=== PATIENT | female | born 1995 | race Caucasian/White ===

== ENCOUNTER 2024-08-31 10:09 | Emergency (ER) | payer OTHER, SELFPAY ==
[2024-08-31 10:16] VITALS: BP 120/60; PULSE 100; TEMP 36.7; O2SAT 98; BMI 31.3
--- NOTE | 2024-08-31 10:21 | XR_ITS ---
The [address] [address] Patient Name: CARMELINA GARCIA MRN: [id number] date: 1995 Sex: F Assigned Patient Location: ER Current Patient Location: ER Accession/Order Number: [id number] Exam Date: 08/31/2024 10:42 Report Date: 08/31/2024 13:48 At the request of: LIA GALLEGOS Procedure: XR foot RT min 3V EXAM: XR foot RT min 3V HISTORY: Fall. COMPARISON: None. TECHNIQUE: 3 views. FINDINGS: There is a minimally displaced fracture from the base of the fifth metatarsal. XR/XR foot RT min 3V IMPRESSION: Minimally displaced base of fifth metatarsal fracture. Electronically authenticated by: Luis Alberto GRIGGS Date: 08/31/2024 13:48
--- NOTE | 2024-08-31 10:22 | ED_ITS ---
HPI HPI - Extremity Injury (Lower) General Chief Complaint: Extremity Injury, Lower Stated Complaint: LOWER EXTREMITY INJURY Time Seen by Provider: 08/31/24 10:15 Source: patient Mode of arrival: walk-in Limitations: no limitations History of Present Illness HPI Narrative: 28-year-old female presents to the emergency department for pain in her right foot. She fell within the last hour and hurt the lateral aspect of her foot. She did not sustain any other injury. Related Data Previous Rx's ?Medication ?Instructions ?Recorded acetaminophen 300 mg-codeine 30 mg 1 tab PO Q6H PRN pain 5 days #20 08/31/24 tablet tabs Allergies Allergy/AdvReac Type Severity Reaction Status Date / Time No Known Drug Allergies Allergy Verified 08/31/24 10:20 Opioid HPI Opioid Management Most Recent Pain and Opioid Data: No Data to Display Review of Systems ROS Narrative A ten point review of systems is negative except as noted above. PFSH PFSH Social History Little interest or pleasure in doing things: not at all Feeling down, depressed, or hopeless: not at all Exam Narrative Exam Narrative: Nurses note and vital signs reviewed and patient is not hypoxic. General: The patient is sitting in a wheelchair and is in no distress. Skin: Warm, dry, no pallor noted. There is no rash noted. Head: Normocephalic, atraumatic Eye: Normal conjunctiva, no drainage Ears, Nose, Mouth, and Throat: oral mucosa is moist. Nares patent. Cardiovascular: Regular Rate and Rhythm Respiratory: Patient is in no distress, no accessory muscle use GI: Nontender Musculoskeletal: The right ankle is not tender. The skin is intact in her right foot but there is swelling and tenderness at the base of the fifth metatarsal area. Neurological: Awake and alert Psychiatric: Cooperative Constitutional Vital Signs, click to edit/add: Last Vital Signs Temp 98.0 F 08/31/24 10:16 Pulse 100 H 08/31/24 10:16 Resp 18 08/31/24 10:16 BP 120/60 08/31/24 10:16 Pulse Ox 98 08/31/24 10:16 Course Vital Signs Vital signs: Vital Signs Temperature 98.0 F 08/31/24 10:16 Pulse Rate 100 H 08/31/24 10:16 Respiratory Rate 18 08/31/24 10:16 Blood Pressure 120/60 08/31/24 10:16 Pulse Oximetry 98 08/31/24 10:16 Temperature 98.0 F 08/31/24 10:16 Pulse Rate 100 H 08/31/24 10:16 Respiratory Rate 18 08/31/24 10:16 Blood Pressure 120/60 08/31/24 10:16 Pulse Oximetry 98 08/31/24 10:16 MDM - Extremity Injury (Lower) MDM Narrative Medical decision making narrative: Right fifth metatarsal fracture is identified with displacement. The following procedure was performed by me. Short leg splint applied, application checked by me and found to be appropriate, she is neurovascular intact. She is referred to podiatry and placed on crutches and provided pain medication. Treatment diagnosis and follow-up were discussed with the patient. Differential Diagnosis Differential diagnosis: Likely other (Foot fracture, foot sprain) Imaging Data Right foot x-ray: My impression: Fifth metatarsal fracture, mildly displaced Discharge Plan Discharge Chief Complaint: Extremity Injury, Lower Clinical Impression: Metatarsal fracture Patient Disposition: Home, Self-Care Time of Disposition Decision: 11:24 Condition: Good Mode of Transportation: Private Vehicle Prescriptions / Home Meds: New acetaminophen-codeine 300-30 mg tablet 1 tab PO Q6H PRN (Reason: pain) 5 Days Qty: 20 0RF Print Language: Greenlandic Instructions: Crutch Instructions (ED), Foot Fracture in Adults (ED) Referrals: Pavan Pickard DDS [Physician] - 1 week Sb Forman DPM [Physician] - 1 week
== END 2024-08-31 11:45 | disposition home or self-care (01) ==
PROVIDERS: Emergency Provider Emergency Medicine
DX: S92.351A Displaced fracture of fifth metatarsal bone, right foot, initial encounter for closed fracture (principal); W19.XXXA Unspecified fall, initial encounter
CPT/HCPCS: 29515; 73630; 99283

== ENCOUNTER 2024-10-09 12:30 | Outpatient (OUT) | payer OTHER, SELFPAY ==
--- NOTE | 2024-10-09 12:32 | XR_ITS ---
The [address] [address] Patient Name: CARMELINA GARCIA MRN: [id number] date: 1995 Sex: F Assigned Patient Location: [facility] Current Patient Location: Accession/Order Number: [id number] Exam Date: 10/09/2024 12:35 Report Date: 10/12/2024 07:40 At the request of: ADAIR GRANADOS Procedure: XR foot RT min 3V PROCEDURE: XR foot RT min 3V HISTORY: pain in right foot M79.671 ; follow-up fracture COMPARISON: XR foot right 08/31/2024 FINDINGS: BONES:Transverse fractures through base of 5th metatarsal with intra-articular extension. Minimal lateral displacement. Increased lucency at fracture line compatible with early osseous changes of bone healing. No callus formation. SOFT TISSUES:No visible soft tissue swelling. EFFUSION:None visible. OTHER: Negative. XR/XR foot RT min 3V IMPRESSION: 1. Stable alignment and suspected early osseous changes involving base of 5th metatarsal intra-articular fracture. Electronically authenticated by: SHEELA DIAZ Date: 10/12/2024 07:40
--- OUTSIDE RECORDS SUMMARY | 2024-10-09 12:36 | XMS_ITS | CCD ---
Author Organization [facility] Inform ion Partnership [facility] Care Team Providers Care Cleaning Staff Supervisor Name Role Phone Manolo Davis Primary Care Provider AMNA TERRELL Attending Unavailable MANOLO DAVIS Primary Care Unavailab MANOLO Pedroza Primary Care Unavailab AMNA Rao Attending Unavailable Manolo Davis Primary Care Provider Unavailable Primary Care Provider UnavailManolo Morgan Primary Care Provider Unavail able Wilfrid Pickard MD, [facility] Primary Care Provider MALLY ROLDAN Consulting Unavailable MALLY ROLDAN Attending Unavailable PETER, PAVAN Primary Care Unavailable MALLY ROLDAN Admitting Unavailable Nely Arita Consulting Unavailable Fredy Lerma Unavailable Wilfrid Pickard MD, [facility] Primary Care Provider WILFRID PICKARD, PAVAN Primary Care Unavailabl e LIZZY LUGO Referring Unavail able KHORSAND PETER, PAVAN Primary Care Unavailmalcolm e LIZZY LUGO Admitting Unavail able LIZZY LUGO Attending Unavail able KHORSAND PETER, PAVAN Primary Care Unavailabl e KHORSAND PETER, PAVAN Primary Care Unavailabl MANOLO Ferreira Attending Unavailable JUSTIN MILES Attending Unavailable KHORSAND PETER, PAVAN Primary Care Unavailabl e KHORSAND PETER, PAVAN Primary Care Unavailabl e LIZZY LUGO Referring Unavail able KHORSAND PETER, PAVAN Primary Care Unavailabl e KHORSAND PETER, PAVAN Primary Care Unavailabl e FREDY LERMA Referring Unavailable Medications Current Medications Medication Drug Class(es) Dates Sig (Normalized) Sig (Original) acetaminophen 325 mg oral tablet (8 sources) Start: 12-02-2022 take 2 tablets by mouth every six hours as needed for pain acetaminophen (TYLENOL) 325 MG tablet Take 2 tablets by mouth every 6 hours as needed for Pain or Fever 60 tablet 0 12/02/2022 Active Start: 06-13-2022 End: 06-13-2022 acetaminophen (TYLENOL) tabl et 650 mg Start: 11-30-2020 End: 11-30-2020 acetaminophen (TYLENOL) tabl et 650 mg Tylenol Active acetaminophen 325 mg / HYDROcodone bitartrate 5 mg oral tablet (3 sources) Opioid Agonist Start: 06-13-2022 End: 06-18-2022 HYDROcodone-acetaminophen (NORCO) 5-325 MG per tablet Indications: Post-op pain Take 1 tablet by mouth every 6 hours as needed for Pain for up to 5 days. Intended supply: 5 days. Take lowest dose possible to manage pain 10 tablet 0 06/13/2022 06/18/2022 Active Start: 11-30-2020 End: 12-02-2020 take 1 tablet by mouth every four hours as needed for pain, then take 1 tablet by mouth as needed for pain HYDROcodone-acetaminophen (NORCO) 5-325 MG per tablet Indications: Post-op pain Take 1 tablet by mouth every 4 hours as needed for Pain for up to 2 days. Intended supply: 3 days. Take lowest dose possible to manage pain 12 tablet 0 11/30/2020 12/02/2020 Active Start: 11-30-2020 End: 11-30-2020 take 1 tablet by mouth once as needed for pain 1 tablet, Oral, ONCE PRN, Pain Moderate (4-6), Pain Severe (7-10), Starting 11/30/20 at 0751, For 1 dose PHASE II PACU only amoxicillin 500 mg oral capsule (1 source) Penicillin-class Antibacterial Start: 01-20-2023 End: 01-30-2023 take 1 capsule by mouth twice daily amoxicillin (AMOXIL) 500 MG capsule Take 1 capsule by mouth 2 times daily for 10 days 20 capsule 0 01/20/2023 01/30/2023 Active ARIPiprazole 5 mg oral tablet (2 sources) Atypical Antipsychotic Start: 12-20-2022 take 1 tablet by mouth at bedtime ARIPiprazole (ABILIFY) 5 MG tablet take 1 tablet by mouth at bedtime 0 12/20/2022 Active calcium chloride 0.0014 meq/ml / potassium chloride 0.004 meq/ml / sodium chloride 0.103 meq/ml / sodium lactate 0.028 meq/ml injectable solution (2 sources) Start: 06-13-2022 lactated ringers infusion Start: 11-30-2020 lactated ringe rs infusion dicyclomine hydrochloride 10 mg oral capsule (5 sources) Anticholinergic Start: 03-28-2022 take 1 capsule by mouth three times daily as needed Dicyclomine HCl 10 MG 1 capsule Orally Three times a day PRN for 30 day(s) March, Active Start: 03-24-2022 take 1 tablet by jessica three times daily for pain dicyclomine (BENTYL) 20 MG tablet take 1 tablet by mouth three times a day if needed for abdominal pain 0 03/24/2022 Active diphenhydrAMINE hydrochloride 25 mg oral capsule (1 source) Histamine-1 Receptor Antagonist Start: 08-04-2021 End: 08-14-2021 take 1 capsule by mouth every four hours as needed for sleep diphenhydrAMINE (BENADRYL) 25 MG capsule Take 1 capsule by mouth every 4 hours as needed for Sleep (Take one hour before bedtime) 30 capsule 0 08/04/2021 08/14/2021 Active doxycycline hyclate 100 mg oral tablet (1 source) Tetracycline-class Drug Start: 03-19-2020 End: 03-29-2020 take 1 tablet by mouth twice daily doxycycline hyclate (VIBRA-TABS) 100 MG tablet Indications: Abdominal pain, unspecified abdominal location Take 1 tablet by mouth 2 times daily for 10 days 20 tablet 0 03/19/2020 03/29/2020 Active DULoxetine 60 mg delayed release oral capsule (10 sources) Serotonin and Norepinephrine Reuptake Inhibitor Start: 12-20-2022 take 1 capsule by mouth once daily in the morning DULoxetine (CYMBALTA) 60 MG extended release capsule take 1 capsule by mouth every morning 0 12/20/2022 Active Start: 08-10-2021 take 1 capsule by mo [facility] once daily DULoxetine (CYMBALTA) 30 MG extended release capsule Take 30 mg by mouth daily 0 08/10/2021 Suspended DULoxetine HCl A ctive Ferrous Hltgmrhhe-B-Djqqm Ac id (IRON-C PO) (8 sources) Ferrous Gluconat e-C-Folic Acid (IRON-C PO) Take by mouth 0 Suspended Ferrous Gluconat e-C-Folic Acid (IRON-C PO) Take by mouth 0 Active ferrous sulfate 325 mg oral tablet (4 sources) take 1 tablet by mouth every other day Iron 325 (65 Fe) MG 1 tablet Orally EVERY OTHER DAY Active hydrOXYzine pamoate 25 mg oral capsule (12 sources) Antihistamine Start: 11-23-2022 hydrOXYzine pamoate (VISTARIL) 25 MG capsule USE DIRECTED UP TO TWICE A DAY IF NEEDED FOR PANIC ATTACK OR INSOMNIA 0 11/23/2022 Active Start: 02-08-2022 hydrOXYzine (A TARAX) 25 MG tablet hydrOXYzine HCl Active ibuprofen 600 mg oral tablet (13 sources) Nonsteroidal Anti-inflammatory Drug Start: 01-20-2023 take 1 tablet by mouth every six hours as needed for pain ibuprofen (IBU) 600 MG tablet Take 1 tablet by mouth every 6 hours as needed for Pain 20 tablet 0 01/20/2023 Active Start: 12-02-2022 End: 01-20-2023 take 1 tablet by mouth every six hours as needed for pain ibuprofen (IBU) 600 MG tablet Take 1 tablet by mouth every 6 hours as needed for Pain 120 tablet 0 12/02/2022 01/20/2023 Discontinued (REORDER) Start: 05-03-2022 ibuprofen (ADV IL;MOTRIN) tablet 800 mg Start: 08-04-2021 take 1 tablet by jessica th every six hours as needed for pain ibuprofen (IBU) 400 MG tablet Take 1 tablet by mouth every 6 hours as needed for Pain 30 tablet 0 08/04/2021 Suspended Motrin Active ketorolac tromethamine 10 mg oral tablet (3 sources) Nonsteroidal Anti-inflammatory Drug, Cyclooxygenase Inhibitor Start: 06-13-2022 End: 06-13-2023 take 1 tablet by mouth every six hours as needed for pain ketorolac (TORADOL) 10 MG tablet Take 1 tablet by mouth every 6 hours as needed for Pain 20 tablet 0 06/13/2022 06/13/2023 Active Start: 08-04-2021 End: 08-04-2021 ketorolac (TORADOL) injectio n 30 mg Start: 11-30-2020 take 1 tablet by jessica th every six hours as needed for pain ketorolac (TORADOL) 10 MG tablet Take 1 tablet by mouth every 6 hours as needed for Pain 12 tablet 0 11/30/2020 Active lamoTRIgine 25 mg oral tablet (2 sources) Mood Stabilizer, Anti-epileptic Agent Start: 12-20-2022 take 15-30 tablets by mouth once daily in the morning lamoTRIgine (LAMICTAL) 25 MG tablet TAKE 1 TABLET BY MOUTH EVERY MORNING ON DAYS 1-14 THEN 2 TABLETS EVERY MORNING ON DAYS 15-30 0 12/20/2022 Active lidocaine 0.05 mg/mg medicated patch (6 sources) Antiarrhythmic, Amide Local Anesthetic Start: 12-12-2022 apply 1 dose transdermal route once daily lidocaine (LIDODERM) 5 % APPLY 1 PATCH TO AFFECTED AREA ONCE DAILY IF NEEDED - LEAVE ON FOR 12 HOURS AND THEN OFF 12 HOURS 0 12/12/2022 Active Lidocaine Active 2 ml metoclopramide 5 mg/ml prefilled syringe (2 sources) Dopamine-2 Receptor Antagonist Start: 06-13-2022 End: 06-13-2022 10 mg, IntraVENous, ONCE PRN, 1 dose, Starting on Mon06/13/22 at 1129, Until Mon06/13/22 at 2359, Nausea Secondary antiemetic therapy. PACU only Start: 11-30-2020 End: 11-30-2020 10 mg, Intravenous, ONCE PRN , Nausea, Starting Mon11/30/20 at 0751, For 1 dose Initial antiemetic therapy. PACU only 2 ml ondansetron 2 mg/ml injection (1 source) Serotonin-3 Receptor Antagonist Start: 06-13-2022 End: 06-13-2022 4 mg, IntraVENous, ONCE PRN, 1 dose, Starting on Mon06/13/22 at 1129, Until Mon06/13/22 at 2359, Nausea Initial antiemetic therapy. PACU only oseltamivir 75 mg oral capsule (2 sources) Neuraminidase Inhibitor take 1 capsule by mouth twice daily oseltamivir (TAMIFLU) 75 MG capsule Take 75 mg by mouth 2 times daily 0 Active PARAGARD INTRAUTERINE COPPER IUD (1 source) PARAGARD INTRAUTERINE COPPER IUD 1 each by Intrauterine route once 0 Active PARoxetine hydrochloride 20 mg oral tablet (2 sources) Serotonin Reuptake Inhibitor Start: 10-24-2022 take 1 tablet by mouth once daily in the evening PARoxetine (PAXIL) 20 MG tablet take 1 tablet by mouth every evening 0 10/24/2022 Active prazosin 1 mg oral capsule (2 sources) alpha-Adrenergic Evette Start: 12-20-2022 take 1 capsule by mouth at bedtime prazosin (MINIPRESS) 1 MG capsule take 1 capsule by mouth at bedtime 0 12/20/2022 Active 1 ml promethazine hydrochloride 25 mg/ml injection (1 source) Phenothiazine Start: 11-30-2020 End: 11-30-2020 6.25 mg, Intramuscular, ONCE PRN, Nausea, Starting Mon11/30/20 at 0751, For 1 dose Recommended route is IM. Cau tion if used IV:Check IV site for infiltrate prior to and during administration.&nb sp; Secondary antiemetic therapy. For IV administration, dilute to 10ml with normal saline. Must be administered over at least 10 minutes. PACU only 1000 ml sodium chloride 9 mg/ml injection (9 sources) Start: 06-13-2022 IntraVENous, at 5-250 mL/hr, PRN, if patient receiving piggyback infusions and maintenance fluids are not ordered OR KVO fluids to protect IV site / prevent frequent line interruptions/ long duration, Starting on Mon06/13/22 at 1129 For piggyback infusion, administer at same rate as piggyback for a total of 25 mL. Enter 25 mL into dose field and piggyback rate into rate field of order. If piggyback is infusing at a rate less than 100 mL/hr, enter 25 mL into dose field and 100 mL/hr into rate field of order. For KVO fluids, enter rate of 20 mL/hr or less into rate field of order. PACU only Start: 06-13-2022 take 1 dose intraven ously twice daily 5-40 mL, IntraVENous, EVERY 12 HOURS SCHEDULED (2 times per day), First dose on Mon06/13/22 at 1145, Until Discontinued For Line Patency: Peripheral IV = 5 mL; Midline or Central Line = 10 mL/lumen. If following IV push medication, administer flush at same rate as the IV push. Flush volume is determined by type of infusion therapy being given. For non-viscous solutions use: Peripheral IV = 5 mL Midline or Central Line = 10 mL/lumen For viscous solutions (i.e. blood components, parenteral nutrition, contrast media, or after obtaining blood sample) use: Peripheral IV = 10 mL Midline or Central Line = 20 mL/lumen PACU only Start: 06-13-2022 take 5-40 mL intrave nously once as needed 5-40 mL, IntraVENous, PRN, Starting on Mon06/13/22 at 1129, Until Discontinued, Line Care, After every IV line use For Line Patency: Peripheral IV = 5 mL; Midline or Central Line = 10 mL/lumen. If following IV push medication, administer flush at same rate as the IV push. Flush volume is determined by type of infusion therapy being given. For non-viscous solutions use: Peripheral IV = 5 mL Midline or Central Line = 10 mL/lumen For viscous solutions (i.e. blood components, parenteral nutrition, contrast media, or after obtaining blood sample) use: Peripheral IV = 10 mL Midline or Central Line = 20 mL/lumen PACU only Start: 06-13-2022 0.9 % sodium c hloride infusion Start: 06-13-2022 sodium chlorid e flush 0.9 % injection 5-40 mL Start: 08-04-2021 End: 08-04-2021 0.9 % sodium chloride bolus Start: 11-30-2020 sodium chlorid e flush 0.9 % injection 10 mL Completed/Discontinued Medications Medication Drug Class(es) Dates Sig (Normalized) Sig (Original) aspirin 81 mg chewable tablet (1 source) Platelet Aggregation Inhibitor, Nonsteroidal Anti-inflammatory Drug Start: 08-04-2021 End: 08-04-2021 aspirin chewable tablet 81 mg ceFAZolin (ANCEF) 2 g in sodium chloride 0.9 % 100 mL IVPB (1 source) Start: 11-30-2020 End: 11-30-2020 ceFAZolin (ANCEF) 2 g in sodium chloride 0.9 % 100 mL IVPB ceFAZolin (ANCEF) 2000 mg in dextrose 5 % 100 mL IVPB (1 source) Start: 06-13-2022 End: 06-13-2022 ceFAZolin (ANCEF) 2000 mg in dextrose 5 % 100 mL IVPB dimenhyDRINATE 50 mg oral tablet (2 sources) Start: 06-13-2022 End: 06-13-2022 dimenhyDRINATE (DRAMAMINE) tablet 50 mg Start: 11-30-2020 End: 11-30-2020 dimenhyDRINATE (DRAMAMINE) t ablet 50 mg 0.4 ml enoxaparin sodium 100 mg/ml prefilled syringe (1 source) Low Molecular Weight Heparin Start: 06-13-2022 End: 06-13-2022 enoxaparin (LOVENOX) injection 40 mg etodolac 500 mg oral tablet (4 sources) Nonsteroidal Anti-inflammatory Drug Start: 10-12-2021 take 1 tablet by mouth twice daily for pain etodolac (LODINE) 500 MG tablet take 1 tablet by mouth twice a day if needed for pain 0 10/12/2021 Suspended 2 ml famotidine 10 mg/ml injection (1 source) Histamine-2 Receptor Antagonist Start: 06-13-2022 End: 06-13-2022 famotidine (PEPCID) injection 20 mg 2 ml fentaNYL 0.05 mg/ml injection (2 sources) Opioid Agonist Start: 06-13-2022 50 mcg, IntraVENous, EVERY 5 MIN PRN, 2 doses, Starting on Mon06/13/22 at 1129, Until Discontinued, Pain Severe (7-10) For Phase I. If Phase II oral narcotics have been administered in the last 60 minutes, do not administer IV narcotics unless specifically approved by provider. PACU only Start: 11-30-2020 50 mcg, Intrav enous, EVERY 5 MIN PRN, Pain Moderate (4-6), Pain Severe (7-10), Starting Mon11/30/20 at 0751, For 4 doses Phase I - Initial therapy for severe pain. PACU only gabapentin 400 mg oral capsule (1 source) Anti-epileptic Agent Start: 06-13-2022 End: 06-13-2022 gabapentin (NEURONTIN) capsule 400 mg PARAGARD INTRAUTERINE COPPER IUD (6 sources) End: 11-30-2020 PARAGARD INTRAUTERINE COPPER IUD 1 each by Intrauterine route once 0 11/30/2020 Discontinued (Stop Taking at Discharge) PARAGARD INTRAUT ERINE COPPER IUD 1 each by Intrauterine route once 0 Active Problems Active Problems Problem Classification Problem Date Documented Date Episodic/Chronic Disorders of teeth and jaw (2 sources) Toothache; Translations: [Other specified disorders of teeth and supporting structures] Onset: 01-20-2023 Episodic Endometriosis (2 sources) Uterine adenomyosis; Translations: [Endometriosis of uterus] Onset: 05-24-2022 Chronic Genitourinary symptoms and ill-defined conditions (2 sources) Dysuria; Translations: [Dysuria] Onset: 12-27-2022 Episodic Immunizations and screening for infectious disease (2 sources) Patient encounter status; Translations: [Encounter for screening for infections with a predominantly sexual mode of transmission] Onset: 12-27-2022 Episodic Menstrual disorders (14 sources) Menometrorrhagia; Translations: [Excessive and frequent menstruation with irregular cycle] Onset: 06-13-2022 11-30-2020 Chronic Noninfectious gastroenteritis (1 source) Noninfective gastroenteritis and colitis, unspecified; Translations: [NONINFECTIVE GE AND COLITIS UNS] Onset: 12-08-2021 Episodic Other aftercare (1 source) Other long-term (current) drug therapy; Translations: [OTH JAIL CURRENT DRUG THERAPY] Onset: 12-08-2021 Episodic Other connective tissue disease (1 source) Muscle pain; Translations: [Myalgia, unspecified site] Episodic Other female genital disorders (5 sources) Pain in female genitalia on intercourse; Translations: [Unspecified dyspareunia] Onset: 06-13-2022 Chronic Other female genital disorders (1 source) Unspecified dyspareunia; Translations: [Unspecified dyspareunia] Onset: 05-24-2022 Chronic Other female genital disorders (2 sources) Vaginal discharge; Translations: [Other specified noninflammatory disorders of vagina] Episodic Other screening for suspected conditions (not mental disorders or infectious disease) (4 sources) Thyroid function tests abnormal; Translations: [Abnormal results of thyroid function studies] Episodic Ovarian cyst (1 source) Complex ovarian cyst; Translations: [Complex ovarian cyst] Spondylosis; intervertebral disc disorders; other back problems (3 sources) Lumbar radiculopathy; Translations: [Acute back pain with sciatica] Episodic Substance-related disorders (1 source) Nicotine dependence, cigarettes, uncomplicated; Translations: [NICOTINE DEPEND CIGARETTES UNCOMP] Onset: 12-08-2021 Chronic Thyroid disorders (4 sources) Non-toxic multinodular goiter; Translations: [Nontoxic multinodular goiter] Chronic Unclassified (1 source) Cancer cervix screening status; Translations: [Screening for cervical cancer] Unclassified (1 source) Patient encounter status; Translations: [Preoperative testing] Urinary tract infections (2 sources) Urinary tract infection, site not specified; Translations: [Tubulo-interstitial nephritis, not specified as acute or chronic] Onset: 12-02-2022 Episodic Viral infection (1 source) Acute viral disease; Translations: [Viral infection, unspecified] Episodic Past or Other Problems Problem Classification Problem Date Documented Date Episodic/Chronic Abdominal pain (10 sources) Abdominal pain; Translations: [Pain in pelvis] Onset: 12-04-2021 Resolved: 02-23-2022 Episodic Early or threatened labor (20 sources) Premature labor; Translations: [Premature uterine contraction] Onset: 12-27-2018 Resolved: 11-30-2020 12-28-2018 Episodic Nonspecific chest pain (3 sources) Chest pain; Translations: [Chest pain, unspecified] Onset: 05-03-2022 Episodic Other nervous system disorders (5 sources) Postoperative pain ; Translations: [Other acute postprocedural pain] Onset: 06-13-2022 Episodic Other nervous system disorders (1 source) Other acute postprocedural pain; Translations: [Other acute postprocedural pain] Onset: 06-13-2022 Episodic Other and delivery including normal (19 sources) Normal labor; Translations: [Encounter for full-term uncomplicated delivery] Onset: 12-27-2018 Resolved: 12-28-2018 12-28-2018 Episodic Results Test Name Value Interpretation Reference Range Facility HCG, ,Urineon 01-20 Beta HCG ( test) Ql (U) Negative Normal NEG [facility] Comment on above: Result Comment: Spec imens with hCG levels near the threshold of the test (25 mIU/mL) may give a negative or indeterminate result. In such cases, another test should be performed with a new specimen in 48-72 hours. If early is suspected clinically in this setting, correlation with quantitative serum b-hCG level is suggested. [facility] has confirmed the use of plasma for this test. This has not been cleared or approved by the U.S. Food and Drug Administration. The FDA has determined that such clearance is not necessary. Performed By: #### L IP, CDP, CP #### [facility] [address] [place] [address] Boat Person: Navjot Nelson MD , Urineon 3 Beta HCG ( test) Ql (U) Negative NEGATIVE [facility] Comment on above: Specimens with hCG l evels near the threshold of the test (25 mIU/mL) may give a negative or indeterminate result. In such cases, another test should be performed with a new specimen in 48-72 hours. If early is suspected clinically in this setting, correlation with quantitative serum b-hCG level is suggested. [facility] has confirmed the use of plasma for this test. This has not been cleared or approved by the U.S. Food and Drug Administration. The FDA has determined that such clearance is not necessary. [facility] Urinalysis w/ Microon 2022 Bacteria 2+ Abnormal NONE [facility] Comment on above: Performed By: #### L IP, CDP, CP #### [facility] [address] [place] [address] [place] [address] Boat Person: Navjot Nelson MD Bilirubin, SemiQt,Ur Negative Normal NEG [facility] Comment on above: Performed By: #### L IP, CDP, CP #### [facility] [address] [place] [address] Boat Person: Navjot Nelson MD Blood, Urine Negative Normal NEG [facility] Comment on above: Performed By: #### L IP, CDP, CP #### [facility] [address] [place] [address] Boat Person: Navjot Nelson MD Clarity (U) Clear Normal CLEAR [facility] Comment on above: Performed By: #### L IP, CDP, CP #### [facility] [address] [place] [address] [address] [place], [place] [id number] Boat Person: Navjot Nelson MD Color (U) Yellow Normal YEL [facility] Comment on above: Performed By: #### L IP, CDP, CP #### [facility] [address] [place] [address] [address] [place], [place] [id number] Boat Person: Navjot Nelson MD Epithelial cells LM Ql (Urine sed) 2 TO 5 Normal 0-25 [facility] Comment on above: Performed By: #### L IP, CDP, CP #### [address] [place] [address] Boat Person: Navjot Nelson MD Glucose Ql (U) Negative Normal NEG [facility] Comment on above: Performed By: #### L IP, CDP, CP #### [address] [place], [place] [id number] Boat Person: Navjot Nelson MD Ketones Ql (U) Negative Normal NEG [facility] Comment on above: Performed By: #### L IP, CDP, CP #### [facility] [address] [place] [address] [place] [address] Boat Person: Navjot Nelson MD Leukocyte esterase Test strip Ql (U) Negative Normal NEG [facility] Comment on above: Performed By: #### L IP, CDP, CP #### [facility] [address] [place] [address] [place] [address] Boat Person: Navjot Nelson MD Mucus Strands 4+ Abnormal NONE [facility] Comment on above: Performed By: #### L IP, CDP, CP #### [facility] [address] [place] [address] [place] [address] Boat Person: Navjot Nelson MD Nitrite,Ur Negative Normal NEG [facility] Comment on above: Performed By: #### L IP, CDP, CP #### [facility] [address] [place] [address] [address] [place], [place] [id number] Boat Person: Navjot Nelson MD PH,Ur 6.0 Normal 5.0-9.0 [facility] Comment on above: Performed By: #### L IP, CDP, CP #### [address] [place] [address] Boat Person: Navjot Nelson MD Protein Ql (U) Negative Normal NEG [facility] Comment on above: Performed By: #### L IP, CDP, CP #### [address] [place] [address] Boat Person: Navjot Nelson MD Spec. Sherman,Ur 1.020 Normal 1.010-1.020 [facility] Comment on above: Performed By: #### L IP, CDP, CP #### [address] [place] [address] Boat Person: Navjot Nelson MD Urine RBC's 0 TO 2 Normal 0-2 [facility] Comment on above: Performed By: #### L IP, CDP, CP #### [address] [place] [address] Boat Person: Navjot Nelson MD Urine WBC's 0 TO 2 Normal 0-5 [facility] Comment on above: Performed By: #### L IP, CDP, CP #### [facility] [address] [place] [address] [place] [address] Boat Person: Navjot Nelson MD Urobilinogen,Ur Normal Normal NORM [facility] Comment on above: Performed By: #### L IP, CDP, CP #### [facility] [address] [place] [address] [address] [place], [place] [phone] Boat Person: Navjot Nelson MD Urinalysis with Microscopico n 01-20-2023 Bacteria, UA 2+ Abnormal None [facility] Bilirubin Urine Negative NEGATIVE [facility] Color, UA Yellow Yellow [facility] Epithelial Cells UA 2 TO 5 [facility] Glucose Auto test strip (U) [Mass/Vol] Negative NEGATIVE [facility] Interpretation and review of laboratory results Abnormal [facility] Ketones (U) [Mass/Vol] Negative NEGATIVE [facility] Leukocyte esterase Auto test strip Ql (U) Negative NEGATIVE [facility] Mucus, UA 4+ Abnormal None [facility] Nitrite Auto test strip Ql (U) Negative NEGATIVE [facility] Protein (U) [Mass/Vol] 6.0 mg/dL 5.0 - 9.0 [facility] Protein (U) [Mass/Vol] Negative NEGATIVE [facility] RBC clumps Auto (Urine sed) [#/Area] 0 TO 2 [facility] Specific Sherman, UA 1.020 1.010 - 1.020 [facility] Turbidity UA Clear Clear [facility] Urine Hgb Negative NEGATIVE [facility] Urobilinogen, Urine Normal Normal [facility] WBC, UA 0 TO 2 [facility] Chlamydia/GC,DNA Ampon 12-28 Chlamydia Probe Negative Normal NEG [facility] Comment on above: Result Comment: CHLA MYDIA TRACHOMATIS DNA not detected by nucleic acid amplification. This test is intended for medical purposes only and is not valid for the evaluation of suspected sexual abuse or for other forensic purposes. In certain contexts, culture may be required to meet applicable laws and regulations for diagnosis of C. trachomatis and N. gonorrhoeae infections. Per 2014 CDC recommendations, this test does not include confirmation of positive results by an alternative nucleic acid target. Performed By: #### [facility] #### [address] [id number] Boat Person: Murali Candelario MD Gonorrhea Probe Negative Normal NEG [facility] Comment on above: Result Comment: NEIS SERIA GONORRHOEAE DNA not detected by nucleic acid amplification. This test is intended for medical purposes only and is not valid for the evaluation of suspected sexual abuse or for other forensic purposes. In certain contexts, culture may be required to meet applicable laws and regulations for diagnosis of C. trachomatis and N. gonorrhoeae infections. Per 2014 CDC recommendations, this test does not include confirmation of positive results by an alternative nucleic acid target. Performed By: #### S WC #### [id number] [place], [place] [id number] Boat Person: Murali Candelario MD Vaginitis DNA Probeon 2022 Ovidio Negative Normal NEG [facility] Comment on above: Result Comment: for Ovidio sp. Method of testing is a DNA probe intended for detection and identification of Ovidio species, Gardnerella vaginalis, and Trichomonas vaginalis nucleic acid in vaginal fluid specimens from patients with symptoms of vaginitis/vaginosis. Performed By: #### L IP CDP, CP #### [address] [place] [address] Boat Person: Navjot Nelson MD Gardnerella Positive Abnormal [facility] Comment on above: Result Comment: for Gardnerella vaginalis Performed By: #### L ARI CDP, CP #### [address] [place] [address] Boat Person: Navjot Nelson MD Trichomonas Negative Normal [facility] Comment on above: Result Comment: for Trichomonas Vaginalis Performed By: #### L ARI, CDP, CP #### [address] [place] [address] Boat Person: Navjot Nelson MD Microscopic Urinalysison Bacteria, UA 1+ Abnormal None [facility] Epithelial Cells UA 2 TO 5 [facility] Interpretation and review of laboratory results Abnormal [facility] Mucus, UA 1+ Abnormal None [facility] RBC, UA None [facility] WBC, UA 0 TO 2 [facility] UA w/Reflex Cultureon 2022 Bilirubin, SemiQt,Ur Negative Normal NEG [facility] Comment on above: Performed By: #### L IP, CDP, CP #### [facility] [address] [place] [address] Dr. [place], [place] [id number] Boat Person: Navjot Nelson MD Blood, Urine Negative Normal NEG [facility] Comment on above: Performed By: #### L IP, CDP, CP #### [facility] [address] [place] [address] Dr. [place], [place] [id number] Boat Person: Navjot Nelson MD Clarity (U) Clear Normal CLEAR [facility] Comment on above: Performed By: #### L IP, CDP, CP #### [address] [place], [place] 1928183 Boat Person: Navjot Nelson MD Color (U) Yellow Normal YEL [facility] Comment on above: Performed By: #### L IP, CDP, CP #### [address] [place], [place] [id number] Boat Person: Navjot Nelson MD Glucose Ql (U) Negative Normal NEG [facility] Comment on above: Performed By: #### L IP, CDP, CP #### [address] [place] [address] Boat Person: Navjot Nelson MD Ketones Ql (U) Negative Normal NEG [facility] Comment on above: Performed By: #### L IP, CDP, CP #### [address] [place], [place] [id number] Boat Person: Navjot Nelson MD Leukocyte esterase Test strip Ql (U) Negative Normal NEG [facility] Comment on above: Performed By: #### L IP, CDP, CP #### [address] [place] [address] Boat Person: Navjot Nelson MD Nitrite,Ur Negative Normal NEG [facility] Comment on above: Performed By: #### L ARI CDP, CP #### [facility] [address] [place] [address] Dr. [place], [place] [id number] Boat Person: Navjot Nelson MD PH,Ur 7.0 Normal 5.0-9.0 [facility] Comment on above: Performed By: #### L IP CDP, CP #### [facility] [address] [place] [address] [place] [address] Boat Person: Navjot Nelson MD Protein Ql (U) Negative Normal NEG [facility] Comment on above: Performed By: #### L ANNIE CHAPMAN, CP #### [address] [place], [place] [id number] Boat Person: Navjot Nelson MD Spec. Sherman,Ur 1.025 High 1.010-1.020 [facility] Comment on above: Performed By: #### L ANNIE CHAPMAN, CP #### [facility] [address] [place] [address] Dr. [place], [place] [id number] Boat Person: Navjot Nelson MD Urobilinogen,Ur Normal Normal NORM [facility] Comment on above: Performed By: #### L ANNIE CHAPMAN, CP #### [address] [place], [place] [id number] Boat Person: Navjot Nelson MD Urinalysis with Reflex to Cu ltureon 12-27-2022 Bilirubin Urine Negative NEGATIVE [facility] Color, UA Yellow Yellow [facility] Glucose, Ur Negative NEGATIVE [facility] Interpretation and review of laboratory results Abnormal [facility] Ketones Ql (U) Negative NEGATIVE [facility] Leukocyte esterase Test strip Ql (U) Negative NEGATIVE [facility] Nitrite, Urine Negative NEGATIVE [facility] pH, UA 7.0 5.0 - 9.0 [facility] Protein, UA Negative NEGATIVE [facility] Specific Sherman, UA 1.025 High 1.010 - 1.020 [facility] Turbidity UA Clear Clear [facility] Urine Hgb Negative NEGATIVE [facility] Urobilinogen, Urine Normal Normal [facility] Urinalysis,Microon 3 Bacteria 1+ Abnormal NONE [facility] Comment on above: Performed By: #### L IP, CDP, CP #### [facility] [address] [place], [place] [phone] Boat Person: Navjot Nelson MD Epithelial cells LM Ql (Urine sed) 2 TO 5 Normal 0-25 [facility] Comment on above: Performed By: #### L IP, CDP, CP #### [address] [place], [place] 8111183 Boat Person: Navjot Nelson MD Mucus Strands 1+ Abnormal NONE [facility] Comment on above: Performed By: #### L IP, CDP, CP #### [facility] [address] [place], [place] [phone] Boat Person: Navjot Nelson MD Urine RBC's None Normal 0-2 [facility] Comment on above: Performed By: #### L IP, CDP, CP #### [facility] [address] [place] [address] Dr. [place], [place] [id number] Boat Person: Navjot Nelson MD Urine WBC's 0 TO 2 Normal 0-5 [facility] Comment on above: Performed By: #### L IP, CDP, CP #### [facility] [address] [place] [address] Dr. [place], [place] [phone] Boat Person: Navjot Nelson MD Vaginitis DNA Probeon 2022 Ovidio Species, DNA Probe Negative NEGATIVE [facility] Comment on above: for Ovidio sp. Method of testing is a DNA probe intended for detection and identification of Ovidio species, Gardnerella vaginalis, and Trichomonas vaginalis nucleic acid in vaginal fluid specimens from patients with symptoms of vaginitis/vaginosis. Gardnerella Vaginalis, DNA Probe Positive Abnormal NEGATIVE [facility] Comment on above: for Gardnerella vagi nalis Interpretation and review of laboratory results Abnormal [facility] Source .VAGINAL SWAB [facility] Trichomonas Vaginalis DNA Negative NEGATIVE [facility] Comment on above: for Trichomonas Vagi nalis [facility] Source .VAGINAL SWAB Normal [facility] Comment on above: Performed By: #### L ANNIE CHAPMAN, CP #### [facility] [address] [place] [address] [place] [address] Boat Person: Navjot Nelson MD Cult,Urineon 12-04-2022 Cult,Urine Specimen Description .CLEAN CATCH URINE Culture ESCHERICHIA COLI >[id number] CFU/ML Report Status FINAL 12/03/2022 SUSCEPTIBILITY Organism ESCHERICHIA COLI Method HUI Ampicillin >=32 RESISTANT Aztreonam <=1 SUSCEPTIBLE Cefazolin <=4 SUSCEPTIBLE Cefazolin sensitivity results can be used to predict the effectiveness of oral cephalosporins (eg. Cephalexin) in uncomplicated Urinary Tract Infections due to E. coli, K. pneumoniae, and P. mirabilis Ceftriaxone <=1 SUSCEPTIBLE Ciprofloxacin <=0.25 SUSCEPTIBLE ESBL NEGATIVE Gentamicin <=1 SUSCEPTIBLE Nitrofurantoin <=16 SUSCEPTIBLE Tobramycin <=1 SUSCEPTIBLE Trimethoprim/Sulfa <=20 SUSCEPTIBLE Piperacillin/Tazobac gallegos <=4 SUSCEPTIBLE Susceptible [facility] Comment on above: Performed By: #### U RC #### [address] [id number] Boat Person: Murali Candelario MD [facility] [address] [place] [address] [place] [address] Boat Person: Navjot Nelson MD CBC with Diffon 4 Abs. Basophil 0.04 k/uL Normal 0.00-0.20 [facility] Comment on above: Performed By: #### L ANNIE CHAPMAN, CP #### [facility] [address] [place] [address] Boat Person: Navjot Nelson MD Abs.Imm.Granulocyte 0.03 k/uL Normal 0.00-0.30 [facility] Comment on above: Performed By: #### L IP, CDP, CP #### [address] [place], [facility]83 Boat Person: Navjot Nelson MD Abs.Neutrophil (Seg) 9.22 k/uL High 1.50-8.10 [facility] Comment on above: Performed By: #### L IP, CDP, CP #### [address] [place], [place] [address] Boat Person: Navjot Nelson MD Basophils/100 WBC (Bld) 0 % Normal 0-2 [facility] Comment on above: Performed By: #### L IP, CDP, CP #### [address] [place], [place] [address] Boat Person: Navjot Nelson MD Eosinophils (Bld) [#/Vol] 0.11 10*3/uL Normal 0.00-0.44 [facility] Comment on above: Performed By: #### L IP, CDP, CP #### [address] [place], [facility]83 Boat Person: Navjot Nelson MD Eosinophils/100 WBC (Bld) 1 % Normal 1-4 [facility] Comment on above: Performed By: #### L IP, CDP, CP #### [address] [place], [place] [address] Boat Person: Navjot Nelson MD Erythrocyte distribution width (RBC) [Ratio] 13.0 % Normal 11.8-14.4 [facility] Comment on above: Performed By: #### L IP, CDP, CP #### [address] [place], [facility]83 Boat Person: Navjot Nelson MD Hematocrit (Bld) [Volume fraction] 35.3 % Low 36.3-47.1 [facility] Comment on above: Performed By: #### L IP, CDP, CP #### [address] [place] [address] Boat Person: Navjot Nelson MD Hemoglobin (Bld) [Mass/Vol] 12.4 g/dL Normal 11.9-15.1 [facility] Comment on above: Performed By: #### L IP, CDP, CP #### [address] [place] [address] Boat Person: Navjot Nelson MD Immature granulocytes/100 WBC (Bld) 0 % Normal 0 [facility] Comment on above: Performed By: #### L IP, CDP, CP #### [address] [place], [facility]83 Boat Person: Navjot Nelson MD Lymphocytes (Bld) [#/Vol] 1.41 10*3/uL Normal 1.10-3.70 [facility] Comment on above: Performed By: #### L IP, CDP, CP #### [address] [place], [facility]83 Boat Person: Navjot Nelson MD Lymphocytes/100 WBC (Bld) 12 % Low 24-43 [facility] Comment on above: Performed By: #### L IP, CDP, CP #### [address] [place], [facility]83 Boat Person: Navjot Nelson MD MCH (RBC) [Entitic mass] 31.6 pg Normal 25.2-33.5 [facility] Comment on above: Performed By: #### L IP, CDP, CP #### [address] [place] [address] Boat Person: Navjot Nelson MD MCHC (RBC) [Mass/Vol] 35.1 g/dL High 28.4-34.8 [place] Comment on above: Performed By: #### L IP, CDP, CP #### [address] [place], [place] 1926883 Boat Person: Navjot Nelson MD MCV (RBC) [Entitic vol] 89.8 fL Normal 82.6-102.9 [facility] Comment on above: Performed By: #### L IP, CDP, CP #### [facility] [address] [place], [facility]83 Boat Person: Navjot Nelson MD Monocytes (Bld) [#/Vol] 1.19 10*3/uL Normal 0.10-1.20 [facility] Comment on above: Performed By: #### L IP, CDP, CP #### [address] [place], [facility]83 Boat Person: Navjot Nelson MD Monocytes/100 WBC (Bld) 10 % Normal 3-12 [facility] Comment on above: Performed By: #### L IP, CDP, CP #### [address] [place], [facility]83 Boat Person: Navjot Nelson MD Neutrophil (Seg) 77 % High 36-65 [facility] Comment on above: Performed By: #### L IP, CDP, CP #### [address] [place], [facility]83 Boat Person: Navjot Nelson MD NRBC Automated 0.0 per 100 WBC Normal 0.0 [facility] Comment on above: Performed By: #### L IP, CDP, CP #### [address] [place], [facility]83 Boat Person: Navjot Nelson MD Platelet mean volume (Bld) [Entitic vol] 10.3 fL Normal 8.1-13.5 [facility] Comment on above: Performed By: #### L IP, CDP, CP #### [facility] [address] [place], [place] [id number] Boat Person: Navjot Nelson MD Platelets (Bld) [#/Vol] 169 10*3/uL Normal 138-453 [facility] Comment on above: Performed By: #### L IP CDP, CP #### [facility] [address] [place] [address] Boat Person: Navjot Nelson MD RBC (Bld) [#/Vol] 3.93 10*6/uL Low 3.95-5.11 [facility] Comment on above: Performed By: #### L IP, CDP, CP #### [facility] [address] [place] [address] Boat Person: Navjot Nelson MD WBC (Bld) [#/Vol] 12.0 10*3/uL High 3.5-11.3 [facility] Comment on above: Performed By: #### L IP CDP, CP #### [address] [place], [place] [id number] Boat Person: Navjot Nelson MD CT ABDOMEN PELVIS WO CONTRAS Ton 12-02-2022 CT ABDOMEN PELVIS WO CONTRAST EXAMINATION: CT OF THE ABDOMEN AND PELVIS WITHOUT CONTRAST 12/02/2022 8:03 am TECHNIQUE: CT of the abdomen and pelvis was performed without the administration of intravenous contrast. Multiplanar reformatted images are provided for review. Automated exposure control, iterative reconstruction, and/or weight based adjustment of the mA/kV was utilized to reduce the radiation dose to as low as reasonably achievable. COMPARISON: None. HISTORY: ORDERING SYSTEM PROVIDED HISTORY: flank pain, hematuira, UTI TECHNOLOGIST PROVIDED HISTORY: flank pain, hematuira, UTI Decision Support Exception - unselect if not a suspected or confirmed emergency medical condition->Emergency Medical Condition (MA) Is the patient ?->No FINDINGS: Lower Chest: There are no focal infiltrates or pleural effusions Organs: There is right Jeanne nephric stranding with right urothelial thickening. There is no evidence of obstruction. The left kidney is unremarkable. The remainder of the solid organs are within normal limits for a noncontrast exam. GI/Bowel: There is no evidence of bowel wall thickening, inflammation or free fluid. There is no bowel obstruction. The appendix is unremarkable. Pelvis: There is a small amount of free fluid. The urinary bladder is unremarkable Peritoneum/Retroperi toneum: The abdominal aorta and iliac arteries are normal in caliber.There is no pathologic adenopathy. Bones/Soft Tissues: There is degenerative disc disease at L5-S1 with endplate spurring IMPRESSION: Inflammatory changes involving the right kidney consistent with UTI/pyelonephritis. No evidence of urinary tract obstruction or drainable fluid collection Interpreted by: Roger Nevarez MD Signed by: Roger Nevarez MD 12/02/22 Final result Normal [facility] Comp Metabolic Profon 2022 Albumin [Mass/Vol] 4.3 g/dL Normal 3.5-5.2 [facility] Comment on above: Performed By: #### L IP CDP, CP #### [address] [place] [address] Boat Person: Navjot Nelson MD Albumin/Glob Ratio 1.3 Normal 1.0-2.5 [facility] Comment on above: Performed By: #### L IP, CDP, CP #### [address] [place] [address] Boat Person: Navjot Nelson MD Alkaline Phos 82 U/L Normal 35-104 [facility] Comment on above: Performed By: #### L IP, CDP, CP #### [address] [place] [address] Boat Person: Navjot Nelson MD ALT [Catalytic activity/Vol] 12 U/L Normal 5-33 [facility] Comment on above: Performed By: #### L IP, CDP, CP #### [facility] [address] [place] [address] [place] [address] Boat Person: Navjot Nelson MD Anion gap [Moles/Vol] 9 mmol/L Normal 9-17 [place] Comment on above: Performed By: #### L IP, CDP, CP #### [address] [place], [place] [id number] Boat Person: Navjot Nelson MD AST [Catalytic activity/Vol] 14 U/L Normal <32 [facility] Comment on above: Performed By: #### L IP, CDP, CP #### [facility] [address] [place], [place] [id number] Boat Person: Navjot Nelson MD Bilirubin [Mass/Vol] 0.7 mg/dL Normal 0.3-1.2 [facility] Comment on above: Performed By: #### L IP, CDP, CP #### [facility] [address] [place], [place] [id number] Boat Person: Navjot Nelson MD BUN/CRE Ratio 16 Normal 9-20 [facility] Comment on above: Performed By: #### L IP, CDP, CP #### [facility] [address] [place], [place] [id number] Boat Person: Navjot Nelson MD Calcium [Mass/Vol] 9.3 mg/dL Normal 8.6-10.4 [facility] Comment on above: Performed By: #### L IP, CDP, CP #### [facility] [address] [place], [place] [id number] Boat Person: Navjot Nelson MD Chloride [Moles/Vol] 100 mmol/L Normal 98-107 [facility] Comment on above: Performed By: #### L IP, CDP, CP #### [facility] [address] [place], [place] [id number] Boat Person: Navjot Nelson MD CO2 [Moles/Vol] 24 mmol/L Normal 20-31 [facility] Comment on above: Performed By: #### L IP, CDP, CP #### [facility] [address] [place] [address] Boat Person: Navjot Nelson MD Creatinine [Mass/Vol] 0.62 mg/dL Normal 0.50-0.90 [facility] Comment on above: Performed By: #### L IP, CDP, CP #### [address] [place] [address] Boat Person: Navjot Nelson MD GFR/1.73 sq M.predicted among non-blacks MDRD (S/P/Bld) [Vol rate/Area] mL/min/{1.73_m2} Normal >60 [facility] Comment on above: Result Comment: Effective Aug 29, 2022 These results are not intended for use in patients <18 years of age. eGFR results are calculated without a race factor using the 2020 CKD-EPI equation. Careful clinical correlation is recommended, particularly when comparing to results calculated using previous equations. The CKD-EPI equation is less accurate in patients with extremes of muscle mass, extra-renal metabolism of creatine, excessive creatine ingestion, or following therapy that affects renal tubular secretion. Performed By: #### L IP CDP, CP #### [address] [place] [address] Boat Person: Navjot Nelson MD Glucose [Mass/Vol] 95 mg/dL Normal 70-99 [facility] Comment on above: Performed By: #### L ARI CDP, CP #### [address] [place] [address] Boat Person: Navjot Nelson MD Potassium [Moles/Vol] 4.0 mmol/L Normal 3.7-5.3 [facility] Comment on above: Performed By: #### L IP, CDP, CP #### [address] [place] [address] Boat Person: Navjot Nelson MD Protein [Mass/Vol] 7.5 g/dL Normal 6.4-8.3 [facility] Comment on above: Performed By: #### L IP, CDP, CP #### [address] [place] [address] Boat Person: Navjot Nelson MD Sodium [Moles/Vol] 133 mmol/L Low 135-144 [facility] Comment on above: Performed By: #### L IP, CDP, CP #### [facility] [address] [place] [address] Boat Person: Navjot Nelson MD Urea nitrogen [Mass/Vol] 10 mg/dL Normal 6-20 [facility] Comment on above: Performed By: #### L IP, CDP, CP #### [facility] [address] [place], [place] [id number] Boat Person: Navjot Nelson MD Lactic Acidon 4 Lactate [Moles/Vol] 0.9 mmol/L Normal 0.5-2.2 [facility] Comment on above: Performed By: #### L ACTIC #### [address] [place] [address] Boat Person: Navjot Nelson MD Lipaseon Lipase [Catalytic activity/Vol] 23 U/L Normal 13-60 [facility] Comment on above: Performed By: #### L IP, CDP, CP #### [address] [place] [address] Boat Person: Navjot Nelson MD Urinalysis w/ Microon 9 Bacteria 4+ Abnormal NONE [facility] Comment on above: Performed By: #### L IP, CDP, CP #### [facility] [address] [place] [address] Boat Person: Navjot Nelson MD Bilirubin, SemiQt,Ur Negative Normal NEG [facility] Comment on above: Performed By: #### L IP, CDP, CP #### [facility] [address] [place] [address] Boat Person: Navjot Nelson MD Blood, Urine 2+ Abnormal NEG [facility] Comment on above: Performed By: #### L IP, CDP, CP #### [facility] [address] [place] [address] Dr. [place], [place] [phone] Boat Person: Navjot Nelson MD Clarity (U) Cloudy Abnormal CLEAR [facility] Comment on above: Performed By: #### L IP, CDP, CP #### [facility] [address] [place] [address] Dr. [place], [place] [id number] Boat Person: Navjot Nelson MD Color (U) Yellow Normal YEL [facility] Comment on above: Performed By: #### L IP, CDP, CP #### [facility] [address] [place] [address] Dr. [place], [place] [id number] Boat Person: Navjot Nelson MD Epithelial cells LM Ql (Urine sed) 5 TO 10 Normal 0-25 [facility] Comment on above: Performed By: #### L IP, CDP, CP #### [facility] [address] [place] [address] Dr. [place], [place] [id number] Boat Person: Navjot Nelson MD Glucose Ql (U) Negative Normal NEG [facility] Comment on above: Performed By: #### L IP, CDP, CP #### [address] [place], [place] [id number] Boat Person: Navjot Nelson MD Ketones Ql (U) Negative Normal NEG [facility] Comment on above: Performed By: #### L IP, CDP, CP #### [facility] [address] [place] [address] [place] [address] Boat Person: Navjot Nelson MD Leukocyte esterase Test strip Ql (U) LARGE Abnormal NEG [facility] Comment on above: Performed By: #### L IP, CDP, CP #### [address] [place], [place] [id number] Boat Person: Navjot Nelson MD Nitrite,Ur Positive Abnormal NEG [facility] Comment on above: Performed By: #### L IP, CDP, CP #### [facility] [address] [place] [address] Dr[address] [place], [place] [phone] Boat Person: Navjot Nelson MD PH,Ur 6.0 Normal 5.0-9.0 [facility] Comment on above: Performed By: #### L IP, CDP, CP #### [facility] [address] [place] [address] [place] [address] Boat Person: Navjot Nelson MD Protein Ql (U) 2+ Abnormal NEG [facility] Comment on above: Performed By: #### L IP, CDP, CP #### [address] [place], [place] [phone] Boat Person: Navjot Nelson MD Spec. Sherman,Ur 1.025 High 1.010-1.020 [facility] Comment on above: Performed By: #### L IP, CDP, CP #### [facility] [address] [place] [address] Dr[place], [place] [phone] Boat Person: Navjot Nelson MD Urine RBC's 10 TO 20 Normal 0-2 [facility] Comment on above: Performed By: #### L IP, CDP, CP #### [address] [place] [address] Boat Person: Navjot Nelson MD Urine WBC's GREATER THAN 100 Normal 0-5 [facility] Comment on above: Performed By: #### L IP, CDP, CP #### [facility] [address] [place] [address] Dr. [place], [place] [phone] Boat Person: Navjot Nelson MD Urobilinogen,Ur Normal Normal NORM [facility] Comment on above: Performed By: #### L IP, CDP, CP #### [address] 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 - NEGATIVE FOR DYSPLASIA. - ENDOMYOMETRIUM: - ENDOMETRIAL AND SUPERFICIAL MYOMETRIAL FIBROSIS WITH DYSTROPHIC CALCIFICATION, CONSISTENT WITH PREVIOUS INTERVENTION. - ADENOMYOSIS. - NEGATIVE FOR ENDOMETRIAL HYPERPLASIA, ATYPIA OR MALIGNANCY. Ortiz Mason M.D. Electronically Signed Out 06/15/2022 Clinical Information Pre-op Diagnosis: PELVIC PAIN, ADENOMYOSIS, DYSPAREUNIA, PREVIOUS PAP SMEAR (05/24/2022, [employer] [id number]) WITH ASCUS AND POSITIVE HR HPV Operative Findings: CERVIX AND UTERUS Operation Performed: HYSTERECTOMY VAGINAL LAPAROSCOPIC ROBOTIC ASSISTED, POSS. BSO, POSS. LAPAROSCOPIC COLPOPEXY Source of Specimen A: CERVIX AND UTERUS Gross Description CARMELINA GARCIA, CERVIX AND UTERUS 74.3 gram uterus and cervix (7.7 cm cervix-fundus x 4.5 cm cornu-cornu x 3.6 cm anterior-posterior). The uterus serosa is omalley-pink and smooth with a focal area of disruption at the fundus (anterior = blue and posterior = black). There is a 3.7 x 3.2 cm omalley-pink, smooth ectocervix which surrounds a 1.4 cm slit-like os. The specimen is bivalved to reveal a 3.0 x 0.7 cm scarred-appearing endometrial cavity. The aforementioned fundic defect is contiguous with the endometrial cavity. The cavity is lined by omalley-pink, scarred-appearing mucosa and averages < 0.1 cm in thickness. The myometrium is omalley-pink, rubbery, scarred-appearing with a few cysts identified. The cysts range from 0.2 cm to 0.4 cm. The presumed posterior lower uterine segment is markedly fibrotic. The cervix is lined by a omalley-pink, finely corrugated mucosa. Sectioning of the cervix reveals omalley, rubbery cut surfaces with multiple nabothian cysts. These cysts measure up to 0.7 cm and contain cloudy mucoid material. No well-defined masses or lesions are identified. Cassette summary: 1 anterior endomyometrium, 2 anterior cervix, 3 anterior endomyometrium with cysts, 4 posterior endomyometrium, 5 fibrotic posterior lower uterine segment, 6 posterior cervix, 7-22 remainder of cervix. tm Microscopic Description Microscopic examination performed. SURGICAL PATHOLOGY CONSULTATION Patient Name: [facility] [id number] Path Number: [id number] [facility] ANATOMIC PATHOLOGY [address] [place] [id number] [facility] Comment on above: Performed By: #### L IP, ANNIE, GIOVANNA #### [facility] [address] [place] [address] Boat Person: Navjot Nelson MD HPV DNA High Riskon 05-26-20 22 HPV Interp [facility] Comment on above: Result Comment: This test amplifies and detects DNA of 14 high-risk HPV types associated with cervical cancer and its precursor lesions (HPV types 16,18, 31, 33, 35, 39, 45, 51, 52, 56, 58, 59, 66, and 68). Sensitivity may be affected by specimen collection methods, stage of infection, and the presence of interfering substances. Results should be interpreted in conjunction with other available laboratory and clinical data. A negative high-risk HPV result does not exclude the possibility of future cytologic HSIL or underlying CIN2-3 or cancer. This test is intended for medical purposes only and is not valid for the evaluation of suspected sexual abuse or for other forensic purposes. Performed By: #### H PVH #### [address] [id number] Boat Person: Murali Candelario MD HPV Type 16 Detected Abnormal [facility] Comment on above: Performed By: #### H PVH #### [address] [id number] Boat Person: Murali Candelario MD HPV Type 18 Not detected Normal [facility] Comment on above: Performed By: #### H PVH #### [address] [id number] Boat Person: Murali Candelario MD Other High Risk HPV Detected Abnormal [facility] Comment on above: Performed By: #### H PVH #### [address] [address] Boat Person: Murali Candelario MD HPV DNA High Riskon 05-25-20 Source .GENITAL - NOT SPECIFIED Normal [facility] Comment on above: Performed By: #### H PVH #### [facility] [address] [place], [place] [phone] Boat Person: Murali Candelario MD HPV Sample .THIN PREP Normal [facility] Comment on above: Performed By: #### H PVH #### [facility] [address] [place] [address] Boat Person: Murali Candelario MD Cytologyon 05-24-2022 Cytology (NOTE) INTERPRETATION Cervical material, (ThinPrep vial, Imaging-assisted review): Specimen Adequacy: Satisfactory for evaluation. - Endocervical/transfo rmation zone component present. Descriptive Diagnosis: Atypical squamous cells of undetermined significance (ASC-US). Covering And Lining Supervisor: AMY Magana M.D. Electronically Signed Out rdd/06/03/2022 Procedure/Addendum HPV Procedure Report Date Ordered: 05/25/2022 Status: Signed Out Date Complete: 05/26/2022 By: System Interface Date Reported: 05/26/2022 Sample: HPV Type 16 Result: DETECTED Ref Range: (Not Detected) Sample: HPV Type 18 Result: Not Detected Ref Range: (Not Detected) Sample: Other High Risk HPV Result: DETECTED Ref Range: (Not Detected) Sample: HPV Interp Result: Ref Range: (Not Detected) This test amplifies and detects DNA of 14 high-risk HPV types associated with cervical cancer and its precursor lesions (HPV types 16,18, 31, 33, 35, 39, 45, 51, 52, 56, 58, 59, 66, and 68). Sensitivity may be affected by specimen collection methods, stage of infection, and the presence of interfering substances. Results should be interpreted in conjunction with other available laboratory and clinical data. A negative high-risk HPV result does not exclude the possibility of future cytologic HSIL or underlying CIN2-3 or cancer. This test is intended for medical purposes only and is not valid for the evaluation of suspected sexual abuse or for other forensic purposes. 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 [place], [place] [phone] Normal [facility] Comment on above: Performed By: #### L IP, CDP, CP #### [facility] [address] [place] [address] Boat Person: Navjot Nelson MD Microscopic Urinalysison - [facility] Bacteria, UA 1+ Abnormal None [facility] Epithelial Cells UA 2 TO 5 [facility] Interpretation and review of laboratory results Abnormal [facility] RBC, UA 0 TO 2 [facility] WBC, UA 0 TO 2 [facility] UA w/Reflex Cultureon 2021 Bilirubin, SemiQt,Ur Negative Normal NEG [facility] Comment on above: Performed By: #### U MICAO, UAX #### [facility] [address] [place] [address] Boat Person: Navjot Nelson MD Blood, Urine Negative Normal NEG [facility] Comment on above: Performed By: #### U MICAO, UAX #### [facility] [address] [place] [address] Boat Person: Navjot Nelson MD Clarity (U) Clear Normal CLEAR [facility] Comment on above: Performed By: #### U MICAO, UAX #### [facility] [address] [place] [address] Boat Person: Navjot Nelson MD Color (U) Yellow Normal YEL [facility] Comment on above: Performed By: #### U MICAO, UAX #### [facility] [address] [place], [place] [phone] Boat Person: Navjot Nelson MD Glucose Ql (U) Negative Normal NEG [facility] Comment on above: Performed By: #### U MICAO, UAX #### [facility] [address] [place] [address] Dr. [place], [place] [phone] Boat Person: Navjot Nelson MD Ketones Ql (U) Negative Normal NEG [facility] Comment on above: Performed By: #### U MICAO, UAX #### [facility] [address] [place] [address] Dr. [place], [place] [phone] Boat Person: Navjot Nelson MD Leukocyte esterase Test strip Ql (U) Negative Normal NEG [facility] Comment on above: Performed By: #### U MICAO, UAX #### [address] [place], [place] [phone] Boat Person: Navjot Nelson MD Nitrite,Ur Negative Normal [facility] Comment on above: Performed By: #### U MICAO, UAX #### [address] [place], [place] [phone] Boat Person: Navjot Nelson MD PH,Ur 7.0 Normal 5.0-9.0 [facility] Comment on above: Performed By: #### U MICAO, UAX #### [facility] [address] [place] [address] Dr. [place], [place] [phone] Boat Person: Navjot Nelson MD Protein Ql (U) Negative Normal NEG [facility] Comment on above: Performed By: #### U MICAO, UAX #### [facility] [address] [place] [address] Dr. [place], [place] [phone] Boat Person: Navjot Nelson MD Spec. Sherman,Ur <1.005 Low 1.010-1.020 [facility] Comment on above: Performed By: #### U MICAO, UAX #### [facility] [address] [place] [address] Boat Person: Navjot Nelson MD Urobilinogen,Ur Normal Normal NORM [facility] Comment on above: Performed By: #### U MICAO, UAX #### [facility] [address] [place] [address] Boat Person: Navjot Nelson MD Urinalysis with Reflex to Cu ltureon 05-24-2022 Bilirubin Urine Negative NEGATIVE [facility] Color, UA Yellow Yellow [facility] Glucose, Ur Negative NEGATIVE [facility] Interpretation and review of laboratory results Abnormal [facility] Ketones Ql (U) Negative NEGATIVE [facility] Leukocyte esterase Test strip Ql (U) Negative NEGATIVE [facility] Nitrite, Urine Negative NEGATIVE [facility] pH, UA 7.0 [facility] Protein, UA Negative NEGATIVE [facility] Specific Sherman, UA <1.005 Low [facility] Turbidity UA Clear Clear [facility] Urine Hgb Negative NEGATIVE [facility] Urobilinogen, Urine Normal Normal [facility] Urinalysis,Microon 2 ----- Normal [facility] Comment on above: Performed By: #### U MICAO, UAX #### [facility] [address] [place] [address] Boat Person: Navjot Nelson MD Bacteria 1+ Abnormal NONE [facility] Comment on above: Performed By: #### U MICAO, UAX #### [facility] [address] [place] [address] [place] [address] Boat Person: Navjot Nelson MD Epithelial cells LM Ql (Urine sed) 2 TO 5 Normal 0-25 [facility] Comment on above: Performed By: #### U MICAO, UAX #### [facility] [address] [place], [place] [phone] Boat Person: Navjot Nelson MD Urine RBC's 0 TO 2 Normal 0-2 [facility] Comment on above: Performed By: #### U MICAO, UAX #### [facility] [address] [place], [place] [phone] Boat Person: Navjot Nelson MD Urine WBC's 0 TO 2 Normal 0-5 [facility] Comment on above: Performed By: #### U MICAO, UAX #### [facility] [address] [place], [place] [phone] Boat Person: Navjot Nelson MD Basic Metabolic Panelon Anion gap [Moles/Vol] 13 mmol/L 9 - 17 mmol/L [facility] Calcium [Mass/Vol] 9.4 mg/dL 8.6 - 10. 4 mg/dL [facility] Chloride [Moles/Vol] 100 mmol/L 98 - 10 7 mmol/L [facility] CO2 [Moles/Vol] 24 mmol/L 20 - 31 mmol/L [facility] Creatinine [Mass/Vol] 0.84 mg/dL 0.50 - 0.90 mg/dL [facility] GFR >60 >60 mL/min [facility] GFR Non- >60 >60 mL/min [facility] Glucose [Mass/Vol] 97 mg/dL 70 - 99 mg/dL [facility] Potassium [Moles/Vol] 4.0 mmol/L 3.7 - 5.3 mmol/L [facility] Sodium [Moles/Vol] 137 mmol/L 135 - 144 mmol/L [facility] Urea nitrogen (BldV) [Mass/Vol] 8 mg/dL 6 - 20 mg/dL [facility] Urea nitrogen/Creatinine (Bld) [Mass ratio] 10 [facility] Basic Metabolic Profon 05-03 (cont.) Normal [facility] Comment on above: Result Comment: Aver age GFR for 20-29 years old: 116 mL/min/1.73sq m Chronic Kidney Disease: <60 mL/min/1.73sq m Kidney failure: <15 mL/min/1.73sq m eGFR calculated using average adult body mass. Additional eGFR calculator available at: http://www.[employer]/multiple_crcl_2012.htm Performed By: #### L IP, CDP, CP #### [facility] [address] [place] [address] Dr[address] [place], [place] [phone] Boat Person: Navjot Nelson MD Anion gap [Moles/Vol] 13 mmol/L Normal 9-17 [place] Comment on above: Performed By: #### L IP, CDP, CP #### [address] [place], [place] [phone] Boat Person: Navjot Nelson MD BUN/CRE Ratio 10 Normal 9-20 [facility] Comment on above: Performed By: #### L IP, CDP, CP #### [address] [place], [place] [phone] Boat Person: Navjot Nelson MD Calcium [Mass/Vol] 9.4 mg/dL Normal 8.6-10.4 [facility] Comment on above: Performed By: #### L IP, CDP, CP #### [address] [place], [place] [phone] Boat Person: Navjot Nelson MD Chloride [Moles/Vol] 100 mmol/L Normal 98-107 [facility] Comment on above: Performed By: #### L IP, CDP, CP #### [address] [place], [place] [phone] Boat Person: Navjot Nelson MD CO2 [Moles/Vol] 24 mmol/L Normal 20-31 [facility] Comment on above: Performed By: #### L IP, CDP, CP #### [address] [place] [address] Boat Person: Navjot Nelson MD Creatinine [Mass/Vol] 0.84 mg/dL Normal 0.50-0.90 [place] Comment on above: Performed By: #### L IP, CDP, CP #### [facility] [address] [place], [place] [phone] Boat Person: Navjot Nelson MD GFR, Amer >60 Normal >60 [facility] Comment on above: Performed By: #### L IP, CDP, CP #### [facility] [address] [place], [place] [phone] Boat Person: Navjot Nelson MD GFR,non Amer >60 Normal >60 [facility] Comment on above: Performed By: #### L IP, CDP, CP #### [facility] [address] [place], [place] [phone] Boat Person: Navjot Nelson MD Glucose [Mass/Vol] 97 mg/dL Normal 70-99 [facility] Comment on above: Performed By: #### L IP, CDP, CP #### [facility] [address] [place], [place] [phone] Boat Person: Navjot Nelson MD Potassium [Moles/Vol] 4.0 mmol/L Normal 3.7-5.3 [place] Comment on above: Performed By: #### L IP, CDP, CP #### [facility] [address] [place], [place] [phone] Boat Person: Navjot Nelson MD Sodium [Moles/Vol] 137 mmol/L Normal 135-144 [facility] Comment on above: Performed By: #### L IP, CDP, CP #### [facility] [address] [place], [place] [phone] Boat Person: Navjot Nelson MD Staging: Normal [facility] Comment on above: Result Comment: Stag e 1: Some kidney damage normal GFR Stage 2: Mild kidney damage GFR 60-89 Stage 3: Moderate kidney damage GFR 30-59 Stage 4: Severe kidney damage GFR 15-29 Stage 5: Severe kidney damage GFR <15 ESRD - chronic treatment by dialysis or transplant Performed By: #### L ANNIE CHAPMAN, CP #### [facility] [address] [place] [address] Boat Person: Navjot Nelson MD Urea nitrogen [Mass/Vol] 8 mg/dL Normal 6-20 [facility] Comment on above: Performed By: #### L ANNIE CHAPMAN, CP #### [facility] [address] [place] [address] Boat Person: Navjot Nelson MD CBC with Auto Differentialon 05-03-2022 Absolute Eos # 0.05 [facility] Absolute Immature Granulocyte <0.03 [facility] Absolute Lymph # 1.67 [facility] Absolute Potter # 0.79 [facility] Basophils (Bld) [#/Vol] 0.06 10*3/uL [facility] Basophils/100 WBC (Bld) 1 % 0 - 2 % [facility] Eosinophils/100 WBC (Bld) 1 % 1 - 4 % [facility] Hematocrit (Bld) [Volume fraction] 43.7 % 36.3 - 47.1 % [facility] Hemoglobin (Bld) [Mass/Vol] 14.8 g/dL 11.9 - 15.1 g/dL [facility] Immature granulocytes/100 WBC (Bld) 0 % 0 [facility] Interpretation and review of laboratory results Abnormal [facility] Lymphocytes/100 WBC (Bld) 23 % Low 24 - 43 % [facility] MCH (RBC) [Entitic mass] 30.4 pg 25.2 - 33.5 pg [facility] MCHC (RBC) [Mass/Vol] 33.9 g/dL 28.4 - 34.8 g/dL [facility] MCV (RBC) [Entitic vol] 89.7 fL 82.6 - 102.9 fL [facility] Monocytes/100 WBC (Bld) 11 % 3 - 12 % [facility] NRBC Automated 0.0 0.0 per 100 WBC [facility] Platelet distribution width (Bld) [Ratio] 12.1 % 11.8 - 14.4 % [facility] Platelet mean volume (Bld) [Entitic vol] 10.7 fL 8.1 - 13.5 fL [facility] Platelets (Bld) [#/Vol] 191 10*3/uL [facility] RBC (Bld) [#/Vol] 4.87 10*6/uL 3.95 - 5.1 1 m/uL [facility] Segmented neutrophils/100 WBC (Bld) 64 % 36 - 65 % [facility] Segs Absolute 4.67 [facility] WBC (Bld) [#/Vol] 7.3 10*3/uL [facility] CBC with Diffon 05-03-2022 Abs. Basophil 0.06 k/uL Normal 0.00-0.20 [facility] Comment on above: Performed By: #### L ANNIE CHAPMAN, CP #### [facility] [address] [place] [address] [place] [phone] Boat Person: Navjot Nelson MD Abs.Imm.Granulocyte <0.03 Normal 0.00-0.30 [facility] Comment on above: Performed By: #### L ANNIE CHAPMAN, CP #### [facility] [address] [place] [address] Dr[place] [phone] Boat Person: Navjot Nelson MD Abs.Neutrophil (Seg) 4.67 k/uL Normal 1.50-8.10 [facility] Comment on above: Performed By: #### L ANNIE CHAPMAN, CP #### [address] [place] [address] Boat Person: Navjot Nelson MD Basophils/100 WBC (Bld) 1 % Normal 0-2 [facility] Comment on above: Performed By: #### L ANNIE CHAPMAN, CP #### [facility] [address] [place], [place] [phone] Boat Person: Navjot Nelson MD Eosinophils (Bld) [#/Vol] 0.05 10*3/uL Normal 0.00-0.44 [facility] Comment on above: Performed By: #### L IP, CDP, CP #### [address] [place], [facility] Boat Person: Navjot Nelson MD Eosinophils/100 WBC (Bld) 1 % Normal 1-4 [facility] Comment on above: Performed By: #### L IP, CDP, CP #### [address] [place], [facility] Boat Person: Navjot Nelson MD Erythrocyte distribution width (RBC) [Ratio] 12.1 % Normal 11.8-14.4 [facility] Comment on above: Performed By: #### L IP, CDP, CP #### [address] [place], [facility] Boat Person: Navjot Nelson MD Hematocrit (Bld) [Volume fraction] 43.7 % Normal 36.3-47.1 [facility] Comment on above: Performed By: #### L IP, CDP, CP #### [address] [place], [facility] Boat Person: Navjot Nelson MD Hemoglobin (Bld) [Mass/Vol] 14.8 g/dL Normal 11.9-15.1 [facility] Comment on above: Performed By: #### L IP, CDP, CP #### [address] [place] [phone] Boat Person: Navjot Nelson MD Immature granulocytes/100 WBC (Bld) 0 % Normal 0 [facility] Comment on above: Performed By: #### L IP, CDP, CP #### [address] [place] [address] Boat Person: Navjot Nelson MD Lymphocytes (Bld) [#/Vol] 1.67 10*3/uL Normal 1.10-3.70 [facility] Comment on above: Performed By: #### L IP, CDP, CP #### [address] [place] [address] Boat Person: Navjot Nelson MD Lymphocytes/100 WBC (Bld) 23 % Low 24-43 [facility] Comment on above: Performed By: #### L IP, CDP, CP #### [address] [place] [address] Boat Person: Navjot Nelson MD MCH (RBC) [Entitic mass] 30.4 pg Normal 25.2-33.5 [facility] Comment on above: Performed By: #### L IP, CDP, CP #### [address] [place] [address] Boat Person: Navjot Nelson MD MCHC (RBC) [Mass/Vol] 33.9 g/dL Normal 28.4-34.8 [place] Comment on above: Performed By: #### L IP, CDP, CP #### [address] [place] [phone] Boat Person: Navjot Nelson MD MCV (RBC) [Entitic vol] 89.7 fL Normal 82.6-102.9 [facility] Comment on above: Performed By: #### L IP, CDP, CP #### [address] [place], [facility]83 Boat Person: Navjot Nelson MD Monocytes (Bld) [#/Vol] 0.79 10*3/uL Normal 0.10-1.20 [facility] Comment on above: Performed By: #### L IP, CDP, CP #### [address] [place], [facility]83 Boat Person: Navjot Nelson MD Monocytes/100 WBC (Bld) 11 % Normal 3-12 [facility] Comment on above: Performed By: #### L IP, CDP, CP #### [facility] [address] [place], [place] [phone] Boat Person: Navjot Nelson MD Neutrophil (Seg) 64 % Normal 36-65 [facility] Comment on above: Performed By: #### L IP, CDP, CP #### [facility] [address] [place], [place] [phone] Boat Person: Navjot Nelson MD NRBC Automated 0.0 per 100 WBC Normal 0.0 [facility] Comment on above: Performed By: #### L IP, CDP, CP #### [address] [place], [facility]83 Boat Person: Navjot Nelson MD Platelet mean volume (Bld) [Entitic vol] 10.7 fL Normal 8.1-13.5 [facility] Comment on above: Performed By: #### L IP, CDP, CP #### [address] [place], [place] [phone] Boat Person: Navjot Nelson MD Platelets (Bld) [#/Vol] 191 10*3/uL Normal 138-453 [facility] Comment on above: Performed By: #### L IP, CDP, CP #### [address] [place], [place] [phone] Boat Person: Navjot Nelson MD RBC (Bld) [#/Vol] 4.87 10*6/uL Normal 3.95-5.11 [facility] Comment on above: Performed By: #### L IP, CDP, CP #### [address] [place], [place] [phone] Boat Person: Navjot Nelson MD WBC (Bld) [#/Vol] 7.3 10*3/uL Normal 3.5-11.3 [facility] Comment on above: Performed By: #### L ANNIE CHAPMAN, CP #### [facility] [address] [place] [address] Boat Person: Navjot Nelson MD Flu A/B Ag Detectionon 05-03 Flu A Ag Detection Negative Normal NEG [facility] Comment on above: Result Comment: for Influenza A Antigen Performed By: #### L ARI, ANNIE, CP #### [facility] [address] [place], [place] [id number] Boat Person: Navjot Nelson MD Flu B Ag Detection Negative Normal NEG [facility] Comment on above: Result Comment: for Influenza B Antigen. Performed By: #### L ANNIE CHAPMAN, CP #### [facility] [address] [place] [address] Boat Person: Navjot Nelson MD Laboratory - Chemistry and C hemistry - challengeon 05-03-2022 GFR/1.73 sq M.predicted MDRD (S/P/Bld) [Vol rate/Area] [facility] Comment on above: Average GFR for 20-2 9 years old: 116 mL/min/1.73sq m Chronic Kidney Disease: <60 mL/min/1.73sq m Kidney failure: <15 mL/min/1.73sq m eGFR calculated using average adult body mass. Additional eGFR calculator available at: http://www.[employer].PowerVision/multiple_crcl_2012.htm Stage 1: Some kidney damage normal GFR Stage 2: Mild kidney damage GFR 60-89 Stage 3: Moderate kidney damage GFR 30-59 Stage 4: Severe kidney damage GFR 15-29 Stage 5: Severe kidney damage GFR <15 ESRD - chronic treatment by dialysis or transplant Microscopic [facility] - [facility] Bacteria, UA TRACE Abnormal None [facility] Epithelial Cells UA 0 TO 2 [facility] goTenna Interpretation and review of laboratory results Abnormal [facility] RBC, UA 0 TO 2 [facility] WBC, UA 0 TO 2 [facility] Rapid influenza A/B antigens on 05-03-2022 Flu A Antigen Negative NEGATIVE [facility] Comment on above: for Influenza A Anti gen Flu B Antigen Negative NEGATIVE [facility] Comment on above: for Influenza B Anti gen. [facility] [id number] 05-03-2022 SARS-CoV-2 (COVID-19) RNA THALIA+probe Ql (Unsp spec) Not detected Normal [facility] Comment on above: Result Comment: Rapid NAAT: The specimen is NEGATIVE for SARS-CoV-2, the novel coronavirus associated with COVID-19. The ID NOW COVID-19 assay is designed to detect the virus that causes COVID-19 in patients with signs and symptoms of infection who are suspected of COVID-19. An individual without symptoms of COVID-19 and who is not shedding SARS-CoV-2 virus would expect to have a negative (not detected) result in this assay. Negative results should be treated as presumptive and, if inconsistent with clinical signs and symptoms or necessary for patient management, should be tested with an alternative molecular assay. Negative results do not preclude SARS-CoV-2 infection and should not be used as the sole basis for patient management decisions. Fact sheet for Healthcare Providers: https://www.fda.gov/media/326557/download Fact sheet for Patients: https://www.fda.gov/media/660683/download Methodology: Isothermal Nucleic Acid Amplification Performed By: #### L ARI, ANNIE, CP #### [address] [place] [address] Boat Person: Navjot Nelson MD SARS-CoV-2 NAAT (Rapid)on SARS-CoV-2 (COVID-19) RNA THALIA+probe Ql (Unsp spec) Not detected Not Detected [facility] Comment on above: Rapid NAAT: The specimen is NEGATIVE for SARS-CoV-2, the novel coronavirus associated with COVID-19. The ID NOW COVID-19 assay is designed to detect the virus that causes COVID-19 in patients with signs and symptoms of infection who are suspected of COVID-19. An individual without symptoms of COVID-19 and who is not shedding SARS-CoV-2 virus would expect to have a negative (not detected) result in this assay. Negative results should be treated as presumptive and, if inconsistent with clinical signs and symptoms or necessary for patient management, should be tested with an alternative molecular assay. Negative results do not preclude SARS-CoV-2 infection and should not be used as the sole basis for patient management decisions. Fact sheet for Healthcare Providers: https://www.fda.gov/media/977337/download Fact sheet for Patients: https://www.fda.gov/media/834099/download Methodology: Isothermal Nucleic Acid Amplification Specimen Description .NASOPHARYNGEAL SWAB [facility] Troponinon 05-03-2022 Troponin, High Sens <6 Normal 0-14 [facility] Comment on above: Result Comment: High Sensitivity Troponin values cannot be compared with other Troponin methodologies. Patients with high levels of Biotin oral intake (i.e >5mg/day) may have falsely decreased Troponin levels. Samples collected within 8 hours of biotin intake may require additional information for diagnosis. Performed By: #### L ANNIE CHAPMAN, CP #### [facility] [address] [place] [address] Boat Person: Navjot Nelson MD Troponin, High Sensitivity <6 0 - 14 ng/L [facility] Comment on above: High Sensitivity Troponin values cannot be compared with other Troponin methodologies. Patients with high levels of Biotin oral intake (i.e >5mg/day) may have falsely decreased Troponin levels. Samples collected within 8 hours of biotin intake may require additional information for diagnosis. [facility] UA w/Reflex Cultureon 2021 Bilirubin, SemiQt,Ur Negative Normal NEG [facility] Comment on above: Performed By: #### L ANNIE CHAPMAN, CP #### [facility] [address] [place] [address] Boat Person: Navjot Nelson MD Blood, Urine Negative Normal NEG [facility] Comment on above: Performed By: #### L ANNIE CHAPMAN, CP #### [facility] [address] [place], [place] [id number] Boat Person: Navjot Nelson MD Clarity (U) Clear Normal CLEAR [facility] Comment on above: Performed By: #### L IP, CDP, CP #### [address] [place], [place] [id number] Boat Person: Navjot Nelson MD Color (U) Yellow Normal YEL [facility] Comment on above: Performed By: #### L IP, CDP, CP #### [facility] [address] [place] [address] Dr. [place], [place] [id number] Boat Person: Navjot Nelson MD Glucose Ql (U) Negative Normal NEG [facility] Comment on above: Performed By: #### L IP, CDP, CP #### [address] [place], [place] [id number] Boat Person: Navjot Nelson MD Ketones Ql (U) Negative Normal NEG [facility] Comment on above: Performed By: #### L IP, CDP, CP #### [address] [place], [place] [phone] Boat Person: Navjot Nelson MD Leukocyte esterase Test strip Ql (U) Negative Normal NEG [facility] Comment on above: Performed By: #### L IP, CDP, CP #### [address] [place], [place] [id number] Boat Person: Navjot Nelson MD Nitrite,Ur Negative Normal NEG [facility] Comment on above: Performed By: #### L IP, CDP, CP #### [address] [place], [place] [id number] Boat Person: Navjot Nelson MD PH,Ur 7.0 Normal 5.0-9.0 [facility] Comment on above: Performed By: #### L IP, CDP, CP #### [address] [place] [phone] Boat Person: Navjot Nelson MD Protein Ql (U) Negative Normal NEG [facility] Comment on above: Performed By: #### L IP, CDP, CP #### [facility] [address] [place], [place] [id number] Boat Person: Navjot Nelson MD Spec. Sherman,Ur <1.005 Low 1.010-1.020 [facility] Comment on above: Performed By: #### L IP, CDP, CP #### [facility] [address] [place], [place] [phone] Boat Person: Navjot Nelson MD Urobilinogen,Ur Normal Normal NORM [facility] Comment on above: Performed By: #### L IP, CDP, CP #### [facility] [address] [place], [place] [phone] Boat Person: Navjot Nelson MD Urinalysis with Reflex to Cu ltureon 05-03-2022 Bilirubin Urine Negative NEGATIVE [facility] Color, UA Yellow Yellow [facility] Glucose, Ur Negative NEGATIVE [facility] Interpretation and review of laboratory results Abnormal [facility] Ketones Ql (U) Negative NEGATIVE [facility] Leukocyte esterase Test strip Ql (U) Negative NEGATIVE [facility] Nitrite, Urine Negative NEGATIVE [facility] pH, UA 7.0 [facility] Protein, UA Negative NEGATIVE [facility] Specific Sherman, UA <1.005 Low [facility] Turbidity UA Clear Clear [facility] Urine Hgb Negative NEGATIVE [facility] Urobilinogen, Urine Normal Normal [facility] Urinalysis,Microon 2 ----- Normal [facility] Comment on above: Performed By: #### L IP, CDP, CP #### [facility] [address] [place], [place] [phone] Boat Person: Navjot Nelson MD Bacteria TRACE Abnormal NONE [facility] Comment on above: Performed By: #### L IP, CDP, CP #### [facility] [address] [place] [address] Boat Person: Navjot Nelson MD Epithelial cells LM Ql (Urine sed) 0 TO 2 Normal 0-25 [facility] Comment on above: Performed By: #### L IP, CDP, CP #### [facility] [address] [place], [place] [phone] Boat Person: Navjot Nelson MD Urine RBC's 0 TO 2 Normal 0-2 [facility] Comment on above: Performed By: #### L IP CDP, CP #### [facility] [address] [place], [place] [phone] Boat Person: Navjot Nelson MD Urine WBC's 0 TO 2 Normal 0-5 [facility] Comment on above: Performed By: #### L IP, CDP, CP #### [facility] [address] [place] [address] Boat Person: Navjot Nelson MD XR CHEST PORTABLEon 05-03-20 XR CHEST PORTABLE EXAMINATION: ONE XRAY VIEW OF THE CHEST 05/03/2022 11:50 am COMPARISON: 08/04/2021 HISTORY: ORDERING SYSTEM PROVIDED HISTORY: cp TECHNOLOGIST PROVIDED HISTORY: cp FINDINGS: The cardiomediastinal silhouette is normal. No focal consolidation. The pulmonary vascularity is normal. There is no pleural effusion or pneumothorax. Osseous structures grossly intact. IMPRESSION: No acute process. Interpreted by: Presley Kirk MD Signed by: Presley Kirk MD 05/03/22 Final result Normal [facility] No acute process. [facility] RIS CONSOLIDATED EXAMINATION: ONE XRAY VIEW OF THE CHEST 05/03/2022 11:50 am COMPARISON: 08/04/2021 HISTORY: ORDERING SYSTEM PROVIDED HISTORY: cp TECHNOLOGIST PROVIDED HISTORY: cp FINDINGS: The cardiomediastinal silhouette is normal. No focal consolidation. The pulmonary vascularity is normal. There is no pleural effusion or pneumothorax. Osseous structures grossly intact. [facility] RIS CONSOLIDATED Presley Kirk MD - 05/03/2022 EXAMINATION: ONE XRAY VIEW OF THE CHEST 05/03/2022 11:50 am COMPARISON: 08/04/2021 HISTORY: ORDERING SYSTEM PROVIDED HISTORY: cp TECHNOLOGIST PROVIDED HISTORY: cp FINDINGS: The cardiomediastinal silhouette is normal. No focal consolidation. The pulmonary vascularity is normal. There is no pleural effusion or pneumothorax. Osseous structures grossly intact. IMPRESSION: No acute process. [facility] Smart Voicemail Phone: Radiology Study observation (narrative) SocialEars Phone: XR CHEST PORTABLEOrdered By: Presley Kirk on 05-03-2022 [facility] Smart Voicemail Phone: HCG,Qualitative Serumon 02-26 HCG,Qualitative Serum Negative Normal [facility] Comment on above: Result Comment: PERF ORMED BY: [place] [address] PATHOLOGIST PRINCIPAL CYBER ENGINEER ARSENIO OLEARY M.D. Performed By: #### H CGQUAL #### [address] [id number] 03-23-2022 SARS-CoV-2 (COVID-19) RNA THALIA+probe Ql (Unsp spec) Normal [facility] Comment on above: Performed By: #### C OVID #### [facility] Huan Xiong [address] [place] [id number] Boat Person: Murali Candelario MD [facility] [address] [place] [address] [address] [place] [id number] Boat Person: Navjot Nelson MD SARS-CoV-2 (COVID-19) RNA THALIA+probe Ql (Unsp spec) Not detected Normal [facility] Comment on above: Result Comment: The specimen is NEGATIVE for SARS-CoV-2, the novel coronavirus associated with COVID-19. A negative result does not rule out COVID-19. Trevon SARS-CoV-2 for use on the Trevon [employer] is a real-time RT-PCR test intended for the qualitative detection of nucleic acids from SARS-CoV-2 in clinician-collected nasal, nasopharyngeal, and oropharyngeal swab specimens from individuals who meet COVID-19 clinical and/or epidemiological criteria. Trevon SARS-CoV-2 is for use only under Emergency Use Authorization (EUA) in laboratories certified under Clinical Laboratory Improvement Amendments of 1988 (CLIA), 42 U.S.C. ?263a, that meet requirements to perform high or moderate complexity tests. An individual without symptoms of COVID-19 and who is not shedding SARS-CoV-2 virus would expect to have a negative (not detected) result in this assay. Fact sheet for Healthcare Providers: https://www.fda.gov/media/680194/download Fact sheet for Patients: https://www.fda.gov/media/684292/download METHODOLOGY: RT-PCR Performed By: #### C OVID #### [address] [id number] Boat Person: Murali Candelario MD [address] [place] [address] Boat Person: Navjot Nelson MD [id number] 03-22-2022 SARS-CoV-2 (COVID-19) RNA THALIA+probe Ql (Unsp spec) .NASOPHARYNGEAL SWAB Normal [facility] Comment on above: Performed By: #### C OVID #### [address] [id number] Boat Person: Murali Candelario MD [address] [place] [address] Boat Person: Navjot Nelson MD [id number] 03-09-2022 SARS-CoV-2 (COVID-19) RNA THALIA+probe Ql (Unsp spec) Normal [facility] Comment on above: Performed By: #### L IP, CDP, CP #### [address] [place] [address] Boat Person: Navjot Nelson MD SARS-CoV-2 (COVID-19) RNA THALIA+probe Ql (Unsp spec) Not detected Normal [facility] Comment on above: Result Comment: The specimen is NEGATIVE for SARS-CoV-2, the novel coronavirus associated with COVID-19. A negative result does not rule out COVID-19. Trevon SARS-CoV-2 for use on the [employer] is a real-time RT-PCR test intended for the qualitative detection of nucleic acids from SARS-CoV-2 in clinician-collected nasal, nasopharyngeal, and oropharyngeal swab specimens from individuals who meet COVID-19 clinical and/or epidemiological criteria. Trevon SARS-CoV-2 is for use only under Emergency Use Authorization (EUA) in laboratories certified under Clinical Laboratory Improvement Amendments of 1988 (CLIA), 42 U.S.C. ?263a, that meet requirements to perform high or moderate complexity tests. An individual without symptoms of COVID-19 and who is not shedding SARS-CoV-2 virus would expect to have a negative (not detected) result in this assay. Fact sheet for Healthcare Providers: https://www.fda.gov/media/749936/download Fact sheet for Patients: https://www.fda.gov/media/270198/download METHODOLOGY: RT-PCR Performed By: #### L ANNIE CHAPMAN, CP #### [address] [place] [address] Boat Person: Navjot Nelson MD [id number] 03-08-2022 SARS-CoV-2 (COVID-19) RNA THALIA+probe Ql (Unsp spec) .NASOPHARYNGEAL SWAB Normal [facility] Comment on above: Performed By: #### L ANNIE CHAPMAN, CP #### [facility] [address] [place] [address] Boat Person: Navjot Nelson MD CT ABD/PELV W CONon 12-05-19 CT ABD/PELV W CON EXAMINATION: CT ABD/PELV W CON HISTORY: DIARRHEA, UNSPECIFIED bilateral abdominal pain, nausea. COMPARISON: CT abdomen and pelvis 05/14/2014 TECHNIQUE: Multiple axial views CT abdomen and pelvis after administration of 100 mL Omnipaque 300 IV contrast. Coronal and sagittal reformats. Dose reduction techniques were achieved by using automated exposure control and/or adjustment of mA and/or kV according to patient size and/or use of iterative reconstruction technique. FINDINGS: Visualized lung bases and cardiac apex unremarkable. Pectus excavatum with contouring of the right ventricular wall anteriorly, partially seen. 6 mm hypodense focus right hepatic lobe probably cyst or hemangioma. Gallbladder, spleen, pancreas, adrenal glands, kidneys, urinary bladder, uterus are unremarkable. Mild fluid within the endometrial canal and pelvic free fluid. 25 mm right ovarian complicated cystic structure could reflect luteal or hemorrhagic cyst. Diffuse cecal wall enhancement and slight thickening with mild surrounding fluid reflect underlying inflammation or infection. Focal left transverse colonic wall thickening could reflect additional wall inflammation. Moderate amount stool throughout the large bowel to rectum. 6.5 mm borderline prominent appendix with surrounding trace fluid/inflammatory stranding and mucosal wall thickening from the base to the tip could reflect appendiceal inflammation. No evidence for small bowel obstruction or free air. No acute bony abnormality. IMPRESSION: Diffuse cecal wall enhancement and slight thickening with mild surrounding fluid reflect underlying inflammation or infection. Focal left transverse colonic wall thickening could reflect additional wall inflammation. Moderate amount stool throughout the large bowel to rectum. 6.5 mm borderline prominent appendix with surrounding trace fluid/inflammatory stranding and mucosal wall thickening from the base to the tip could reflect appendiceal inflammation. No perforation or abscess. Correlate clinically for focal right lower quadrant abdominal pain. 25 mm right ovarian complicated cystic structure could reflect luteal or hemorrhagic cyst. If there is pelvic etiology of pain, pelvic sonogram can further evaluate. Electronically authenticated by: NELY ARITA Date: 2021-12-04 22:06 Normal [facility] AMYLASEon 12-04-2021 Amylase [Catalytic activity/Vol] 50 U/L Normal 31-110 [facility] Comment on above: Performed By: #### C MP, ROBIN, LIPA #### [facility] [address] [address] [address] Balta Parson CBC AUTO DIFFon 12-04-2021 BASO # 0.1 103/ul Normal 0.0-0.1 [facility] Comment on above: Performed By: #### C BC #### [facility] [address] [place] [address] Dr. Balta Parson Basophils/100 WBC (Bld) 0.8 % Normal 0.2-2.0 [facility] Comment on above: Performed By: #### C BC #### [facility] [address] [place] [address] Dr. Balta Parson EO # 0.4 103/ul Normal 0.0-0.7 [facility] Comment on above: Performed By: #### C BC #### [facility] [address] [place] [address] Dr. Balta Parson Eosinophils/100 WBC (Bld) 3.2 % Normal 0.9-7.0 [facility] Comment on above: Performed By: #### C BC #### [facility] [address] [place] [address] Dr. Balta Parson Erythrocyte distribution width (RBC) [Ratio] 12.8 % Normal 11.0-15.0 [facility] Comment on above: Performed By: #### C BC #### [facility] [address] [place] [address] Dr. Balta Parson Hematocrit (Bld) [Volume fraction] 42.0 % Normal 36.0-48.0 [facility] Comment on above: Performed By: #### C BC #### [facility] [address] [place] [address] Dr. Balta Parson Hemoglobin (Bld) [Mass/Vol] 13.9 g/dL Normal 12.0-16.0 [facility] Comment on above: Performed By: #### C BC #### [facility] [address] [place] [address] Dr. Balta Parson IG # 0.05 10e3/ul Critically high 0.00-0.03 [facility] Comment on above: Performed By: #### C BC #### [facility] [address] [place] [address] Dr. Balta Parson IG % 0.4 % Normal 0.0-0.5 [facility] Comment on above: Performed By: #### C BC #### [facility] [address] [address] [address] Balta Parson LYMPH # 3.9 103/ul Critically high 1.2-3.8 [facility] Comment on above: Performed By: #### C BC #### [facility] [address] [address] [address] Balta Parson Lymphocytes/100 WBC (Bld) 30.4 % Normal 20.5-60.0 [facility] Comment on above: Performed By: #### C BC #### [facility] [address] [place] [address] Dr. Balta Parson MANUAL DIFF REQ NO Normal [facility] Comment on above: Performed By: #### C BC #### [facility] [address] [place] [address] Dr. Balta Parson MCH (RBC) [Entitic mass] 30.5 pg Normal 26.7-34.0 [facility] Comment on above: Performed By: #### C BC #### [facility] [address] [place] [address] Dr. Balta Parson MCHC (RBC) [Mass/Vol] 33.1 g/dL Normal 29.9-35.2 [facility] Comment on above: Performed By: #### C BC #### [facility] [address] [place] [address] Dr. Balta Parosn MCV (RBC) [Entitic vol] 92.3 fL Normal 81.0-99.0 [facility] Comment on above: Performed By: #### C BC #### [facility] [address] [place] [address] Dr. Balta Parson MONO # 0.8 103/ul Normal 0.3-0.8 [facility] Comment on above: Performed By: #### C BC #### [facility] [address] [place] [address] Dr. Balta Parson Monocytes/100 WBC (Bld) 6.6 % Normal 1.7-12.0 [facility] Comment on above: Performed By: #### C BC #### [facility] [address] [place] [address] Dr. Balta Parson NEUT # 7.5 103/ul Critically high 1.4-6.5 [facility] Comment on above: Performed By: #### C BC #### [facility] [address] [place] [address] Dr. Balta Parson Neutrophils/100 WBC (Bld) 58.6 % Normal 43.0-75.0 [facility] Comment on above: Performed By: #### C BC #### [facility] [address] [place] [address] Dr. Balta Parson Platelet mean volume (Bld) [Entitic vol] 10.5 fL Normal 9.5-13.5 [facility] Comment on above: Performed By: #### C BC #### [facility] [address] [place] [address] Dr. Balta Parson PLT 230 103/ul Normal 150-450 [facility] Comment on above: Performed By: #### C BC #### [facility] [address] [place] [address] Dr. Balta Parson RBC 4.55 106/ul Normal 4.20-5.40 [facility] Comment on above: Performed By: #### C BC #### [facility] [address] [place] [address] Dr. Balta Parson WBC 12.8 103/ul Critically high 4.0-11.0 [facility] Comment on above: Performed By: #### C BC #### [facility] [address] [place] [address] Dr. Balta Parson ER URINE PROFILEon 2 Bilirubin Ql (U) Negative Normal NEGATIVE [facility] Comment on above: Performed By: #### E RUR #### [facility] [address] [place] [address] Dr. Balta Parson Clarity (U) CLEAR Normal CLEAR [facility] Comment on above: Performed By: #### E RUR #### [facility] [address] [place] [address] Dr. Balta Parson Color (U) LT. YELLOW Normal YELLOW [facility] Comment on above: Performed By: #### E RUR #### [facility] [address] [address] [address] Balta FLOYD A micrscopic examination will be performed if indicated. Normal [facility] Comment on above: Performed By: #### E RUR #### [facility] [address] [place] [id number] Dr. Balta Parson Glucose Ql (U) Negative Normal NEGATIVE [facility] Comment on above: Performed By: #### E RUR #### [facility] [address] [place] [address] Dr. Balta Parson Hemoglobin Ql (U) Negative Normal NEGATIVE [facility] Comment on above: Performed By: #### E RUR #### [facility] [address] [place] [address] Dr. Balta Parson Ketones Ql (U) Negative Normal NEGATIVE [facility] Comment on above: Performed By: #### E RUR #### [facility] [address] [place] [address] Dr. Balta Parson LEUKOCYTES Negative Normal NEGATIVE [facility] Comment on above: Performed By: #### E RUR #### [facility] [address] [place] [address] Dr. Balta Parson Nitrite Ql (U) Negative Normal NEGATIVE [facility] Comment on above: Performed By: #### E RUR #### [facility] [address] [place] [address] Dr. Balta Parson pH (U) 7.0 [pH] Normal 5-9 [facility] Comment on above: Performed By: #### E RUR #### [facility] [address] [place] [address] Dr. Balta Parson SPEC GRAVITY 1.010 Normal 1.005-<=1.02 5 [facility] Comment on above: Performed By: #### E RUR #### [facility] [address] [place] [address] Dr. Balta Parson UA PROTEIN Negative Normal NEGATIVE/ TRACE [facility] Comment on above: Performed By: #### E RUR #### [facility] [address] [place] [address] Dr. Balta Parson UR MICRO IND NOT INDICATED Normal [facility] Comment on above: Performed By: #### E RUR #### [facility] [address] [place] [address] Dr. Balta Parson Urobilinogen Qn (U) 0.2 {Indira'U}/dL Normal 0.2 - 1. 0 [facility] Comment on above: Performed By: #### E RUR #### [facility] [address] [place] [address] Dr. Balta Parson LIPASEon 12-04-2021 Lipase [Catalytic activity/Vol] 124.0 U/L Normal 23.0-300.0 [facility] Comment on above: Performed By: #### C MP ROBIN, LIPA #### [facility] [address] [place] [address] Dr. Balta Parson PREG HCG QUALon 12-04-2021 , QUAL Negative Normal NEGATIVE [facility] Comment on above: Performed By: #### P REG #### [facility] [address] [place] [address] Dr. Balta Parson PROF 14(COMP METB)on 022 Albumin [Mass/Vol] 3.9 g/dL Normal 3.5-5.0 [facility] Comment on above: Performed By: #### C MP ROBIN, LIPA #### [facility] [address] [place] [address] Dr. Balta Parson Albumin/Globulin [Mass ratio] 1.0 {ratio} Normal [facility] Comment on above: Performed By: #### C MP, ROBIN, LIPA #### [facility] [address] [place] [address] Dr. Balta Parson ALP [Catalytic activity/Vol] 90 U/L Normal 38-126 [facility] Comment on above: Performed By: #### C MP, ROBIN, LIPA #### [facility] [address] [place] [address] Dr. Balta Parson ALT [Catalytic activity/Vol] 25 U/L Normal 9-52 [facility] Comment on above: Performed By: #### C ROBIN ALFORD LIPA #### [facility] [address] [place] [address] Dr. Balta Parson Anion gap [Moles/Vol] 10.7 mmol/L Normal Th e [facility] Comment on above: Performed By: #### C ROBIN ALFORD LIPA #### [facility] [address] [place] [address] Dr. Balta Parson AST [Catalytic activity/Vol] 12 U/L Critically low 14-36 [facility] Comment on above: Performed By: #### C ROBIN ALFORD LIPA #### [facility] [address] [place] [address] Dr. Balta Parson Bilirubin [Mass/Vol] 0.3 mg/dL Normal 0.2-1.3 [facility] Comment on above: Performed By: #### C ROBIN ALFORD LIPA #### [facility] [address] [place] [address] Dr. Balta Parson Calcium [Mass/Vol] 8.9 mg/dL Normal 8.4-10.2 [facility] Comment on above: Performed By: #### C ROBIN ALFORD LIPA #### [facility] [address] [place] [address] Dr. Balta Parson Chloride [Moles/Vol] 102 mmol/L Normal 98-107 [facility] Comment on above: Performed By: #### C ROBIN ALFORD LIPA #### [facility] [address] [place] [address] Dr. Balta Parson CO2 [Moles/Vol] 28.4 mmol/L Normal 22.0-30.0 [facility] Comment on above: Performed By: #### C ROBIN ALFORD LIPA #### [facility] [address] [place] [address] Dr. Balta Parson Creatinine [Mass/Vol] 0.77 mg/dL Normal 0.52-1.04 [facility] Comment on above: Performed By: #### C MP, ROBIN, LIPA #### [facility] [address] [address] [address] Balta Parson EGFR-AF CZECH >60 Normal >=60 [facility] Comment on above: Performed By: #### C ROBIN ALFORD, LIPA #### [facility] [address] [address] [address] Balta Parson EGFR-NON AF CZECH >60 Normal >=60 [facility] Comment on above: Performed By: #### C ROBIN ALFORD, LIPA #### [facility] [address] [address] [address] Balta Parson Globulin (S) [Mass/Vol] 3.8 g/dL Normal [facility] Comment on above: Performed By: #### C ROBIN ALFORD, LIPA #### [facility] [address] [address] [address] Balta Parson Glucose [Mass/Vol] 93 mg/dL Normal 74-[address] [facility] Comment on above: Performed By: #### C ROBIN ALFORD, LIPA #### [facility] [address] [address] [address] Balta Parson Potassium [Moles/Vol] 4.1 mmol/L Normal 3.4-5.0 [facility] Comment on above: Performed By: #### C ROBIN ALFORD, LIPA #### [facility] [address] [address] [address] Balta Parson Protein [Mass/Vol] 7.7 g/dL Normal 6.1-8.[address] [facility] Comment on above: Performed By: #### C ROBIN ALFORD, LIPA #### [facility] [address] [address] [address] Balta Parson Sodium [Moles/Vol] 137 mmol/L Normal 137-[address] [facility] Comment on above: Performed By: #### C ROBIN ALFORD, LIPA #### [facility] [address] [address] [address] Balta Parson Urea nitrogen [Mass/Vol] 14.0 mg/dL Normal 7.0-17.0 [facility] Comment on above: Performed By: #### C ROBIN ALFORD LIPA #### [facility] [address] [place], [place] [address] Dr. Balta Parson Urea nitrogen/Creatinine [Mass ratio] 18.2 mg/mg Normal [facility] Comment on above: Performed By: #### C ROBIN ALFORD LIPA #### [facility] [id number] Balta Parson Basic Metabolic PanelOrdered By: Naresh Anaya on 08-04-2021 Anion gap [Moles/Vol] 10 mmol/L 9 - 17 mmol/L [employer] Phone: Calcium [Mass/Vol] 9.0 mg/dL 8.6 - 10. 4 mg/dL [employer] Phone: Chloride [Moles/Vol] 106 mmol/L 98 - 10 7 mmol/L [employer] Phone: CO2 [Moles/Vol] 23 mmol/L 20 - 31 mmol/L [employer] Phone: Creatinine [Mass/Vol] 0.67 mg/dL 0.50 - 0.90 mg/dL [employer] Phone: GFR >60 >60 mL/min [employer] Phone: GFR Non- >60 >60 mL/min [employer] Phone: Glucose [Mass/Vol] 76 mg/dL 70 - 99 mg/dL [employer] Phone: Potassium [Moles/Vol] 3.8 mmol/L 3.7 - 5.3 mmol/L [employer] Phone: Sodium [Moles/Vol] 139 mmol/L 135 - 144 mmol/L [employer] Phone: Urea nitrogen (BldV) [Mass/Vol] 10 mg/dL 6 - 20 mg/dL [employer] Phone: Urea nitrogen/Creatinine (Bld) [Mass ratio] 15 [employer] Work Phone: [employer] Work Phone: CBC Auto DifferentialOrdered By: Naresh Anaya on 08-04-2021 [employer]os # 0.16 [employer] [facility] Work Phone: Absolute Immature Granulocyte <0.03 [employer] Work Phone: Absolute Lymph # 2.57 [employer] [facility] Work Phone: Absolute Potter # 0.63 [employer] [facility] Work Phone: Basophils (Bld) [#/Vol] 0.05 10*3/uL [employer] Work Phone: Basophils/100 WBC (Bld) 1 % 0 - 2 % [employer] Phone: Differential Type NOT REPORTED [employer] Phone: Eosinophils/100 WBC (Bld) 2 % 1 - 4 % [employer] Phone: Hematocrit (Bld) [Volume fraction] 42.4 % 36.3 - 47.1 % [employer] Phone: Hemoglobin.gastrointes tinal spec 1 Ql (Stl) 14.2 g/dL 11.9 - 15.1 g/dL [employer] Phone: Immature granulocytes/100 WBC (Bld) 0 % 0 [employer] Phone: Lymphocytes/100 WBC (Bld) 37 % 24 - 43 % [employer] Phone: MCH (RBC) [Entitic mass] 30.3 pg 25.2 - 33.5 pg [employer] Phone: MCHC (RBC) [Mass/Vol] 33.5 g/dL 28.4 - 34.8 g/dL [employer] Phone: MCV (RBC) [Entitic vol] 90.6 fL 82.6 - 102.9 fL [employer] Work Phone: Monocytes/100 WBC (Bld) 9 % 3 - 12 % [employer] Phone: NRBC Automated 0.0 0.0 per 100 WBC [employer] Phone: Platelet distribution width (Bld) [Ratio] 12.0 % 11.8 - 14.4 % [employer] Phone: Platelet Estimate NOT REPORTED [employer] Phone: Platelet mean volume (Bld) [Entitic vol] 10.6 fL 8.1 - 13.5 fL [employer] Phone: Platelets (Bld) [#/Vol] 195 10*3/uL [employer] Phone: RBC (Bld) [#/Vol] 4.68 10*6/uL 3.95 - 5.1 1 m/uL [employer] Work Phone: RBC (Bld) [#/Vol] NOT REPORTED [employer] Phone: Segmented neutrophils/100 WBC (Bld) 51 % 36 - 65 % [employer] Phone: Segs Absolute 3.51 [employer] Work Phone: WBC (Bld) [#/Vol] 6.9 10*3/uL [employer] Work Phone: WBC (Bld) [#/Vol] NOT REPORTED [employer] Phone: [employer] Phone: D-Dimer, QuantitativeOrdered By: Naresh Anaya on 08-04-2021 D-Dimer, Quant 0.27 [employer] Work Phone: Comment on above: When combined with a low clinical probability, a D dimer value of <0.50 mg/L FEU is considered negative for DVT and PE (negative predictive value of 98%, sensitivity of 97%). If this test is not being used to help rule out DVT and PE, then the following reference range should be utilized: 0.00 - 0.59 mg/L FEU. The D-Dimer assay is intended for use as an aid in the diagnosis of venous thromboembolism (DVT and PE) and the results should be interpreted in conjunction with the patient's medical history, clinical presentation, and other findings. Elevated levels of D-dimer activity can be seen in any state of coagulation activation and is not recommended in patients with therapeutic dose anticoagulant therapy for >24 hours, fibrinolytic therapy within the previous 7 days, trauma or surgery within the previous 4 weeks, disseminated malignancies, aortic aneurysm, sepsis, severe infections, pneumonia, severe skin infections, liver cirrhosis, advanced age, coronary disease, diabetes, and . A very low percentage of patients with DVT may yield D-dimer results below the cutoff of 0.5 mg/L FEU. This is known to be more prevalent in patients with distal DVT. [employer] Phone: HCG Qualitative, SerumOrdere d By: Jose Antonio Quijano on 08-04-2021 hCG Qual Negative NEGATIVE [employer] Phone: Comment on above: Specimens with hCG l evels near the threshold of the test (25 mIU/mL) may give a negative or indeterminate result. In such cases, another test should be performed with a new specimen in 48-72 hours. If early is suspected clinically in this setting, correlation with quantitative serum b-hCG level is suggested. [employer] has confirmed the use of plasma for this test. This has not been cleared or approved by the U.S. Food and Drug Administration. The FDA has determined that such clearance is not necessary. [employer] Phone: Hepatic Function PanelOrdere d By: Jose Antonio Quijano on 08-04-2021 Albumin [Mass/Vol] 4.3 g/dL 3.5 - 5.2 g/dL [employer] Phone: Albumin/Globulin [Mass ratio] 1.4 {ratio} [employer] Phone: ALP (Bld) [Catalytic activity/Vol] 89 U/L 35 - 104 U/L [employer] Phone: ALT [Catalytic activity/Vol] 13 U/L 5 - 33 U/L [employer] Phone: AST [Catalytic activity/Vol] 15 U/L <32 [employer] Phone: Bilirubin [Mass/Vol] 0.41 mg/dL 0.3 - 1 .2 mg/dL [employer] Phone: Bilirubin, Indirect CANNOT BE CALCULATED 0.00 - 1.00 mg/dL [employer] Phone: Bilirubin.indirect [Mass/Vol] mg/dL <0.31 mg/dL [employer] Phone: Free PSA/Total PSA [Mass fraction] 7.4 g/dL 6.4 - 8.3 g/dL [employer] Phone: Globulin NOT REPORTED 1.5 - 3.8 g/dL [employer] Phone: Laboratory - Chemistry and C hemistry - challengeOrdered By: Naresh Anaya on 08-04-2021 GFR/1.73 sq M.predicted MDRD (S/P/Bld) [Vol rate/Area] [employer] Phone: Comment on above: Average GFR for 20-2 9 years old: 116 mL/min/1.73sq m Chronic Kidney Disease: <60 mL/min/1.73sq m Kidney failure: <15 mL/min/1.73sq m eGFR calculated using average adult body mass. Additional eGFR calculator available at: http://www.[employer].PowerVision/multiple_crcl_2012.htm Stage 1: Some kidney damage normal GFR Stage 2: Mild kidney damage GFR 60-89 Stage 3: Moderate kidney damage GFR 30-59 Stage 4: Severe kidney damage GFR 15-29 Stage 5: Severe kidney damage GFR <15 ESRD - chronic treatment by dialysis or transplant LipaseOrdered By: Marv on 08-04-2021 Lipase [Catalytic activity/Vol] 43 U/L 13 - 60 U/L [employer] Phone: No Panel InformationOrdered By: Jose Antonioava Quijano on 08-04-2021 [employer] Phone: SPECIMEN REJECTIONOrdered By : Jose Antonio Cooliss on 08-04-2021 - NOT REPORTED [employer] Phone: Ordered Test DIME [employer] Phone: Reason for Rejection Unable to perform testing: Specimen quantity not sufficient. [employer] Phone: Specimen source Nom (Unsp spec) .BLOOD [employer] Phone: [employer] Phone: TSH with ReflexOrdered By: Leslie delcid Samm on 08-04-2021 Interpretation and review of laboratory results Abnormal [employer] Phone: TSH Qn 0.09 m[IU]/L Low [employer] Phone: [employer] Phone: TroponinOrdered By: Naresh Clements ches on 08-04-2021 Troponin Interp NOT REPORTED [employer] Work Phone: Troponin T NOT REPORTED <0.03 ng/mL [employer] Work Phone: Troponin, High Sensitivity <6 0 - 14 ng/L [employer] Phone: Comment on above: High Sensitivity Troponin values cannot be compared with other Troponin methodologies. Patients with high levels of Biotin oral intake (i.e >5mg/day) may have falsely decreased Troponin levels. Samples collected within 8 hours of biotin intake may require additional information for diagnosis. [employer] Phone: XR CHEST PORTABLEOrdered By: Naresh Anaya on 08-04-2021 No acute process. [employer] Work Phone: EXAMINATION: ONE XRAY VIEW OF THE CHEST 08/04/2021 11:44 am COMPARISON: January 04, 2016 HISTORY: ORDERING SYSTEM PROVIDED HISTORY: CP TECHNOLOGIST PROVIDED HISTORY: CP FINDINGS: The lungs are without acute focal process. There is no effusion or pneumothorax. The cardiomediastinal silhouette is without acute process. The osseous structures are without acute process. [employer] Phone: Yuan, [facility] Incoming Radiant Results From [employer] - 08/04/2021 11:56 AM EDT EXAMINATION: ONE XRAY VIEW OF THE CHEST 08/04/2021 11:44 am COMPARISON: January 04, 2016 HISTORY: ORDERING SYSTEM PROVIDED HISTORY: CP TECHNOLOGIST PROVIDED HISTORY: CP FINDINGS: The lungs are without acute focal process. There is no effusion or pneumothorax. The cardiomediastinal silhouette is without acute process. The osseous structures are without acute process. IMPRESSION: No acute process. [employer] Phone: [employer] Phone: XR LUMBAR SPINE (2-3 VIEWS)O rdered By: Jose Antonio Quijano on 08-04-2021 Unremarkable examination of the lumbar spine. [employer] Phone: EXAMINATION: THREE XRAY VIEWS OF THE LUMBAR SPINE 08/04/2021 9:23 am COMPARISON: None. HISTORY: ORDERING SYSTEM PROVIDED HISTORY: low back pain TECHNOLOGIST PROVIDED HISTORY: low back pain FINDINGS: Lumbar vertebral bodies are normal in height and alignment. No evidence of fracture. Visualized sacrum is unremarkable. No significant degenerative changes. [employer] Phone: Yuan, [facility] Incoming Radiant Results From [employer] - 08/04/2021 12:32 PM EDT EXAMINATION: THREE XRAY VIEWS OF THE LUMBAR SPINE 08/04/2021 9:23 am COMPARISON: None. HISTORY: ORDERING SYSTEM PROVIDED HISTORY: low back pain TECHNOLOGIST PROVIDED HISTORY: low back pain FINDINGS: Lumbar vertebral bodies are normal in height and alignment. No evidence of fracture. Visualized sacrum is unremarkable. No significant degenerative changes. IMPRESSION: Unremarkable examination of the lumbar spine. [employer] Phone: [employer] Phone: XR SPINE CERVICAL 2 VIEWSon 02-18-2021 XR SPINE CERVICAL 2 VIEWS EXAM: XR SPINE CERVICAL 2 VIEWS HISTORY: Lumbar radiculopathy. COMPARISON: CT soft tissue neck from 01/14/2014. TECHNIQUE: 3 views performed. FINDINGS: The bone mineralization is normal. There is no acute fracture or subluxation. The vertebral body and disc heights are maintained. Prevertebral soft tissues are unremarkable. Open-mouth view shows the visualized portion of C1 and C2 to be grossly intact. There is no destructive osseous lesion. IMPRESSION: No acute osseous abnormality. Normal [facility] IMPRESSION: No acute osseous abnormality. [facility] EXAM: XR SPINE CERVICAL 2 VIEWS HISTORY: Lumbar radiculopathy. COMPARISON: CT soft tissue neck from 01/14/2014. TECHNIQUE: 3 views performed. FINDINGS: The bone mineralization is normal. There is no acute fracture or subluxation. The vertebral body and disc heights are maintained. Prevertebral soft tissues are unremarkable. Open-mouth view shows the visualized portion of C1 and C2 to be grossly intact. There is no destructive osseous lesion. [facility] User, Interfaces - 02/18/2021 3:27 PM EDT EXAM: XR SPINE CERVICAL 2 VIEWS HISTORY: Lumbar radiculopathy. COMPARISON: CT soft tissue neck from 01/14/2014. TECHNIQUE: 3 views performed. FINDINGS: The bone mineralization is normal. There is no acute fracture or subluxation. The vertebral body and disc heights are maintained. Prevertebral soft tissues are unremarkable. Open-mouth view shows the visualized portion of C1 and C2 to be grossly intact. There is no destructive osseous lesion. IMPRESSION IMPRESSION: No acute osseous abnormality. [facility] XR SPINE LUMBOSACRAL 5 VIEWS on 02-18-2021 XR SPINE LUMBOSACRAL 5 VIEWS EXAM: XR SPINE LUMBOSACRAL 5 VIEWS HISTORY: Lumbar radiculopathy COMPARISON: CT of the abdomen and pelvis from 05/14/2014. TECHNIQUE: Four views submitted. FINDINGS: Bone mineralization is normal. There are 5 nonrib-bearing lumbar vertebral bodies. There is no acute fracture or subluxation. There is mild disc space narrowing at L5-S1. Vertebral body heights are maintained. There is no destructive osseous lesion. Oblique views demonstrate the facet joints to be grossly intact. Paravertebral soft tissues are unremarkable. IMPRESSION: No acute osseous abnormality Mild disc space narrowing at L5-S1. Normal [facility] IMPRESSION: No acute osseous abnormality Mild disc space narrowing at L5-S1. [facility] EXAM: XR SPINE LUMBOSACRAL 5 VIEWS HISTORY: Lumbar radiculopathy COMPARISON: CT of the abdomen and pelvis from 05/14/2014. TECHNIQUE: Four views submitted. FINDINGS: Bone mineralization is normal. There are 5 nonrib-bearing lumbar vertebral bodies. There is no acute fracture or subluxation. There is mild disc space narrowing at L5-S1. Vertebral body heights are maintained. There is no destructive osseous lesion. Oblique views demonstrate the facet joints to be grossly intact. Paravertebral soft tissues are unremarkable. [facility] User, Interfaces - 02/18/2021 3:27 PM EDT EXAM: XR SPINE LUMBOSACRAL 5 VIEWS HISTORY: Lumbar radiculopathy COMPARISON: CT of the abdomen and pelvis from 05/14/2014. TECHNIQUE: Four views submitted. FINDINGS: Bone mineralization is normal. There are 5 nonrib-bearing lumbar vertebral bodies. There is no acute fracture or subluxation. There is mild disc space narrowing at L5-S1. Vertebral body heights are maintained. There is no destructive osseous lesion. Oblique views demonstrate the facet joints to be grossly intact. Paravertebral soft tissues are unremarkable. IMPRESSION IMPRESSION: No acute osseous abnormality Mild disc space narrowing at L5-S1. [facility] , Urineon 1 Beta HCG ( test) Ql (U) Negative NEGATIVE [place], [place] Comment on above: Specimens with hCG l evels near the threshold of the test (25 mIU/mL) may give a negative or indeterminate result. In such cases, another test should be performed with a new specimen in 48-72 hours. If early is suspected clinically in this setting, correlation with quantitative serum b-hCG level is suggested. [employer] has confirmed the use of plasma for this test. This has not been cleared or approved by the U.S. Food and Drug Administration. The FDA has determined that such clearance is not necessary. COVID-19on 11-24-2020 SARS-CoV-2 [place], [place] SARS-CoV-2 Not Detected Not Detected [place], [place] Comment on above: The specimen is NEGATIVE for SARS-CoV-2, the novel coronavirus associated with COVID-19. A negative result does not rule out COVID-19. [employer]von SARS-CoV-2 for use on the [employer] 6800/8800 Systems is a real-time RT-PCR test intended for the qualitative detection of nucleic acids from SARS-CoV-2 in clinician-collected nasal, nasopharyngeal, and oropharyngeal swab specimens from individuals who meet COVID-19 clinical and/or epidemiological criteria. [employer] SARS-CoV-2 is for use only under Emergency Use Authorization (EUA) in laboratories certified under Clinical Laboratory Improvement Amendments of 1988 (CLIA), 42 U.S.C. 263a, that meet requirements to perform high or moderate complexity tests. An individual without symptoms of COVID-19 and who is not shedding SARS-CoV-2 virus would expect to have a negative (not detected) result in this assay. Fact sheet for Healthcare Providers: https://www.fda.gov/media/529358/download Fact sheet for Patients: https://www.fda.gov/media/563768/download METHODOLOGY: RT-PCR SARS-CoV-2, [place], [place] Source .NASOPHARYNGEAL SWAB [place], [place] US NON OB TRANSVAGINALon Negative pelvic ultrasound. [place], [place] EXAMINATION: PELVIC ULTRASOUND 09/01/2020 TECHNIQUE: Transvaginal pelvic ultrasound was performed. No color Doppler evaluation was performed. COMPARISON: None HISTORY: ORDERING SYSTEM PROVIDED HISTORY: Pelvic pain FINDINGS: Measurements: Uterus: 7.7 x 5.5 x 4.2 cm Endometrial stripe: 3 mm Right Ovary: 5.9 x 2.1 x 2.1 cm Left Ovary: 4.1 x 3.0 x 2.0 cm Ultrasound Findings: Uterus: Uterus is retroverted demonstrates normal myometrial echotexture. Endometrial stripe: Endometrial stripe is normal thickness. IUD is in place. Right Ovary: Right ovary is within normal limits. Left Ovary: Left ovary is within normal limits. Free Fluid: Small amount of free fluid cul-de-sac likely physiologic in nature. [place], [place] Yuan, Mh[employer] Incoming Radiant Results From [employer] - 09/01/2020 1:11 PM EDT EXAMINATION: PELVIC ULTRASOUND 09/01/2020 TECHNIQUE: Transvaginal pelvic ultrasound was performed. No color Doppler evaluation was performed. COMPARISON: None HISTORY: ORDERING SYSTEM PROVIDED HISTORY: Pelvic pain FINDINGS: Measurements: Uterus: 7.7 x 5.5 x 4.2 cm Endometrial stripe: 3 mm Right Ovary: 5.9 x 2.1 x 2.1 cm Left Ovary: 4.1 x 3.0 x 2.0 cm Ultrasound Findings: Uterus: Uterus is retroverted demonstrates normal myometrial echotexture. Endometrial stripe: Endometrial stripe is normal thickness. IUD is in place. Right Ovary: Right ovary is within normal limits. Left Ovary: Left ovary is within normal limits. Free Fluid: Small amount of free fluid cul-de-sac likely physiologic in nature. IMPRESSION: Negative pelvic ultrasound. [place], [place] 125on 04-09-2020 [place] 125 17 U/mL <38 [place] CEAon 04-09-2020 CEA 1.0 ng/mL <3.9 [place] Comment on above: The Sonia ECLIA as say is used. Results obtained with different assay methods cannot be used interchangeably. Otheron 03-19-2020 Direct Exam Negative [place] VAGINITIS DNA PROBEon 2019 Direct Exam Positive Abnormal [place] Direct Exam Method of testing is a DNA probe intended for detection and identification of Ovidio species, Gardnerella vaginalis, and Trichomonas vaginalis nucleic acid in vaginal fluid specimens from patients with symptoms of vaginitis/vaginosis. [place] Interpretation and review of laboratory results Abnormal [place] Special Requests NOT REPORTED [place] Specimen Description .VAGINA [place] Vital Signs Date Time Vital Sign Value Performing Clinician Facility 01-20-2023 12:30-0500 Respiratory rate 16 /min Manolo Alexander MD Work Phone: [employer] [facility] 01-20-2023 12:30-0500 SaO2% (BldA) [Mass fraction] 99 % Manolo Alexander MD Work Phone: [employer] [facility] 01-20-2023 12:23-0500 Body temperature 98.6 [degF] Manolo Alexander MD Work Phone: [employer] 01-20-2023 12:23-0500 Diastolic blood pressure 72 mm[Hg] Manolo Alexander MD Work Phone: [facility] [employer] 01-20-2023 12:23-0500 Heart rate 121 /min Manolo Alexander MD Work Phone: [facility] [employer] 01-20-2023 12:23-0500 Systolic blood pressure 122 mm[Hg] Manolo Alexander MD Work Phone: [facility] [employer] 06-13-2022 11:45-0400 Diastolic blood pressure 78 mm[Hg] Lizzy Lunag DO Work Phone: [employer] 06-13-2022 11:45-0400 Heart rate 64 /min Lizzycarly Lunag DO Work Phone: [facility] [employer] 06-13-2022 11:45-0400 Respiratory rate 16 /min Lizzycarly Lunag DO Work Phone: [employer] 06-13-2022 11:45-0400 SaO2% (BldA) [Mass fraction] 97 % Lizzy Lunag DO Work Phone: [employer] 06-13-2022 11:45-0400 Systolic blood pressure 120 mm[Hg] Lizzy Lunag DO Work Phone: [facility] [employer] 06-13-2022 10:16-0400 Body temperature 97.3 [degF] Lizzycarly Lunag DO Work Phone: [employer] 06-13-2022 06:37-0400 Body height 175.3 cm Lizzycarly Lunag DO Work Phone: [facility] [employer] 06-13-2022 06:37-0400 Body mass index (BMI) [Ratio] 22.8 kg/m2 Lizzycarly Lunag DO Work Phone: [employer] 06-13-2022 06:37-0400 Body weight 70.03 kg Lizzy Oakley DO Work Phone: [facility] [employer] 05-03-2022 14:19-0400 SaO2% (BldA) [Mass fraction] 97 % Pavan Pickard MD Work Phone: [facility] [employer] 05-03-2022 12:30-0400 Diastolic blood pressure 76 mm[Hg] Pavan Pickard MD Work Phone: [facility] [employer] 05-03-2022 12:30-0400 Heart rate 96 /min Pavan Pickard MD Work Phone: [facility] [employer] 05-03-2022 12:30-0400 Respiratory rate 18 /min Pavan Pickard MD Work Phone: [facility] [employer] 05-03-2022 12:30-0400 Systolic blood pressure 127 mm[Hg] Pavan Pickard MD Work Phone: [facility] [employer] 05-03-2022 11:35-0400 Body mass index (BMI) [Ratio] 22.15 kg/m2 Pavna Pickard MD Work Phone: [facility] [employer] 05-03-2022 11:35-0400 Body temperature 100.51 [degF] Pavan Pickard MD Work Phone: [facility] [employer] 05-03-2022 11:35-0400 Body weight 68.04 kg Pavan Pickard MD Work Phone: [facility] [employer] 02-23-2022 15:30-0400 Body height 172.72 cm Fredy Lerma Other [employer] Other 02-23-2022 15:30-0400 Body mass index (BMI) [Ratio] 23.11 kg/m2 Fredy Lerma Other [employer] Other 02-23-2022 15:30-0400 Body weight 68.95 kg Fredy Lerma Other [employer] Other 08-04-2021 11:15-0400 Body temperature 97.59 [degF] Naresh Anaya MD Work Phone: [employer] Work Phone: 08-04-2021 11:15-0400 Diastolic blood pressure 88 mm[Hg] Naresh Anaya MD Work Phone: [employer] Work Phone: 08-04-2021 11:15-0400 Heart rate 94 /min Naresh Anaya MD Work Phone: [employer] Work Phone: 08-04-2021 11:15-0400 Respiratory rate 16 /min Naresh Anaya MD Work Phone: [employer] Work Phone: 08-04-2021 11:15-0400 SaO2% (BldA) [Mass fraction] 98 % Naresh Anaya MD Work Phone: [employer] Work Phone: 08-04-2021 11:15-0400 Systolic blood pressure 128 mm[Hg] Naresh Anaya MD Work Phone: [employer] Work Phone: 11-30-2020 12:10-0500 BP Diastolic 67 mm[Hg] Lizzy [facility] [place] 11-30-2020 12:10-0500 BP Systolic 128 mm[Hg] [facility] [place] 11-30-2020 12:10-0500 Pulse (Heart Rate) 68 /min [facility] [place] 11-30-2020 12:10-0500 Pulse Oximetry 98 % [facility] [place] 11-30-2020 12:10-0500 Respiratory Rate 16 /min [facility] [place] 11-30-2020 11:45-0500 Body Temperature 98.49 [degF] [facility] [place] 11-30-2020 07:02-0500 BMI (Body Mass Index) 21.99 kg/m2 [facility] [place] 11-30-2020 07:02-0500 Body weight 65.59 kg Lizzy Flynn [facility], [place] 11-30-2020 07:02-0500 Height 172.7 cm [place]zy [place] Encounters Encounter Date Encounter Type Care Provider Facility Start: 01-20-2023 End: 01-20-2023 [facility]: 01-20-2023 End: 01-20-2023 Emergency department patient visit Manolo Alexander MD Work Phone: [facility] Comment on above: Pain, dental (Primar y Dx) Start: 12-27-2022 End: 12-28-2022 [facility] Start: 12-27-2022 End: 12-27-2022 Subsequent hospital visit by physician Pavan Pickard MD Work Phone: [facility] Comment on above: Screen for STD (sexu ally transmitted disease); Dysuria Start: 12-02-2022 End: 12-02-2022 Emergency department patient visit JUSTIN Wilbert CalderaGINGER [facility] Start: 06-13-2022 End: 06-13-2022 [facility] Start: 06-13-2022 End: 06-13-2022 Subsequent hospital visit by physician Lizzy Hernán Lunag Work Phone: [facility] Comment on above: Post-op pain (Primar y Dx) Start: 05-24-2022 End: 05-25-2022 ambulatory LIZZY OAKLEY [facility] Start: 05-24-2022 Encounter for gynecological examination (general) (routine) without abnormal findings [facility] Start: 05-24-2022 End: 05-24-2022 Patient encounter procedure Pavan Pickard MD Work Phone: [facility] Start: 05-24-2022 End: 05-24-2022 Subsequent hospital visit by physician Pavan Pickard MD Work Phone: [facility] Comment on above: Women's annual routi ne gynecological examination; Pelvic pain in female; Dyspareunia, female; Adenomyosis Start: 05-04-2022 End: 05-04-2022 ambulatory Fredy Lerma Other [employer] Other Start: 05-04-2022 Telephone encounter Fredy Pantoja [facility] Start: 05-03-2022 Emergency department patient visit [facility] Start: 05-03-2022 End: 05-03-2022 Emergency department patient visit Pavancharla Pickard MD Work Phone: [facility] Comment on above: Chest pain, unspecif ied type (Primary Dx); Acute viral syndrome Start: 03-28-2022 End: 03-28-2022 ambulatory Fredy Lerma Other [employer] Other Start: 03-28-2022 Telephone encounter Fredy Pantoja [facility] Start: 03-22-2022 End: 03-23-[address] [facility] Start: 03-22-2022 End: 03-22-2022 Subsequent hospital visit by physician Khurram Covid Screening Schedule [facility] Covid Screening Comment on above: Arrived Start: 03-09-2022 End: 03-09-2022 ambulatory Fredy Lerma Other [employer] Other Start: 03-09-2022 Telephone encounter Fredy Lerma [facility] Start: 03-08-2022 End: 03-09-2022 ambulatory PAVAN PICKARD [facility] Start: 02-23-2022 End: 02-23-2022 ambulatory Fredy Lerma Other [employer] Other Start: 02-23-2022 [facility] visit new patient Fredy Lerma [facility] Start: 12-04-2021 End: 12-05-2021 ambulatory MALLY YULI Facility: Start: 08-04-2021 End: 08-04-2021 Emergency department patient visit Naresh Anaya MD Work Phone: [facility] Comment on above: Myalgia (Primary Dx) ; Acute bilateral low back pain with sciatica, sciatica laterality unspecified Start: 05-19-2021 End: 05-19-2021 Subsequent hospital visit by physician Pavan Pickard MD Work Phone: [facility] Comment on above: Vaginal discharge Start: 02-18-2021 End: 02-18-2021 Subsequent hospital visit by physician Navjot Swanson Work Phone: [facility] Comment on above: Arrived Start: 12-19-2020 Patient encounter procedure MANOLO DAVIS [facility] Start: 11-30-2020 End: 11-30-2020 Subsequent hospital visit by physician Lizzy Oakley Work Phone: [facility] Comment on above: Post-op pain (Primar y Dx) Start: 11-23-2020 End: 11-27-2020 Subsequent hospital visit by physician Mariah Covid19 Pat Screening Schedule [facility] PRE ADMIT Comment on above: Preoperative testing Start: 09-02-2020 Patient encounter procedure AMNA TERRELL [facility] Start: 09-01-2020 End: 09-03-2020 Subsequent hospital visit by physician Mariah Ultrasound Room 2 At [facility] Ul[facility]ound Comment on above: Pelvic pain Start: 04-09-2020 End: 04-09-2020 Subsequent hospital visit by physician Manolo Davis [facility] Comment on above: Screening for cervic al cancer Start: 04-09-2020 End: 04-09-2020 Subsequent hospital visit by physician Manolo [facility] Comment on above: Complex ovarian cyst Start: 03-19-2020 End: 03-19-2020 Subsequent hospital visit by physician Manolo [facility] Comment on above: Abdominal pain, unsp ecified abdominal location Start: 07-30-2019 End: 07-30-2019 Subsequent hospital visit by physician Manolo [facility] Comment on above: Vaginal discharge; Abdominal pain, unspecified abdominal location Procedures Date Procedure Procedure Detail Performing Clinician Start: 01-20-2023 Urine test visual color cmprsn meths Manolo Alexander MD Work Phone: Start: 01-20-2023 Urnls dip stick/tabl et reagent auto microscopy Manolo Alexander MD Work Phone: Start: 12-27-2022 Urnls dip stick/tabl et rgnt auto w/o microscopy Lizzy Lunag DO Work Phone: Start: 12-27-2022 End: 12-27-2022 Iadna ovidio species direct probe tq Lizzy Jim Rina Oakley DO Work Phone: Start: 05-24-2022 Urinalysis microscopic only Lizzy Lunag DO Work Phone: Start: 05-24-2022 Urnls dip stick/tabl et rgnt auto w/o microscopy Lizzy Chewtrong DO Work Phone: Start: 05-24-2022 Microscopic observat ion [Identifier] in Cervix by Cyto stain Lizzy Lunag DO Work Phone: Start: 05-03-2022 COVID-19, RAPID Aries scanlon PA-C Work Phone: Start: 05-03-2022 Iaadiadoo influenza Magaly ADKINSC Work Phone: Start: 05-03-2022 Urnls dip stick/tabl et rgnt auto w/o microscopy Aries Reis PA-C Work Phone: Start: 05-03-2022 Basic metabolic pane l calcium total Judy J Gabriel DO Work Phone: Start: 05-03-2022 Radiologic exam ches t single view Judy J Gabriel DO Work Phone: Start: 05-03-2022 Ecg routine ecg w/le ast 12 lds w/i&r Judy J Gabriel DO Work Phone: Start: 08-04-2021 Fibrin dgradj produc ts d-dimer quantitative Naresh Anaya MD Work Phone: Start: 08-04-2021 Ecg routine ecg w/le ast 12 lds w/i&r Naresh Anaya MD Work Phone: Start: 08-04-2021 End: 08-04-2021 Basic metabolic panel calcium total Nareshjethro Anaya MD Work Phone: Start: 08-04-2021 Hepatic function panel Jose Antonio Bejarano [employer] PA-C Work Phone: Start: 08-04-2021 SPECIMEN REJECTION Wiliam Bejarano Samm PA-C Work Phone: Start: 08-04-2021 Radex spine lumbosac ral 2/3 views Jose Antonio Bejarano Samm PA-C Work Phone: Start: 08-04-2021 Radiologic exam ches t single view Naresh Anaya MD Work Phone: Start: 02-18-2021 Radiography of cervical spine Navjot Swanson Work Phone: Start: 02-18-2021 Diagnostic radiograp hy of lumbar spine Navjot Swanson Work Phone: Start: 11-30-2020 Urine test visual color cmprsn meths Lizzy F Rina Oakley Work Phone: Start: 11-23-2020 COVID-19 Stepan Ayanu regleslye Work Phone: Start: 09-01-2020 Us transvaginal Mariela Mercado Work Phone: Start: 04-09-2020 Carcinoembryonic antigen cea Mariela Mercado Work Phone: Start: 04-09-2020 Immunoassay tumor an tigen quantitative ca 125 Mariela Mercado Work Phone: Start: 04-09-2020 Microscopic observat ion [Identifier] in Cervix by Cyto stain Narehs Anaya MD Work Phone: Start: 03-19-2020 Iadna ovidio specie s direct probe tq Mariela Mercado Work Phone: Plan of Treatment Date Care Activity Detail Author Start: 05-24-2025 Screening for malign ant neoplasm of cervix Pap smear [facility] Start: 06-22-2023 Depression Screen Depression Screen [facility] Start: 04-09-2023 Screening for malign ant neoplasm of cervix [facility] Start: 08-16-2022 Depression Screen Depression Screen [facility] Start: 07-28-2022 Influenza vaccination [facility] Start: 07-26-2022 End: 07-26-2022 Patient encounter procedure 07/26/2022 Office Visit Obstetrics and Gynecology Lizzy Lugo DO [address] [place] [address] [facility] Start: 06-27-2022 Influenza vaccination Flu vaccine (# 1) [facility] Start: 06-22-2022 End: 06-22-2022 Patient encounter procedure 06/22/2022 Office Visit Obstetrics and Gynecology Nancy Nobles PA-C [address] [place] [address] [facility] Start: 06-13-2022 End: 06-13-2022 Admission to same day surgery center 06/13/2022 Surgery IP Unit Lizzy Lugo DO [address] [place], [place] [id number] HYSTERECTOMY VAGINAL LAPAROSCOPIC ROBOTIC ASSISTED- POSS BSO,POSS [facility] Comment on above: HYSTERECTOMY VAGINAL LAPAROSCOPIC ROBOTIC ASSISTED- POSS BSO,POSS LAPAROSCOPIC COLPOPEXY Start: 06-13-2022 End: 06-13-2022 Laps total hysterect 250 gm/< w/rmvl tube/ovary [facility] Start: 06-13-2022 Subsequent hospital visit by physician 06/13/2022 Hospital Encounter IP Unit Lizzy Lugo, DO [address] [place] [address] [facility] Start: 05-25-2022 End: 05-25-2022 Patient encounter procedure 05/25/2022 Office Visit Obstetrics and Gynecology Mariela Mercado, MANAGER ETHICS - CNM [address] [place] [address] [phone] [facility] Start: 05-24-2022 End: 05-24-2022 Patient encounter procedure 05/24/2022 Office Visit Obstetrics and Gynecology Lizzy Lugo, DO [address] [place] [address] [facility] Start: 08-16-2021 End: 08-16-2021 Patient encounter procedure 08/16/2021 Office Visit Obstetrics and Gynecology Lizzy Lugo DO [address] [place] [address] [facility] Start: 07-28-2021 Influenza vaccination [facility] Work Phone: Start: 12-15-2020 End: 12-15-2020 Office Visit 12/15/2020 Office Visit Obstetrics and Gynecology Lizzy Lugo DO [address] [place] [address] [facility] Start: 11-30-2020 End: 11-30-2020 Hospital Encounter [facility] Comment on above: LAPAROSCOPY EXPLORAT ORY, DIAGNOSTIC, LYSIS OF ADHESIONS, ENDOMETRIOSIS Start: 09-22-2020 End: 09-22-2020 Office Visit 09/22/2020 Office Visit Obstetrics and Gynecology Lizzy Lugo DO [address] [place] [address] [facility] Start: 07-30-2020 Pneumococcal 0-64 ye ars Vaccine (1 of 1 - PPSV23) Pneumococcal 0-64 years Vaccine (1 of 1 - PPSV23) [place] Comment on above: Postponed from 11/15 (Insurance / Financial) Start: 07-28-2020 Influenza vaccination [place] Start: 07-22-2020 End: 07-22-2020 Office Visit 07/22/2020 Office Visit Obstetrics and Gynecology Mariela Mercado, KOFI - JULES [address] [place] [address] [address] [facility] Start: 05-13-2020 HPV vaccine (1 - 2-d ose series) HPV vaccine (1 - 2-dose series) [place] Comment on above: Postponed from 11/15 (Not Indicated) Start: 04-09-2020 DTaP/Tdap/Td vaccine (1 - Tdap) DTaP/Tdap/Td vaccine (1 - Tdap) [place] Comment on above: Postponed from 11/15 (Not Indicated) Start: 04-09-2020 Varicella vaccine (1 of 2 - 2-dose childhood series) Varicella vaccine (1 of 2 - 2-dose childhood series) [place] Comment on above: Postponed from 11/15 (Not Indicated) Start: 04-02-2020 End: 04-02-2020 Ancillary Procedure [facility] Start: 01-28-2020 Influenza vaccination Flu vaccine (# 1) [place] Comment on above: Postponed from 07/28 (Unavailable) Start: 09-23-2019 HPV vaccine (1 - Fem ilana 3-dose series) HPV vaccine (1 - Female 3-dose series) [place] Comment on above: Postponed from 11/15 (Not Indicated) Start: 09-10-2019 Chlamydia screen Chlamydia screen [place] Start: 08-20-2019 DTaP/Tdap/Td vaccine (1 - Tdap) DTaP/Tdap/Td vaccine (1 - Tdap) [place] Comment on above: Postponed from 11/15 (Not Indicated) Start: 08-20-2019 Varicella Vaccine (1 of 2 - 13+ 2-dose series) Varicella Vaccine (1 of 2 - 13+ 2-dose series) [place] Comment on above: Postponed from 11/15 (Not Indicated) Start: 2015 Cervical cancer screen Cervical canc er screen [place] Start: 2015 Screening for malign ant neoplasm of cervix [place] Start: 2013 DTaP/Tdap/Td vaccine (1 - Tdap) DTaP/Tdap/Td vaccine (1 - Tdap) [place] Start: 2013 Third diphtheria, tetanus and acellular pertussis (DTaP) vaccination TDAP (ADULT) [facility] Start: 09-10-2013 Varicella vaccine (2 of 2 - 13+ 2-dose series) Varicella vaccine (2 of 2 - 13+ 2-dose series) [facility] Start: 2012 Tetanus vaccination TETANUS [facility] Start: 2010 Screening for Chlamy shine trachomatis CHLAMYDIA SCREEN [facility] Start: 2007 HIV screening HIV SCREENING DISCUSSION [facility] Start: 2006 COVID-19 Vaccine (1) COVID-19 Vaccin e (1) [facility] Work Phone: Start: 2005 DTaP/Tdap/Td vaccine (6 - Tdap) DTaP/Tdap/Td vaccine (6 - Tdap) [facility] Start: 2005 HPV vaccine (1 - 2-d ose series) HPV vaccine (1 - 2-dose series) [place] Start: 2005 Vaccination for danni n papillomavirus HPV VACCINE ADOL (1 - 2-dose series) [facility] Start: 2000 Pneumococcal 0-64 ye ars Vaccine (1 - PCV) Pneumococcal 0-64 years Vaccine (1 - PCV) [facility] Start: 2000 Pneumococcal 0-64 ye ars Vaccine (1 of 1 - PPSV23) Pneumococcal 0-64 years Vaccine (1 of 1 - PPSV23) [place] Start: 2000 Pneumococcal 0-64 ye ars Vaccine (1 of 2 - PPSV23) Pneumococcal 0-64 years Vaccine (1 of 2 - PPSV23) [facility] Work Phone: Start: 1999 COVID-19 Vaccine (1) COVID-19 Vaccin e (1) [facility] Start: 1995 Varicella vaccine (1 of 2 - 2-dose childhood series) Varicella vaccine (1 of 2 - 2-dose childhood series) [place] Start: 05-16-1995 COVID-19 Vaccine (#1) COVID-19 Vacci ne (#1) [facility] Start: 1994 GONORRHEA SCREEN GONORRHEA SCREEN [facility] Start: 1994 Hepatitis C antibody , confirmatory test HEPATITIS C VIRUS SCREENING [facility] End: 07-30-2019 C.trachomatis N.gonorrhoeae DNA C.trachomatis N.gonorrhoeae DNA Microbiology Routine Abdominal pain, unspecified abdominal location 1 Occurrences starting 07/30/2019 until 07/30/2019 [place] Comment on above: 1 Occurrences starti ng 07/30/2019 until 07/30/2019 C.trachomatis N.gonorrhoeae DNA [place] End: 03-19-2020 C.trachomatis N.gonorrhoeae DNA C.trachomatis N.gonorrhoeae DNA Microbiology Routine Abdominal pain, unspecified abdominal location 1 Occurrences starting 03/19/2020 until 03/19/2020 [place] Comment on above: 1 Occurrences starti ng 03/19/2020 until 03/19/2020 End: 05-19-2021 C.trachomatis N.gonorrhoeae DNA C.trachomatis N.gonorrhoeae DNA Microbiology Routine Vaginal discharge 1 Occurrences starting 05/19/2021 until 05/19/2021 [employer] Phone: Comment on above: 1 Occurrences starti ng 05/19/2021 until 05/19/2021 End: 12-27-2022 Chlamydia Trachomatis & Neisseria gonorrhoeae (GC) by amplified detection [employer] Phone: Comment on above: 1 Occurrences starti ng 12/27/2022 until 12/27/2022 End: 03-22-2022 COVID-19 [employer] Phone: Comment on above: Once for 1 Occurrenc es starting 03/22/2022 until 03/22/2022 End: 08-04-2021 COVID-19, Rapid COVID-19, Rapid Microbiology Routine One Time for 1 Occurrences starting 08/04/2021 until 08/04/2021 [employer] Phone: Comment on above: One Time for 1 Occur rences starting 08/04/2021 until 08/04/2021 End: 07-30-2019 Culture, Genital Culture, Genital Microbiology Routine Vaginal discharge 1 Occurrences starting 07/30/2019 until 07/30/2019 [facility] [place] Comment on above: 1 Occurrences starti ng 07/30/2019 until 07/30/2019 Culture, Genital [facility], [place] End: 05-19-2021 Culture, Genital Culture, Genital Microbiology Routine Vaginal discharge 1 Occurrences starting 05/19/2021 until 05/19/2021 [employer] Phone: Comment on above: 1 Occurrences starti ng 05/19/2021 until 05/19/2021 End: 04-09-2020 Cytopathology procedure, preparation of smear, genital source [facility] Routine Screening for cervical cancer 1 Occurrences starting 04/09/2020 until 04/09/2020 [employer], [place] Comment on above: 1 Occurrences starti ng 04/09/2020 until 04/09/2020 End: 05-24-2022 Cytopathology procedure, preparation of smear, genital source [facility] Routine Women's annual routine gynecological examination 1 Occurrences starting 05/24/2022 until 05/24/2022 [employer] Phone: Comment on above: 1 Occurrences starti ng 05/24/2022 until 05/24/2022 EKG 12 Lead EKG 12 Lead ECG STAT 08/04/2021 12:43 PM EDT [employer] Phone: End: 05-03-2022 EKG 12 Lead [employer] Phone: Comment on above: One Time for 1 Occur rences starting 05/03/2022 until 05/03/2022 End: 06-13-2022 INITIATE PACU OXYGEN THERAPY PROTOCOL Initiate PACU Oxygen Therapy Protocol Respiratory Care Routine Continuous until discontinued starting 06/13/2022 [employer] Comment on above: Continuous until dis continued starting 06/13/2022 Oxygen therapy [Mini mum Data Set] Initiate Oxygen Therapy Protocol Respiratory Care Routine Daily until discontinued starting 11/30/2020 [employer], [place] Comment on above: Daily until disconti nued starting 11/30/2020 Oxygen therapy [Mini mum Data Set] Initiate Oxygen Therapy Protocol Respiratory Care Routine As Needed until discontinued starting 06/13/2022 [employer] Phone: Comment on above: As Needed until disc ontinued starting 06/13/2022 Phase I & II - meter ed glucose Phase I & II - metered glucose Point of Care Testing Routine As Needed until discontinued starting 11/30/2020 [employer], [place] Comment on above: As Needed until disc ontinued starting 11/30/2020 Surgical Pathology Surgical Path ology Lab Routine Release Upon Ordering for 1 Occurrences starting 11/30/2020 [employer] Comment on above: Release Upon Orderin g for 1 Occurrences starting 11/30/2020 Surgical Pathology Surgical Path ology Lab Routine Release Upon Ordering for 1 Occurrences starting 06/13/2022 [employer] Phone: Comment on above: Release Upon Orderin g for 1 Occurrences starting 06/13/2022 End: 08-04-2021 Thyroxine (T4) free [Mass/volume] in Serum or Plasma T4, Free Lab Routine Once for 1 Occurrences starting 08/04/2021 until 08/04/2021 [employer] Phone: Comment on above: Once for 1 Occurrenc es starting 08/04/2021 until 08/04/2021 Thyroxine (T4) free [Mass/volume] in Serum or Plasma T4, Free Lab Routine 08/04/2021 12:30 PM EDT [employer] Phone: End: 08-04-2021 Urinalysis Reflex to Culture Urinalysis Reflex to Culture Lab STAT One Time for 1 Occurrences starting 08/04/2021 until 08/04/2021 [employer] Phone: Comment on above: One Time for 1 Occur rences starting 08/04/2021 until 08/04/2021 Payers Date Payer Category Payer Unknown [facility] [id number] 2021-Present [id number] 2014 Unknown [facility] xxxxxxxxxxxx 2014-Present [phone] [address] [place] [address] xxxxxxxxxxxx [id number] 2014 Unknown [id number] 1994 Unknown [id number] 1994 Unknown [id number] 1994 Unknown [id number] 1994 Unknown [id number] 1994 Unknown [id number] 1994 Unknown [id number] 1994 Unknown [id number] 1994 Unknown [id number] [id number] 1994 Unknown [id number] 1994 Unknown [id number] 1994 Unknown [id number] 1959 Unknown [id number] Social History Date Type Detail Facility Start: 07-30-2019 End: 06-13-2022 Tobacco smoking status NHIS Current every day smoker [place], [place] History of tobacco use Cigarette Smoker [place], [place] Start: 07-30-2019 End: 12-27-2022 Cigarettes smoked current (pack per day) - Reported [place] Start: 07-30-2019 Alcohol intake No [place], [place] Start: 1995 Sex Assigned At Not on file [place] Start: 04-09-2020 End: 12-27-2022 Alcohol intake Current drinker of alcohol (finding) [place], [place] Start: 03-19-2020 Alcohol Comment social [place] Exposure to SARS-CoV -2 (event) Unable to assess [place] Start: 06-23-2020 End: 06-13-2022 Tobacco use and exposure Never used [place], [place] Start: 04-23-2022 End: 01-20-2023 Exposure to SARS-CoV-2 (event) Not sure [place], [place] Start: 1995 Sex Assigned At Female [facility] Notes 02-23-2022 to 06-13-2022 Cookie Ni RN - 06/13/2022 12:07 PM Kirstin Juarez RN - 06/03/2022 2:34 PM EDTDischarge InstructionsInstructionsAttachments Note Date & Type Note Facility 06-13-2022 History of Presen t illness Narrative Pt verbalized readiness to go home. Discharge instructions given to pt and spouse. Verbalized understanding and all questions answered at this time. Discharge Criteria Inpatients must meet Criteria 1 through 7. All other patients are either YES or N/A. If a NO is chosen then Anesthesia or Surgeon must be notified. 1. Minimum 30 minutes after last dose of sedative medication, minimum 120 minutes after last dose of reversal agent. Yes 2. Systolic BP stable within 20 mmHg for 30 minutes & systolic BP between 90 & 180 or within 10 mmHg of baseline. Yes 3. Pulse between 60 and 100 or within 10 bpm of baseline. Yes 4. Spontaneous respiratory rate >/= 10 per minute. Yes 5. SaO2 >/= 95 or >/= baseline. Yes 6. Able to cough and swallow or return to baseline function. Yes 7. Alert and oriented or return to baseline mental status. Yes 8. Demonstrates controlled, coordinated movements, ambulates with steady gait, or return to baseline activity function. Yes 9. Minimal or no pain or nausea, or at a level tolerable and acceptable to patient. Yes 10. Takes and retains oral fluids as allowed. Yes 11. Procedural / perioperative site stable. Minimal or no bleeding. Yes 12. If GI endoscopy procedure, minimal or no abdominal distention or passing flatus. N/A 13. Written discharge instructions and emergency telephone number provided. Yes 14. Accompanied by a responsible adult. Yes Patient instructed per phone interview on the pre-operative, intra-operative, and post-operative process, as well as NPO status. Pre-operative instruction sheet reviewed with the patient as well as G skin prep instructions. Verbalizes understanding. documented in this encounter [facility] Work Phone: 06-13-2022 Hospital Discharg e instructions Cookie Ni RN - 06/13/2022 7:45 AM EDT SAME DAY SURGERY DISCHARGE INSTRUCTIONS 1. Do not drive or operate hazardous machinery for 24 hours. 2. Do not make important personal or business decisions for 24 hours. 3. Do not drink alcoholic beverages for 24 hours. 4. Do not smoke tobacco products for 24 hours. 5. Eat light foods (Jell-O, soups, etc....) and drink plenty of fluids (water, Sprite, etc...) up to 8 glasses per day, as you can tolerate. 6. If your bandages become soaked with bright red blood, place another dressing pad over your bandages. (DO NOT remove original bandage.) Call your surgeon for further instructions. A small amount of bright red blood is to be expected. 7. You may remove your dressing the morning following surgery; leave the steri-strips in place, they will fall off on their own. If they have not fallen off in 7-10 days, please remove them. 8. If no drainage from incisions you may shower. 9. Limit your activities for 24 hours. Do not engage in heavy work until your surgeon gives you permission. DO NOT lift anything heavier than 10 pounds. You may go up & down stairs and do any activity that can be done comfortably. 10. Report the following signs or any questions regarding your physical condition to your surgeon immediately: Excessive swelling of, or around the wound area. Redness or pus-like drainage Temperature of 100 degrees (F) or above. Excessive pain. If unable to urinate 4 hours after surgery. If bleeding at surgery site continues after 5-10 minutes of pressure. 11. Pain Control: Take pain meds as prescribed. You may use over the counter meds like Acetaminophen or Ibuprofen if not part of the meds already prescribed. While on narcotic pain meds DO NOT drive, operate machinery or make business decisions. 12. Try to avoid constipation (no bowel movement) by using over the counter Colace once or twice daily and increasing your fluid intake. Please call if no bowel movement after increasing fluid intake, use of Milk of Magnesia, Pericolace (laxative) or Dulcolax suppositories. 13. No sexual activity, tampons, douches, sitting in hot tubs/saunas or swimming in pools/ponds for 6 weeks or until cleared by your surgeon. 14. Call your surgeon for any questions regarding your surgery. 15. Call for an appointment to see JORGE Amin in [address] Tian -- [place] office [phone] [place] office [phone] documented in this encounter [employer] Phone: 05-03-2022 Hospital Discharg Aries Gonzáles PA-C - 05/03/2022 Follow-up with primary care doctor 2 days for reevaluation. Continue to drink plenty of fluids as tolerated, Tylenol or Motrin as directed for discomfort and fever. Promptly return to emergency department for new, changing, worsening of symptoms or other concerns. The following attachments cannot be sent through Care Everywhere.Viral Infections (Swedish)Chest Pain: Musculoskeletal (Swedish)Fever (Swedish)documented in this encounter [employer] Phone: 02-23-2022 Evaluation note Encounter Date Diagnosis Assessment Notes Jan, Abdominal pain (ICD-10 - R10.9) PATIENT STATES THAT WITH BOWELS IT DOES GET BETTER IT IS NOT CONSISTENT. PROCEED WITH COLONOSCOPY. [employer] Other Evaluation note* Diagnosis Vaginal discharge Leukorrhea, not specified as infective documented in this encounter [employer] Phone: [email or web address] note* Diagnosis Myalgia- Primary Mylagia and myositis, unspecified Acute bilateral low back pain with sciatica, sciatica laterality unspecified documented in this encounter [employer] Phone: evaluation note* Diagnosis Chest pain, unspecified type- Primary Acute viral syndrome documented in this encounter [employer] Phone: evaluation note* Diagnosis Women's annual routine gynecological examination Pelvic pain in female Unspecified symptom associated with female genital organs Dyspareunia, female Dyspareunia Adenomyosis Endometriosis of uterus documented in this encounter [employer] Phone: evaluation noteNo InformationNoNew [facility] [employer] Other Evaluation note* Diagnosis Post-op pain- Primary Other acute postoperative pain Dysmenorrhea Dyspareunia in female documented in this encounter [employer] Phone: evaletanuo note* Diagnosis Screen for STD (sexually transmitted disease) Screening examination for venereal disease Dysuria documented in this encounter [employer] Phone: evalhbqdab note* Diagnosis Pain, dental- Primary Unspecified disorder of the teeth and supporting structures documented in this encounter [employer] Phone: History general Narrative - Reported* Type Description Date Surgical History cervical biopsy Surgical History ABLATATION Hospitalization History child [facility] [employer] Other Hospital Discharge instructions* Attachments The following attachments cannot be sent through Care Everywhere. * Back Pain (Swedish) * Back: Stretches: Exercises (Swedish) [facility]: Hospital Discharge instructions* Attachments The following attachments cannot be sent through Care Everywhere. * Tooth and Gum Pain (Swedish) [facility] [employer] Phone: reason for visit Narrative* Auth/Cert Specialty Diagnoses / Procedures Referred By Mic vazquez Referred To Contact Diagnoses Pelvic pain Adenomyosis Dyspareunia in female PELVIC PAIN, ADENOMYOSIS, DYSPAREUNIA Procedures TX LAPAROSCOPY W TOT HYSTERECTUTERUS <=250 GRAM W TUBE/OVARY HYSTERECTOMY VAGINAL LAPAROSCOPIC ROBOTIC ASSISTED- POSS BSO,POSS LAPAROSCOPIC COLPOPEXY Lizzy Lugo, DO [address] [place] [address] [address] [address] [place] [address] Referral ID Status Reason Start Date Expiration Date Visits Re quested Visits Authorized [id number] 1 1 LARRY ELLIS [employer] Phone: Assessments Diagnosis Vaginal discharge Leukorrhea, not specified as infective Abdominal pain, unspecified abdominal location Diagnosis Screening for cervical cancer Screening for malignant neoplasm of the cervix Diagnosis Complex ovarian cyst Other and unspecified ovarian cyst Diagnosis Pelvic pain Diagnosis Post-op pain- Primary Other acute postoperative pain Menorrhagia with irregular cycle Excessive or frequent menstruation Diagnosis Abdominal pain, unspecified abdominal location Diagnosis Lumbar radiculopathy Thoracic or lumbosacral neuritis or radiculitis, unspecified Diagnosis Preoperative testing Preoperative examination, unspecified Advance Directives No Advanced Directives Records FoundDocuments on File Type Date Recorded 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 Advance Directives and Living Will Power of Chemical Engraver Latest Code Status on File Code Status Date Activated Date Inactivated Comments Full Code 12/28/2018 1:05 AM 12/28/2018 12:13 PM Full Code 12/27/2018 10:20 PM 12/28/2018 12:37 AM Full Code 12/27/2018 9:58 PM 12/27/2018 10:20 PM Full Code 11/01/2016 7:25 AM 11/03/2016 12:47 PM Full Code 11/01/2016 6:26 AM 11/01/2016 7:25 AM Documents on File Type Date Recorded 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 ACP-Advance Directive ACP-Power of Chemical Engraver Latest Code Status on File Code Status Date Activated Date Inactivated Comments Full Code 12/28/2018 1:05 AM 12/28/2018 12:13 PM Full Code 12/27/2018 10:20 PM 12/28/2018 12:37 AM Full Code 12/27/2018 9:58 PM 12/27/2018 10:20 PM Full Code 11/01/2016 7:25 AM 11/03/2016 12:47 PM Full Code 11/01/2016 6:26 AM 11/01/2016 7:25 AM Latest Code Status on File Code Status Date Activated Date Inactivated Comments Full Code 11/30/2020 7:35 AM Full Code 12/28/2018 1:05 AM 12/28/2018 12:13 PM Documents on File Type Date Recorded 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 ACP-Advance Directive ACP-Power of Chemical Engraver Latest Code Status on File Code Status Date Activated Date Inactivated Comments Full Code 11/30/2020 7:35 AM 11/30/2020 2:23 PM Full Code 12/28/2018 1:05 AM 12/28/2018 12:13 PM Latest Code Status on File Code Status Date Activated Date Inactivated Comments Full Code 06/13/2022 6:24 AM Full Code 11/30/2020 7:35 AM 11/30/2020 2:23 PM Latest Code Status on File Code Status Date Activated Date Inactivated Comments Full Code 06/13/2022 6:24 AM 06/13/2022 2:29 PM Full Code 11/30/2020 7:35 AM 11/30/2020 2:23 PM Reason for Referral Status Reason Specialty Diagnoses / Procedures Referred By Contact Referred To Contact Pending Review Radiology Diagnoses Pelvic pain Procedures US Non OB Transvaginal Mariela Mercado, MANAGER ETHICS - CNM [address] [facility] [address] [place] [address] [facility] Ultrasound [address] [place] [address] Discharge Instructions * Instructions* Radha Sherwood RN - 11/30/2020 SAME DAY SURGERY DISCHARGE INSTRUCTIONS 1. Do not drive or operate hazardous machinery for 24 hours. 2. Do not make important personal or business decisions for 24 hours. 3. Do not drink alcoholic beverages for 24 hours. 4. Do not smoke tobacco products for 24 hours. 5. Eat light foods (Jell-O, soups, etc....) and drink plenty of fluids (water, Sprite, etc...) up to 8 glasses per day, as you can tolerate. 6. If your bandages become soaked with bright red blood, place another dressing pad over your bandages. (DO NOT remove original bandage.) Call your surgeon for further instructions. A small amount ofbright red blood is to be expected. 7. You may remove your dressing the morning following surgery; leave the steri- strips in place, they will fall off on their own. 8. If no drainage from incisions you may shower. 9. Limit your activities for 24 hours. Do not engage in heavy work until your surgeon gives you permission. DO NOT lift anything heavier than 10 pounds. You may go up & down stairs and do any activity that can be done comfortably. 10. Report the following signs or any questions regarding your physical condition to your surgeon immediately: Excessive swelling of, or around the wound area. Redness or pus-like drainage Temperature of 100 degrees (F) or above. Excessive pain. If unable to urinate 4 hours after surgery. If bleeding at surgery site continues after 5-10 minutes of pressure. 11. Pain Control: Take pain meds as prescribed. You may use over the counter meds like Acetaminophen or Ibuprofen if not part of the meds already prescribed. While on narcotic pain meds DO NOT drive, operate machinery or make business decisions. 12. Try to avoid constipation (no bowel movement) by using over the counter Colace once or twice daily and increasing your fluid intake. Please call if no bowel movement after increasing fluid intake, use of Milk of Magnesia, Pericolace (laxative) or Dulcolax suppositories. 13. No sexual activity, tampons, douches, sitting in hot tubs/saunas or swimming in pools/ponds for6 weeks or until cleared by your surgeon. 14. Call your surgeon for any questions regarding your surgery. 15. Call for an appointment to see your surgeon in [address] Tian -- [place] office [phone] [place] office [phone] documented in this encounter History of Present Illness * Radha Sherwood RN - 11/30/2020 12:15 PM EST Discharge instructions given to patient and patients . Both verbalize understanding and denies any questions at this time. Discharge Criteria Inpatients must meet Criteria 1 through 7. All other patients are either YES or N/A. If a NO is chosen then Anesthesia or Surgeon must be notified. 1. Minimum 30 minutes after last dose of sedative medication, minimum 120 minutes after last dose of reversal agent. Yes 2. Systolic BP stable within 20 mmHg for 30 minutes & systolic BP between 90 & 180 or within 10 mmHg of baseline. Yes 3. Pulse between 60 and 100 or within 10 bpm of baseline. Yes 4. Spontaneous respiratory rate >/= 10 per minute. Yes 5. SaO2 >/= 95 or >/= baseline. Yes 6. Able to cough and swallow or return to baseline function. Yes 7. Alert and oriented or return to baseline mental status. Yes 8. Demonstrates controlled, coordinated movements, ambulates with steady gait, or return to baseline activity function. Yes 9. Minimal or no pain or nausea, or at a level tolerable and acceptable to patient. Yes 10. Takes and retains oral fluids as allowed. Yes 11. Procedural / perioperative site stable. Minimal or no bleeding. Yes 12. If GI endoscopy procedure, minimal or no abdominal distention or passing flatus. N/A 13. Written discharge instructions and emergency telephone number provided. Yes 14. Accompanied by a responsible adult. Yes * Radha Sherwood RN - 11/30/2020 11:45 AM EST Pt steady upon ambulation to restroom and back to chair * Radha Sherwood RN - 11/30/2020 10:30 AM EST [place] warmer applied at this time. * Beth Guardado RN - 11/16/2020 3:59 PM EST Patient instructed on the pre-operative, intra-operative, and post-operative process. Patient instructed on NPO status. Medication instructions and Pre operative instruction sheet reviewed over the phone. documented in this encounter Summary Purpose Family History No Family History Records FoundNo Family History Records FoundNo Family History Records FoundNo Family History Records FoundNo Family History Records Found Additional Source Comments Reason for Visit (unrecogniz ed section and content) Status Reason Specialty Diagnoses / Procedures Referred By Contact Referred To Contact Pending Review Radiology Diagnoses Pelvic pain Procedures US Non OB Transvaginal Mariela Mercado, MANAGER ETHICS - CNM [address] [place] [address] [facility] Ultrasound [address] [place] [address] Status Reason Specialty Diagnoses / Procedures Referre d By Contact Referred To Contact Diagnoses Pelvic pain Menorrhagia Dysmenorrhea PELVIC PAIN, MENORRHAGIA, DYSMENORRHEA Procedures TX LAP,FULGURATE/EXCISE LESIONS TX LAP,RMV ADNEXAL STRUCTURE TX HYSTEROSCOPY,W/ENDO BX LAPAROSCOPY EXPLORATORY, DIAGNOSTIC, LYSIS OF ADHESIONS, ENDOMETRIOSIS SALPINGECTOMY LAPAROSCOPIC DILATATION AND CURETTAGE HYSTEROSCOPY CAUTERY ABLATION, Lizzy Sanchez DO [address] [place] [address] [facility] Reason Comments Chest Pain ongoing for 2-3 week s and I'm tired of it states her PCP wont see her until she is seen at the ER Back Pain ongoing for 2-3 week s Reason Comments Chest Pain pt c/o mid anterior chest pain , onset Monday Reason Comments Dental Pain Illness Left lower teeth; fo r about one week; also complains of ear, nose, throat pain; also states she has abdominal tenderness and states it feels the same as a prior kidney infection Ordered Prescriptions (unrec ognized section and content) Prescription Sig Dispensed Refills Start Date End Da te HYDROcodone-acetaminophe n (NORCO) 5-325 MG per tabletIndications:Post-o p pain Take 1 tablet by mouth every 4 hours as needed for Pain for up to 2 days. Intended supply: 3 days. Take lowest dose possible to manage pain 12 tablet 0 11/30/2020 12/02/2020 ketorolac (TORADOL) 10 MG tablet Take 1 tablet by mouth every 6 hours as needed for Pain 12 tablet 0 11/30/2020 Prescription Sig Dispensed Refills Start Date End Da te ibuprofen (IBU) 400 MG tablet Take 1 tablet by mouth every 6 hours as needed for Pain 30 tablet 0 08/04/2021 diphenhydrAMINE (BENADRYL) 25 MG capsule Take 1 capsule by mouth every 4 hours as needed for Sleep (Take one hour before bedtime) 30 capsule 0 08/04/2021 08/14/2021 Prescription Sig Dispensed Refills Start Date End Da te HYDROcodone-acetaminophe n (NORCO) 5-325 MG per tabletIndications:Post-o p pain Take 1 tablet by mouth every 6 hours as needed for Pain for up to 5 days. Intended supply: 5 days. Take lowest dose possible to manage pain 10 tablet 0 06/13/2022 06/18/2022 ketorolac (TORADOL) 10 MG tablet Take 1 tablet by mouth every 6 hours as needed for Pain 20 tablet 0 06/13/2022 06/13/2023 Prescription Sig Dispensed Refills Start Date End Da amoxicillin (AMOXIL) 500 MG capsule Take 1 capsule by mouth 2 times daily for 10 days 20 capsule 0 01/20/2023 01/30/2023 ibuprofen (IBU) 600 MG tablet Take 1 tablet by mouth every 6 hours as needed for Pain 20 tablet 0 01/20/2023 INFORMATION SOURCE (unrecogn ized section and content) DATE CREATED AUTHOR 12/20/2020 [facility] DATE CREATED AUTHOR AUTHOR'S ORGANIZ ATION 02/19/2021 [facility] DATE CREATED AUTHOR AUTHOR'S ORGANIZ ATION 12/08/2021 [facility] DATE CREATED AUTHOR AUTHOR'S ORGANIZ ATION 04/02/2022 [facility] DATE CREATED AUTHOR AUTHOR'S ORGANIZ ATION 01/21/2023 [facility] Scheduled Active and Recently Administ ered Medications (unrecognized section and content) Medication Order 08/02/2021 08/03/2021 08/04/2021 0.9 % sodium chloride bolus (COMPLETED) 1,000 mL, IntraVENous, at 1,000 mL/hr, Administer over 1 Hours, ONCE, On Mon08/04/21 at 1215, For 1 dose 1309 (New Bag - Prov ider: Brissa Small RN)1532 (Stopped - Provider: Brissa Small RN) aspirin chewable tablet 81 mg (COMPLETED) 81 mg, Oral, ONCE, On Mon08/04/21 at 1230, For 1 dose 1310 (Given - Provid er: Brissa Small RN) ketorolac (TORADOL) injection 30 mg (COMPLETED) 30 mg, IntraVENous, ONCE, On Mon08/04/21 at 1430, For 1 dose, Do not administer for more than 5 days. 1445 (Given - Provid er: Christel Moreno RN) Scheduled Medication Order 05/01/2022 05/02/2022 05/03/2022 ibuprofen (ADVIL;MOTRIN) tablet 800 mg (COMPLETED) 800 mg, Oral, ONCE, 1 dose, On Mon05/03/22 at 1245, Do not crush or chew. 1253 (Given - Provid er: Perfecto Altman RN) Scheduled Medication Order 06/11/2022 06/12/2022 06/13/2022 acetaminophen (TYLENOL) tablet 650 mg (COMPLETED) 650 mg, Oral, ONCE, 1 dose, On Mon06/13/22 at 0645, Maximum dose of acetaminophen is 4000 mg from all sources in 24 hours., Pre-op (day of surgery) 0651 (Given - Provid er: Gertrudis Gillis RN) ceFAZolin (ANCEF) 2000 mg in dextrose 5 % 100 mL IVPB (COMPLETED) 2,000 mg, IntraVENous, MANAGER CARDIOLOGY TO O.R., 1 dose, On Mon06/13/22 at 0645, Antimicrobial Indications: Surgical Prophylaxis, Administer within 1 hour prior to incision., Pre-op (day of surgery) 0839 (New Bag - Prov ider: Cookie Mercado RN)0909 (Due: Stopped - Provider: Cookie Mercado RN) dimenhyDRINATE (DRAMAMINE) tablet 50 mg (COMPLETED) 50 mg, Oral, ONCE, 1 dose, On Mon06/13/22 at 0645, Pre-op (day of surgery) 0651 (Given - Provid er: Gertrudis Gillis RN) enoxaparin (LOVENOX) injection 40 mg (COMPLETED) 40 mg, SubCUTAneous, 30 MIN PRE-OP, 1 dose, Starting on Mon06/13/22 at 0623, Until Discontinued, Indication of Use: Prophylaxis-DVT/PE, Pre-op (day of surgery) 0753 (Given - Provid er: Gertrudis Gillis RN) famotidine (PEPCID) injection 20 mg (COMPLETED) 20 mg, IntraVENous, ONCE, 1 dose, On Mon06/13/22 at 0645, Administer over 2 minutes., Pre-op (day of surgery) 0658 (Given - Provid er: Gertrudis Gillis RN) gabapentin (NEURONTIN) capsule 400 mg (COMPLETED) 400 mg, Oral, ONCE, 1 dose, On Mon06/13/22 at 0645, Pre-op (day of surgery) 0651 (Given - Provid er: Gertrudis Gillis RN) sodium chloride flush 0.9 % injection 5-40 mL 5-40 mL, IntraVENous, EVERY 12 HOURS SCHEDULED (2 times per day), First dose on Mon06/13/22 at 0900, Until Discontinued, For Line Patency: Peripheral IV = 5 mL; Midline or Central Line = 10 mL/lumen. If following IV push medication, administer flush at same rate as the IV push. Flush volume is determined by type of infusion therapy being given. For non-viscous solutions use: Peripheral IV = 5 mL Midline or Central Line = 10 mL/lumen For viscous solutions (i.e. blood components, parenteral nutrition, contrast media, or after obtaining blood sample) use: Peripheral IV = 10 mL Midline or Central Line = 20 mL/lumen 0900 (Due)2100 (Due) sodium chloride flush 0.9 % injection 5-40 mL 5-40 mL, IntraVENous, EVERY 12 HOURS SCHEDULED (2 times per day), First dose on Mon06/13/22 at 1145, Until Discontinued, For Line Patency: Peripheral IV = 5 mL; Midline or Central Line = 10 mL/lumen. If following IV push medication, administer flush at same rate as the IV push. Flush volume is determined by type of infusion therapy being given. For non-viscous solutions use: Peripheral IV = 5 mL Midline or Central Line = 10 mL/lumen For viscous solutions (i.e. blood components, parenteral nutrition, contrast media, or after obtaining blood sample) use: Peripheral IV = 10 mL Midline or Central Line = 20 mL/lumen, PACU only 1145 (Due)2100 (Due) Continuous Medication Order 06/11/2022 06/12/2022 06/13/2022 lactated ringers infusion IntraVENous, at 100 mL/hr, CONTINUOUS, Starting on Mon06/13/22 at 0645, Pre-op (day of surgery) 0657 (New Bag - Prov ider: Gertrudis Gillis RN)0841 (NoRateChange - Provider: KOFI Abebe CRNA)1012 (Paused - Provider: KOFI Burgess CRNA - Comment: Switch to gravity)1013 (Restarted - Provider: KOFI Burgess CRNA)1014 (Stopped - Provider: KOFI Burgess CRNA) PRN Medication Order 06/11/2022 06/12/2022 06/13/2022 0.9 % sodium chloride infusion IntraVENous, at 5-250 mL/hr, PRN, if patient receiving piggyback infusions and maintenance fluids are not ordered OR KVO fluids to protect IV site / prevent frequent line interruptions/ long duration, Starting on Mon06/13/22 at 0624, For piggyback infusion, administer at same rate as piggyback for a total of 25 mL. Enter 25 mL into dose field and piggyback rate into rate field of order. If piggyback is infusing at a rate less than 100 mL/hr, enter 25 mL into dose field and 100 mL/hr into rate field of order. For KVO fluids, enter rate of 20 mL/hr or less into rate field of order. 0.9 % sodium chloride infusion IntraVENous, at 5-250 mL/hr, PRN, if patient receiving piggyback infusions and maintenance fluids are not ordered OR KVO fluids to protect IV site / prevent frequent line interruptions/ long duration, Starting on Mon06/13/22 at 1129, For piggyback infusion, administer at same rate as piggyback for a total of 25 mL. Enter 25 mL into dose field and piggyback rate into rate field of order. If piggyback is infusing at a rate less than 100 mL/hr, enter 25 mL into dose field and 100 mL/hr into rate field of order. For KVO fluids, enter rate of 20 mL/hr or less into rate field of order., PACU only fentaNYL (SUBLIMAZE) injection 50 mcg 50 mcg, IntraVENous, EVERY 5 MIN PRN, 2 doses, Starting on Mon06/13/22 at 1129, Until Discontinued, Pain Severe (7-10), For Phase I. If Phase II oral narcotics have been administered in the last 60 minutes, do not administer IV narcotics unless specifically approved by provider., PACU only metoclopramide (REGLAN) injection 10 mg 10 mg, IntraVENous, ONCE PRN, 1 dose, Starting on Mon06/13/22 at 1129, Until Mon06/13/22 at 2359, Nausea, Secondary antiemetic therapy., PACU only ondansetron (ZOFRAN) injection 4 mg 4 mg, IntraVENous, ONCE PRN, 1 dose, Starting on Mon06/13/22 at 1129, Until Mon06/13/22 at 2359, Nausea, Initial antiemetic therapy., PACU only oxyCODONE (ROXICODONE) immediate release tablet 10 mg (COMPLETED) 10 mg, Oral, PRN, 1 dose, Starting on Mon06/13/22 at 1129, Until Mon06/13/22 at 1135, Pain Severe (7-10), PHASE II, PACU only 1135 (Given - Provid er: Cookie Ni RN) sodium chloride flush 0.9 % injection 5-40 mL 5-40 mL, IntraVENous, PRN, Starting on Mon06/13/22 at 0624, Until Discontinued, Line Care, After every IV line use, For Line Patency: Peripheral IV = 5 mL; Midline or Central Line = 10 mL/lumen. If following IV push medication, administer flush at same rate as the IV push. Flush volume is determined by type of infusion therapy being given. For non-viscous solutions use: Peripheral IV = 5 mL Midline or Central Line = 10 mL/lumen For viscous solutions (i.e. blood components, parenteral nutrition, contrast media, or after obtaining blood sample) use: Peripheral IV = 10 mL Midline or Central Line = 20 mL/lumen sodium chloride flush 0.9 % injection 5-40 mL 5-40 mL, IntraVENous, PRN, Starting on Mon06/13/22 at 1129, Until Discontinued, Line Care, After every IV line use, For Line Patency: Peripheral IV = 5 mL; Midline or Central Line = 10 mL/lumen. If following IV push medication, administer flush at same rate as the IV push. Flush volume is determined by type of infusion therapy being given. For non-viscous solutions use: Peripheral IV = 5 mL Midline or Central Line = 10 mL/lumen For viscous solutions (i.e. blood components, parenteral nutrition, contrast media, or after obtaining blood sample) use: Peripheral IV = 10 mL Midline or Central Line = 20 mL/lumen, PACU only Care Teams (unrecognized sec tion and content) Cleaning Staff Supervisor Relationship Specialty Start Date End Date Pavan De La Torre MD [address] [place] [address] PCP - General 05/19/21 Cleaning Staff Supervisor Relationship Specialty Start Date End Date Pavan De La Torre MD [address] [place], [place] [id number] PCP - General 05/19/21 Cleaning Staff Supervisor Relationship Specialty Start Date End Date Pavan De La Torre MD [address] [place] [address] PCP - General 05/19/21 Cleaning Staff Supervisor Relationship Specialty Start Date End Date Pavan De La Torre MD [address] [place] [address] PCP - General 05/19/21 Cleaning Staff Supervisor Relationship Specialty Start Date End Date Pavan De La Torre MD [address] [place], [place] [id number] PCP - General 05/19/21 Cleaning Staff Supervisor Relationship Specialty Start Date End Date Pavan De La Torre MD [address] [place], [place] [id number] PCP - General 05/19/21 FOR RECORDS PERTAINING TO PATIENTS WHO ARE OR HAVE BEEN ENROLLED IN A CHEMICAL DEPENDENCY/SUBSTANCEABUSE PROGRAM, SOME INFORMATION MAY BE OMITTED. This clinical summary was aggregated from multiple sources. Caution should be exercised in using it in the provision of clinical care. This summary normalizes information from multiple sources, and as a consequence, information in this document may materially change the coding, format and clinical context of patient data. In addition, data may be omitted in some cases. CLINICAL DECISIONS SHOULD BE BASED ON THE PRIMARY CLINICAL RECORDS. [facility]. provides no warranty or guarantee of the accuracy or completeness of information in this document.
== END 2024-10-09 12:31 | disposition home or self-care (01) ==
LOC: RAD 12:30
PROVIDERS: Visit Provider Podiatrist Foot & Ankle Surgery
DX: M79.671 Pain in right foot (principal)
CPT/HCPCS: 73630

== ENCOUNTER 2024-11-02 11:47 | Emergency (ER) | payer OTHER, SELFPAY ==
[2024-11-02 11:53] VITALS: BP 130/94; PULSE 118; TEMP 37.7; O2SAT 94; BMI 38.2
--- NOTE | 2024-11-02 12:07 | ED.URI1 ---
HPI - URI/Sore Throat General Chief Complaint: Upper Respiratory Infection Stated Complaint: flu like symptoms Time Seen by Provider: 11/02/24 11:52 Source: patient Limitations: no limitations History of Present Illness HPI Narrative: 28-year-old female presents to the emergency department for a cough which she has had for 3 days. She has been coughing up thick yellow to brown-colored phlegm. No hemoptysis and no fever. She is a smoker. Related Data Previous Rx's ?Medication ?Instructions ?Recorded acetaminophen 300 mg-codeine 30 mg 1 tab PO Q6H PRN pain 5 days #20 08/31/24 tablet tabs benzonatate 100 mg capsule 100 mg PO TID PRN cough #20 caps 11/02/24 doxycycline hyclate 100 mg capsule 100 mg PO BID 10 days #20 caps 11/02/24 Allergies Allergy/AdvReac Type Severity Reaction Status Date / Time No Known Drug Allergies Allergy Verified 11/02/24 11:59 Review of Systems ROS Narrative A ten point review of systems is negative except as noted above. PFSH PFSH Social History Little interest or pleasure in doing things: not at all Feeling down, depressed, or hopeless: not at all Exam Narrative Exam Narrative: Nurses note and vital signs reviewed and patient is not hypoxic. General: The patient appears well and in no apparent distress. Patient is resting comfortably on cart. Skin: Warm, dry, no pallor noted. There is no rash noted. Head: Normocephalic, atraumatic Eye: Normal conjunctiva, no drainage Ears, Nose, Mouth, and Throat: oral mucosa is moist. Nares patent. Cardiovascular: Regular Rate and Rhythm Respiratory: Patient is in no distress, no accessory muscle use, lungs are clear to auscultation, no wheezing, rales or rhonchi. Good air movement Back: non-tender GI: Abdomen soft and nontender Musculoskeletal: The patient has no evidence of calf tenderness, no pitting edema, symmetrical pulses noted bilaterally Neurological: A&O, normal speech Psychiatric: Cooperative Constitutional Vital Signs, click to edit/add: Last Vital Signs Temp 99.9 F 11/02/24 11:53 Pulse 118 H 11/02/24 11:53 Resp 24 H 11/02/24 11:53 BP 130/94 H 11/02/24 11:53 Pulse Ox 94 L 11/02/24 11:53 O2 Del Method Room Air 11/02/24 11:53 Course Vital Signs Vital signs: Vital Signs Temperature 99.9 F 11/02/24 11:53 Pulse Rate 118 H 11/02/24 11:53 Respiratory Rate 24 H 11/02/24 11:53 Blood Pressure 130/94 H 11/02/24 11:53 Pulse Oximetry 94 L 11/02/24 11:53 Oxygen Delivery Method Room Air 11/02/24 11:53 Temperature 99.9 F 11/02/24 11:53 Pulse Rate 118 H 11/02/24 11:53 Respiratory Rate 24 H 11/02/24 11:53 Blood Pressure 130/94 H 11/02/24 11:53 Pulse Oximetry 94 L 11/02/24 11:53 Oxygen Delivery Method Room Air 11/02/24 11:53 MDM - URI/Sore Throat MDM Narrative Medical decision making narrative: I do not clinically suspect COVID or influenza. I do not clinically suspect pneumonia. She is treated with doxycycline and Tessalon. Treatment diagnosis and follow-up were discussed with the patient. Differential Diagnosis Differential diagnosis: Likely upper respiratory infection, viral infection, bronchitis, influenza and other (COVID, pneumonia) Discharge Plan Discharge Chief Complaint: Upper Respiratory Infection Clinical Impression: Upper respiratory infection Patient Disposition: Home, Self-Care Time of Disposition Decision: 12:06 Condition: Good Mode of Transportation: Private Vehicle Prescriptions / Home Meds: New doxycycline hyclate 100 mg capsule 100 mg PO BID 10 Days Qty: 20 0RF benzonatate 100 mg capsule 100 mg PO TID PRN (Reason: cough) Qty: 20 0RF No Action acetaminophen-codeine 300-30 mg tablet 1 tab PO Q6H PRN (Reason: pain) 5 Days Qty: 20 0RF Print Language: Syriac Instructions: Upper Respiratory Infection (ED) Referrals: Wilfrid Alvarez [Primary Care Provider] - 1 week
== END 2024-11-02 12:17 | disposition home or self-care (01) ==
PROVIDERS: Emergency Provider Emergency Medicine
DX: J06.9 Acute upper respiratory infection, unspecified (principal); F17.200 Nicotine dependence, unspecified, uncomplicated; R50.9 Fever, unspecified
CPT/HCPCS: 99283

== ENCOUNTER 2024-11-06 08:58 | Outpatient (OUT) | payer OTHER, SELFPAY ==
--- NOTE | 2024-11-06 09:01 | XR_ITS ---
The [address] [address] Patient Name: CARMELINA GARCIA MRN: [id number] date: 1995 Sex: F Assigned Patient Location: [facility] Current Patient Location: Accession/Order Number: [id number] Exam Date: 11/06/2024 09:00 Report Date: 11/07/2024 05:01 At the request of: ADAIR GRANADOS Procedure: XR foot RT min 3V PROCEDURE: XR foot RT min 3V HISTORY: Right Foot Pain COMPARISON: XR foot right 10/09/2024 FINDINGS: BONES:Minimally displaced fracture of the base of the 5th metatarsal with intra-articular extension. SOFT TISSUES:Mild soft tissue swelling. EFFUSION:None visible. OTHER: Negative. XR/XR foot RT min 3V IMPRESSION: 1. Stable minimally displaced base of 5th metatarsal fracture with intra-articular extension. Slight irregularity of the fracture margins and minimally increased fracture line density compatible with early bone healing. Electronically authenticated by: SHEELA DIAZ Date: 11/07/2024 05:01
--- OUTSIDE RECORDS SUMMARY | 2024-11-06 09:11 | XMS_ITS | CCD ---
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 Name Role Phone Manolo Davis Primary Care Provider [phone] AMNA TERRELL Attending Unavailable MANOLO DAVIS Primary Care Unavailab MANOLO Pedroza Primary Care Unavailab AMNA Rao Attending Unavailable Manolo Davis Primary Care Provider Unavailable Primary Care Provider UnavailManolo Morgan Primary Care Provider Unavail able Wilfrid Pickard MD, [facility] Primary Care Provider MALLY ROLDAN Consulting Unavailable MALLY ROLDAN Attending Unavailable PETER, PAVAN Primary Care Unavailable MALLY ROLDAN Admitting Unavailable Nely Arita Consulting Unavailable Fredy Lerma Unavailable Wilfrid Pickard MD, [facility] Primary Care Provider WILFRID PICKARD, PAVAN Primary [...] Start: 08-10-2021 take 1 capsule by mo [facility] once daily DULoxetine (CYMBALTA) 30 MG extended release capsule Take 30 mg by mouth daily 0 08/10/2021 Suspended DULoxetine HCl A ctive Ferrous Mhdunjkne-P-Dyewh Ac id (IRON-C PO) (8 sources) Ferrous [...] 12-08-2021 Episodic Other aftercare (1 source) Other [facility] (current) drug therapy; Translations: [OTH [facility] CURRENT DRUG THERAPY] Onset: 12-08-2021 Episodic Other [...] ( test) Ql (U) Negative Normal NEG [facility] Comment on above: Result Comment: Spec imens with hCG levels near the threshold of the test (25 mIU/mL) may give a negative or indeterminate result. In such cases, another test should be performed with a new specimen in 48-72 hours. If early is suspected clinically in this setting, correlation with quantitative serum b-hCG level is suggested. [facility] has confirmed the use of plasma for this test. This has not been cleared or approved by the U.S. Food and Drug Administration. The FDA has determined that such clearance is not necessary. Performed By: #### L IP, CDP, CP #### [facility] [address] [place] [address] Railroad Accountant: Navjot Nelson MD , Urineon 3 Beta HCG ( test) Ql (U) Negative NEGATIVE [facility] Comment on above: Specimens with hCG l evels near the threshold of the test (25 mIU/mL) may give a negative or indeterminate result. In such cases, another test should be performed with a new specimen in 48-72 hours. If early is suspected clinically in this setting, correlation with quantitative serum b-hCG level is suggested. [facility] has confirmed the use of plasma for this test. This has not been cleared or approved by the U.S. Food and Drug Administration. The FDA has determined that such clearance is not necessary. [facility] Urinalysis w/ Microon 2022 Bacteria 2+ Abnormal NONE [facility] Comment on above: Performed By: #### L IP, CDP, CP #### [facility] [address] [place] [address] [place] [address] Railroad Accountant: Navjot Nelson MD Bilirubin, SemiQt,Ur Negative Normal NEG [facility] Comment on above: Performed By: #### L IP, CDP, CP #### [facility] [address] [place] [address] Railroad Accountant: Navjot Nelson MD Blood, Urine Negative Normal NEG [facility] Comment on above: Performed By: #### L IP, CDP, CP #### [facility] [address] [place] [address] Railroad Accountant: Navjot Nelson MD Clarity (U) Clear Normal CLEAR [facility] Comment on above: Performed By: #### L IP, CDP, CP #### [facility] [address] [place] [address] Dr[place], [place] [id number] Railroad Accountant: Navjot Nelson MD Color (U) Yellow Normal YEL [facility] Comment on above: Performed By: #### L IP, CDP, CP #### [facility] [address] [place] [address] Dr[place], [place] [id number] Railroad Accountant: Navjot Nelson MD Epithelial cells LM Ql (Urine sed) 2 TO 5 Normal 0-25 [facility] Comment on above: Performed By: #### L IP, CDP, CP #### [address] [place] [address] Railroad Accountant: Navjot Nelson MD Glucose Ql (U) Negative Normal NEG [facility] Comment on above: Performed By: #### L IP, CDP, CP #### [address] [place], [place] [id number] Railroad Accountant: Navjot Nelson MD Ketones Ql (U) Negative Normal NEG [facility] Comment on above: Performed By: #### L IP, CDP, CP #### [facility] [address] [place] [address] [place] [address] Railroad Accountant: Navjot Nelson MD Leukocyte esterase Test strip Ql (U) Negative Normal NEG [facility] Comment on above: Performed By: #### L IP, CDP, CP #### [facility] [address] [place] [address] [place] [address] Railroad Accountant: Navjot Nelson MD Mucus Strands 4+ Abnormal NONE [facility] Comment on above: Performed By: #### L IP, CDP, CP #### [facility] [address] [place] [address] [place] [address] Railroad Accountant: Navjot Nelson MD Nitrite,Ur Negative Normal NEG [facility] Comment on above: Performed By: #### L IP, CDP, CP #### [facility] [address] [place] [address] Dr[place], [place] [id number] Railroad Accountant: Navjot Nelson MD PH,Ur 6.0 Normal 5.0-9.0 [facility] Comment on above: Performed By: #### L IP, CDP, CP #### [address] [place] [address] Railroad Accountant: Navjot Nelson MD Protein Ql (U) Negative Normal NEG [facility] Comment on above: Performed By: #### L IP, CDP, CP #### [address] [place] [address] Railroad Accountant: Navjot Nelson MD Spec. Globe,Ur 1.020 Normal 1.010-1.020 [facility] Comment on above: Performed By: #### L IP, CDP, CP #### [address] [place] [address] Railroad Accountant: Navjot Nelson MD Urine RBC's 0 TO 2 Normal 0-2 [facility] Comment on above: Performed By: #### L IP, CDP, CP #### [address] [place] [address] Railroad Accountant: Navjot Nelson MD Urine WBC's 0 TO 2 Normal 0-5 [facility] Comment on above: Performed By: #### L IP, CDP, CP #### [facility] [address] [place] [address] [place] [address] Railroad Accountant: Navjot Nelson MD Urobilinogen,Ur Normal Normal NORM [facility] Comment on above: Performed By: #### L IP, CDP, CP #### [facility] [address] [place] [address] Dr[place], [place] [id number] Railroad Accountant: Navjot Nelson MD Urinalysis with Microscopico n 01-20-2023 Bacteria, UA 2+ Abnormal None [facility] Bilirubin Urine Negative NEGATIVE [facility] Color, UA Yellow Yellow [facility] Epithelial Cells UA 2 TO 5 [facility] Glucose Auto test strip (U) [Mass/Vol] Negative NEGATIVE [facility] Interpretation and review of laboratory results Abnormal [facility] Ketones (U) [Mass/Vol] Negative NEGATIVE [facility] Leukocyte esterase Auto test strip Ql (U) Negative NEGATIVE [facility] Mucus, UA 4+ Abnormal None [facility] Nitrite Auto test strip Ql (U) Negative NEGATIVE [facility] Protein (U) [Mass/Vol] 6.0 mg/dL 5.0 - 9.0 [facility] Protein (U) [Mass/Vol] Negative NEGATIVE [facility] RBC clumps Auto (Urine sed) [#/Area] 0 TO 2 [facility] Specific Globe, UA 1.020 1.010 - 1.020 [facility] Turbidity UA Clear Clear [facility] Urine Hgb Negative NEGATIVE [facility] Urobilinogen, Urine Normal Normal [facility] WBC, UA 0 TO 2 [facility] Chlamydia/GC,DNA Ampon 12-28 Chlamydia Probe Negative Normal NEG [facility] Comment on above: Result Comment: CHLA MYDIA [...] nucleic acid target. Performed By: #### S [facility] #### [address] [address] Railroad Accountant: Murali Candelario MD Gonorrhea Probe Negative Normal NEG [facility] Comment on above: Result Comment: NEIS SERIA [...] target. Performed By: #### S WC #### [address] [place], [place] [id number] Railroad Accountant: Murali Candelario MD Vaginitis DNA Probeon 2022 Ovidio Negative Normal NEG [facility] Comment on above: Result Comment: for Ovidio sp. Method of testing is a DNA probe intended for detection and identification of Ovidio species, Gardnerella vaginalis, and Trichomonas vaginalis nucleic acid in vaginal fluid specimens from patients with symptoms of vaginitis/vaginosis. Performed By: #### L IP CDP, CP #### [address] [place] [address] Railroad Accountant: Navjot Nelson MD Gardnerella Positive Abnormal [facility] Comment on above: Result Comment: for Gardnerella vaginalis Performed By: #### L ARI CDP, CP #### [address] [place] [address] Railroad Accountant: Navjot Nelson MD Trichomonas Negative Normal [facility] Comment on above: Result Comment: for Trichomonas Vaginalis Performed By: #### L ARI, CDP, CP #### [address] [place] [place] [address] Railroad Accountant: Navjot Nelson MD Microscopic Urinalysison Bacteria, UA 1+ Abnormal None [facility] Epithelial Cells UA 2 TO 5 [facility] Interpretation and review of laboratory results Abnormal [facility] Mucus, UA 1+ Abnormal None [facility] RBC, UA None [facility] WBC, UA 0 TO 2 [facility] UA w/Reflex Cultureon 2022 Bilirubin, SemiQt,Ur Negative Normal NEG [facility] Comment on above: Performed By: #### L IP, CDP, CP #### [facility] [address] [place] [address] Dr[place], [place] [id number] Railroad Accountant: Navjot Nelson MD Blood, Urine Negative Normal NEG [facility] Comment on above: Performed By: #### L IP, CDP, CP #### [facility] [address] [place] [address] Dr[place], [place] [id number] Railroad Accountant: Navjot Nelson MD Clarity (U) Clear Normal CLEAR [facility] Comment on above: Performed By: #### L IP, CDP, CP #### [address] [place], [place] [id number] Railroad Accountant: Navjot Nelson MD Color (U) Yellow Normal YEL [facility] Comment on above: Performed By: #### L IP, CDP, CP #### [address] [place], [place] [id number] Railroad Accountant: Navjot Nelson MD Glucose Ql (U) Negative Normal NEG [facility] Comment on above: Performed By: #### L IP, CDP, CP #### [address] [place] [address] Railroad Accountant: Navjot Nelson MD Ketones Ql (U) Negative Normal NEG [facility] Comment on above: Performed By: #### L IP, CDP, CP #### [address] [place], [place] [id number] Railroad Accountant: Navjot Nelson MD Leukocyte esterase Test strip Ql (U) Negative Normal NEG [facility] Comment on above: Performed By: #### L IP, CDP, CP #### [address] [place] [address] Railroad Accountant: Navjot Nelson MD Nitrite,Ur Negative Normal NEG [facility] Comment on above: Performed By: #### L ARI CDP, CP #### [facility] [address] [place] [address] Dr[place], [place] [id number] Railroad Accountant: Navjot Nelson MD PH,Ur 7.0 Normal 5.0-9.0 [facility] Comment on above: Performed By: #### L IP CDP, CP #### [facility] [address] [place] [address] [place] [address] Railroad Accountant: Navjot Nelson MD Protein Ql (U) Negative Normal NEG [facility] Comment on above: Performed By: #### L ANNIE CHAPMAN, CP #### [address] [place], [place] 5171983 Railroad Accountant: Navjot Nelson MD Spec. Globe,Ur 1.025 High 1.010-1.020 [facility] Comment on above: Performed By: #### L ANNIE CHAPMAN, CP #### [facility] [address] [place] [address] Dr[place], [place] 9695983 Railroad Accountant: Navjot Nelson MD Urobilinogen,Ur Normal Normal NORM [facility] Comment on above: Performed By: #### L ANNIE CHAPMAN, CP #### [address] [place], [place] [id number] Railroad Accountant: Navjot Nelson MD Urinalysis with Reflex to Cu ltureon 12-27-2022 Bilirubin Urine Negative NEGATIVE [facility] Color, UA Yellow Yellow [facility] Glucose, Ur Negative NEGATIVE [facility] Interpretation and review of laboratory results Abnormal [facility] Ketones Ql (U) Negative NEGATIVE [facility] Leukocyte esterase Test strip Ql (U) Negative NEGATIVE [facility] Nitrite, Urine Negative NEGATIVE [facility] pH, UA 7.0 5.0 - 9.0 [facility] Protein, UA Negative NEGATIVE [facility] Specific Globe, UA 1.025 High 1.010 - 1.020 [facility] Turbidity UA Clear Clear [facility] Urine Hgb Negative NEGATIVE [facility] Urobilinogen, Urine Normal Normal [facility] Urinalysis,Microon 3 Bacteria 1+ Abnormal NONE [facility] Comment on above: Performed By: #### L IP, CDP, CP #### [facility] [address] [place], [place] [id number] Railroad Accountant: Navjot Nelson MD Epithelial cells LM Ql (Urine sed) 2 TO 5 Normal 0-25 [facility] Comment on above: Performed By: #### L IP, CDP, CP #### [address] [place], [place] [id number] Railroad Accountant: Navjot Nelson MD Mucus Strands 1+ Abnormal NONE [facility] Comment on above: Performed By: #### L IP, CDP, CP #### [facility] [address] [place], [place] [phone] Railroad Accountant: Navjot Nelson MD Urine RBC's None Normal 0-2 [facility] Comment on above: Performed By: #### L IP, CDP, CP #### [facility] [address] [place] [address] Dr. [place], [place] 6421483 Railroad Accountant: Navjot Nelson MD Urine WBC's 0 TO 2 Normal 0-5 [facility] Comment on above: Performed By: #### L IP, CDP, CP #### [facility] [address] [place] [address] Dr. [place], [place] 7776683 Railroad Accountant: Navjot Nelson MD Vaginitis DNA Probeon 2022 Ovidio Species, DNA Probe Negative NEGATIVE [facility] Comment on above: for Ovidio sp. Method of testing is a DNA probe intended for detection and identification of Ovidio species, Gardnerella vaginalis, and Trichomonas vaginalis nucleic acid in vaginal fluid specimens from patients with symptoms of vaginitis/vaginosis. Gardnerella Vaginalis, DNA Probe Positive Abnormal NEGATIVE [facility] Comment on above: for Gardnerella vagi nalis Interpretation and review of laboratory results Abnormal [facility] Source .VAGINAL SWAB [facility] Trichomonas Vaginalis DNA Negative NEGATIVE [facility] Comment on above: for Trichomonas Vagi nalis [facility] Source .VAGINAL SWAB Normal [facility] Comment on above: Performed By: #### L ANNIE CHAPMAN, CP #### [facility] [address] [place] [address] [place] [address] Railroad Accountant: Navjot Nelson MD Cult,Urineon 12-04-2022 Cult,Urine Specimen Description .CLEAN CATCH URINE Culture ESCHERICHIA COLI >[id number] CFU/ML Report Status FINAL 12/03/2022 SUSCEPTIBILITY Organism [...] <=20 SUSCEPTIBLE Piperacillin/Tazobac gallegos <=4 SUSCEPTIBLE Susceptible [facility] Comment on above: Performed By: #### U RC #### [address] [id number] Railroad Accountant: Murali Candelario MD [facility] [address] [place] [address] [place] [address] Railroad Accountant: Navjot Nelson MD CBC with Diffon 4 Abs. Basophil 0.04 k/uL Normal 0.00-0.20 [facility] Comment on above: Performed By: #### L ANNIE CHAPMAN, CP #### [facility] [address] [place] [address] Railroad Accountant: Navjot Nelson MD Abs.Imm.Granulocyte 0.03 k/uL Normal 0.00-0.30 [facility] Comment on above: Performed By: #### L IP, CDP, CP #### [address] [place], [facility] Railroad Accountant: Navjot Nelson MD Abs.Neutrophil (Seg) 9.22 k/uL High 1.50-8.10 [facility] Comment on above: Performed By: #### L IP, CDP, CP #### [address] [place], [place] [address] Railroad Accountant: Navjot Nelson MD Basophils/100 WBC (Bld) 0 % Normal 0-2 [facility] Comment on above: Performed By: #### L IP, CDP, CP #### [address] [place], [place] [address] Railroad Accountant: Navjot Nelson MD Eosinophils (Bld) [#/Vol] 0.11 10*3/uL Normal 0.00-0.44 [facility] Comment on above: Performed By: #### L IP, CDP, CP #### [address] [place], [facility]83 Railroad Accountant: Navjot Nelson MD Eosinophils/100 WBC (Bld) 1 % Normal 1-4 [facility] Comment on above: Performed By: #### L IP, CDP, CP #### [address] [place], [place] [address] Railroad Accountant: Navjot Nelson MD Erythrocyte distribution width (RBC) [Ratio] 13.0 % Normal 11.8-14.4 [facility] Comment on above: Performed By: #### L IP, CDP, CP #### [address] [place], [facility] Railroad Accountant: Navjot Nelson MD Hematocrit (Bld) [Volume fraction] 35.3 % Low 36.3-47.1 [facility] Comment on above: Performed By: #### L IP, CDP, CP #### [place] [address] [place] [address] Railroad Accountant: Navjot Nelson MD Hemoglobin (Bld) [Mass/Vol] 12.4 g/dL Normal 11.9-15.1 [facility] Comment on above: Performed By: #### L IP, CDP, CP #### [address] [place] [address] Railroad Accountant: Navjot Nelson MD Immature granulocytes/100 WBC (Bld) 0 % Normal 0 [facility] Comment on above: Performed By: #### L IP, CDP, CP #### [address] [place], [facility]83 Railroad Accountant: Navjot Nelson MD Lymphocytes (Bld) [#/Vol] 1.41 10*3/uL Normal 1.10-3.70 [facility] Comment on above: Performed By: #### L IP, CDP, CP #### [address] [place], [facility]83 Railroad Accountant: Navjot Nelson MD Lymphocytes/100 WBC (Bld) 12 % Low 24-43 [facility] Comment on above: Performed By: #### L IP, CDP, CP #### [address] [place], [facility]83 Railroad Accountant: Navjot Nelson MD MCH (RBC) [Entitic mass] 31.6 pg Normal 25.2-33.5 [facility] Comment on above: Performed By: #### L IP, CDP, CP #### [address] [place] [address] Railroad Accountant: Navjot Nelson MD MCHC (RBC) [Mass/Vol] 35.1 g/dL High 28.4-34.8 [facility] Comment on above: Performed By: #### L IP, CDP, CP #### [address] [place], [place] [phone] Railroad Accountant: Navjot Nelson MD MCV (RBC) [Entitic vol] 89.8 fL Normal 82.6-102.9 [facility] Comment on above: Performed By: #### L IP, CDP, CP #### [facility] [address] [place], [facility]83 Railroad Accountant: Navjot Nelson MD Monocytes (Bld) [#/Vol] 1.19 10*3/uL Normal 0.10-1.20 [facility] Comment on above: Performed By: #### L IP, CDP, CP #### [address] [place], [facility]83 Railroad Accountant: Navjot Nelson MD Monocytes/100 WBC (Bld) 10 % Normal 3-12 [facility] Comment on above: Performed By: #### L IP, CDP, CP #### [address] [place], [facility]83 Railroad Accountant: Navjot Nelson MD Neutrophil (Seg) 77 % High 36-65 [facility] Comment on above: Performed By: #### L IP, CDP, CP #### [address] [place], [facility]83 Railroad Accountant: Navjot Neslon MD NRBC Automated 0.0 per 100 WBC Normal 0.0 [facility] Comment on above: Performed By: #### L IP, CDP, CP #### [address] [place], [facility]83 Railroad Accountant: Navjot Nelson MD Platelet mean volume (Bld) [Entitic vol] 10.3 fL Normal 8.1-13.5 [facility] Comment on above: Performed By: #### L IP, CDP, CP #### [facility] [address] [place], [place] [id number] Railroad Accountant: Navjot Nelson MD Platelets (Bld) [#/Vol] 169 10*3/uL Normal 138-453 [facility] Comment on above: Performed By: #### L IP CDP, CP #### [facility] [address] [place] [address] Railroad Accountant: Navjot Nelson MD RBC (Bld) [#/Vol] 3.93 10*6/uL Low 3.95-5.11 [facility] Comment on above: Performed By: #### L IP, CDP, CP #### [facility] [address] [place] [address] Railroad Accountant: Navjot Nelson MD WBC (Bld) [#/Vol] 12.0 10*3/uL High 3.5-11.3 [facility] Comment on above: Performed By: #### L IP CDP, CP #### [address] [place], [place] [id number] Railroad Accountant: Navjot Nelson MD CT ABDOMEN PELVIS WO [...] Roger Nevarez MD 12/02/22 Final result Normal [facility] Comp Metabolic Profon 2022 Albumin [Mass/Vol] 4.3 g/dL Normal 3.5-5.2 [facility] Comment on above: Performed By: #### L IP CDP, CP #### [address] [place] [address] Railroad Accountant: Navjot Nelson MD Albumin/Glob Ratio 1.3 Normal 1.0-2.5 [facility] Comment on above: Performed By: #### L IP, CDP, CP #### [address] [place] [address] Railroad Accountant: Navjot Nelson MD Alkaline Phos 82 U/L Normal 35-104 [facility] Comment on above: Performed By: #### L IP, CDP, CP #### [address] [place] [address] Railroad Accountant: Navjot Nelson MD ALT [Catalytic activity/Vol] 12 U/L Normal 5-33 [facility] Comment on above: Performed By: #### L IP, CDP, CP #### [facility] [address] [place] [address] [place] [address] Railroad Accountant: Navjot Nelson MD Anion gap [Moles/Vol] 9 mmol/L Normal 9-17 [facility] Comment on above: Performed By: #### L IP, CDP, CP #### [address] [place], [place] [id number] Railroad Accountant: Navjot Nelson MD AST [Catalytic activity/Vol] 14 U/L Normal <32 [facility] Comment on above: Performed By: #### L IP, CDP, CP #### [facility] [address] [place], [place] [id number] Railroad Accountant: Navjot Nelson MD Bilirubin [Mass/Vol] 0.7 mg/dL Normal 0.3-1.2 [facility] Comment on above: Performed By: #### L IP, CDP, CP #### [facility] [address] [place], [place] [id number] Railroad Accountant: Navjot Nelson MD BUN/CRE Ratio 16 Normal 9-20 [facility] Comment on above: Performed By: #### L IP, CDP, CP #### [facility] [address] [place], [place] [id number] Railroad Accountant: Navjot Nelson MD Calcium [Mass/Vol] 9.3 mg/dL Normal 8.6-10.4 [facility] [facility] Comment on above: Performed By: #### L IP, CDP, CP #### [facility] [address] [place], [place] [id number] Railroad Accountant: Navjot Nelson MD Chloride [Moles/Vol] 100 mmol/L Normal 98-107 [facility] Comment on above: Performed By: #### L IP, CDP, CP #### [facility] [address] [place], [place] [id number] Railroad Accountant: Navjot Nelson MD CO2 [Moles/Vol] 24 mmol/L Normal 20-31 [facility] Comment on above: Performed By: #### L IP, CDP, CP #### [facility] [address] [place] [address] Railroad Accountant: Navjot Nelson MD Creatinine [Mass/Vol] 0.62 mg/dL Normal 0.50-0.90 [facility] Comment on above: Performed By: #### L IP, CDP, CP #### [address] [place] [address] Railroad Accountant: Navjot Nelson MD GFR/1.73 sq M.predicted among non-blacks MDRD (S/P/Bld) [Vol rate/Area] mL/min/{1.73_m2} Normal >60 [facility] Comment on above: Result Comment: Effective Aug [...] By: #### L IP CDP, CP #### [address] [place] [address] Railroad Accountant: Navjot Nelson MD Glucose [Mass/Vol] 95 mg/dL Normal 70-99 [facility] Comment on above: Performed By: #### L ARI CDP, CP #### [address] [place] [address] Railroad Accountant: Navjot Nelson MD Potassium [Moles/Vol] 4.0 mmol/L Normal 3.7-5.3 [facility] Comment on above: Performed By: #### L IP, CDP, CP #### [address] [place] [address] Railroad Accountant: Navjot Nelson MD Protein [Mass/Vol] 7.5 g/dL Normal 6.4-8.3 [facility] Comment on above: Performed By: #### L IP, CDP, CP #### [address] [place] [address] Railroad Accountant: Navjot Nelson MD Sodium [Moles/Vol] 133 mmol/L Low 135-144 [facility] Comment on above: Performed By: #### L IP, CDP, CP #### [facility] [address] [place] [address] Railroad Accountant: Navjot Nelson MD Urea nitrogen [Mass/Vol] 10 mg/dL Normal 6-20 [facility] Comment on above: Performed By: #### L IP, CDP, CP #### [facility] [address] [place], [place] [id number] Railroad Accountant: Navjot Nelson MD Lactic Acidon 2 Lactate [Moles/Vol] 0.9 mmol/L Normal 0.5-2.2 [facility] Comment on above: Performed By: #### L ACTIC #### [address] [place] [address] Railroad Accountant: Navjot Nelson MD Lipaseon 8 Lipase [Catalytic activity/Vol] 23 U/L Normal 13-60 [facility] Comment on above: Performed By: #### L IP, CDP, CP #### [address] [place] [address] Railroad Accountant: Navjot Nelson MD Urinalysis w/ Microon 8 Bacteria 4+ Abnormal NONE [facility] Comment on above: Performed By: #### L IP, CDP, CP #### [facility] [address] [place] [address] Railroad Accountant: Navjot Nelson MD Bilirubin, SemiQt,Ur Negative Normal NEG [facility] Comment on above: Performed By: #### L IP, CDP, CP #### [facility] [address] [place] [address] Railroad Accountant: Navjot Nelson MD Blood, Urine 2+ Abnormal NEG [facility] Comment on above: Performed By: #### L IP, CDP, CP #### [facility] [address] [place] [address] Dr. [place], [place] [id number] Railroad Accountant: Navjot Nelson MD Clarity (U) Cloudy Abnormal CLEAR [facility] Comment on above: Performed By: #### L IP, CDP, CP #### [facility] [address] [place] [address] Dr. [place], [place] [id number] Railroad Accountant: Navjot Nelson MD Color (U) Yellow Normal YEL [facility] Comment on above: Performed By: #### L IP, CDP, CP #### [facility] [address] [place] [address] Dr. [place], [place] [id number] Railroad Accountant: Navjot Nelson MD Epithelial cells LM Ql (Urine sed) 5 TO 10 Normal 0-25 [facility] Comment on above: Performed By: #### L IP, CDP, CP #### [facility] [address] [place] [address] Dr. [place], [place] [phone] Railroad Accountant: Navjot Nelson MD Glucose Ql (U) Negative Normal NEG [facility] Comment on above: Performed By: #### L IP, CDP, CP #### [address] [place], [place] [phone] Railroad Accountant: Navjot Nelson MD Ketones Ql (U) Negative Normal NEG [facility] Comment on above: Performed By: #### L IP, CDP, CP #### [facility] [address] [place] [address] [place] [address] Railroad Accountant: Navjot Nelson MD Leukocyte esterase Test strip Ql (U) LARGE Abnormal NEG [facility] Comment on above: Performed By: #### L IP, CDP, CP #### [address] [place], [place] [phone] Railroad Accountant: Navjot Nelson MD Nitrite,Ur Positive Abnormal NEG [facility] Comment on above: Performed By: #### L IP, CDP, CP #### [facility] [address] [place] [address] Dr. [place], [place] [id number] Railroad Accountant: Navjot Nelson MD PH,Ur 6.0 Normal 5.0-9.0 [facility] Comment on above: Performed By: #### L IP, CDP, CP #### [facility] [address] [place] [address] [place] [address] Railroad Accountant: Navjot Nelson MD Protein Ql (U) 2+ Abnormal NEG [facility] Comment on above: Performed By: #### L IP, CDP, CP #### [address] [place], [place] [phone] Railroad Accountant: Navjot Nelson MD Spec. Globe,Ur 1.025 High 1.010-1.020 [facility] Comment on above: Performed By: #### L IP, CDP, CP #### [facility] [address] [place] [address] Dr. [place], [place] [phone] Railroad Accountant: Navjot Nelson MD Urine RBC's 10 TO 20 Normal 0-2 [facility] Comment on above: Performed By: #### L IP, CDP, CP #### [address] [place] [address] Railroad Accountant: Navjot Nelson MD Urine WBC's GREATER THAN 100 Normal 0-5 [facility] Comment on above: Performed By: #### L IP, CDP, CP #### [facility] [address] [place] [address] Dr. [place], [place] [phone] Railroad Accountant: Navjot Nelson MD Urobilinogen,Ur Normal Normal NORM [facility] Comment on above: Performed By: #### L IP, CDP, CP #### [address] 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 [address] Railroad Accountant: Navjot Nelson MD HPV DNA High Riskon 05-26-20 22 HPV Interp [facility] Comment on above: Result Comment: This test [...] purposes. Performed By: #### H PVH #### [address] [id number] Railroad Accountant: Murali Candelario MD HPV Type 16 Detected Abnormal [facility] Comment on above: Performed By: #### H PVH #### [address] [id number] Railroad Accountant: Murali Candelario MD HPV Type 18 Not detected Normal [facility] Comment on above: Performed By: #### H PVH #### [address] [id number] Railroad Accountant: Murali Candelario MD Other High Risk HPV Detected Abnormal [facility] Comment on above: Performed By: #### H PVH #### [address] [address] Railroad Accountant: Murali Candelario MD HPV DNA High Riskon 05-25-20 Source .GENITAL - NOT SPECIFIED Normal [facility] Comment on above: Performed By: #### H PVH #### [facility] [address] [place], [place] [phone] Railroad Accountant: Murali Candelario MD HPV Sample .THIN PREP Normal [facility] Comment on above: Performed By: #### H PVH #### [facility] [address] [place] [address] Railroad Accountant: Murali Candelario MD Cytologyon 05-24-2022 Cytology (NOTE) INTERPRETATION Cervical material, (ThinPrep vial, Imaging-assisted review): Specimen Adequacy: Satisfactory for evaluation. - Endocervical/transfo rmation zone component present. Descriptive Diagnosis: Atypical squamous cells of undetermined significance (ASC-US). 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 Electronically Signed Out rdd/06/03/2022 [...] review) Clinical History Endometrial ablation Z01.419 Routine ob/gyn physician exam without abnormal findings Co-Test: ThinPrep Pap with high risk HPV testing GYNECOLOGIC CYTOLOGY REPORT Patient Name: CARMELINA GARCIA [facility] Rec: [id number] Path Number: [id number] [facility] CON[facility]ULT[facility] PATHOLOGISTS [facility] ANATOMIC PATHOLOGY [address] [place] [address]. [place], [place] [phone] Normal [facility] Comment on above: Performed By: #### L IP, CDP, CP #### [facility] [address] [place] [address] Railroad Accountant: Navjot Nelson MD Microscopic Urinalysison - [facility] Bacteria, UA 1+ Abnormal None [facility] Epithelial Cells UA 2 TO 5 [facility] Interpretation and review of laboratory results Abnormal [facility] RBC, UA 0 TO 2 [facility] WBC, UA 0 TO 2 [facility] UA w/Reflex Cultureon 2021 Bilirubin, SemiQt,Ur Negative Normal NEG [facility] Comment on above: Performed By: #### U MICAO, UAX #### [facility] [address] [place] [address] Railroad Accountant: Navjot Nelson MD Blood, Urine Negative Normal NEG [facility] Comment on above: Performed By: #### U MICAO, UAX #### [facility] [address] [place] [address] Railroad Accountant: Navjot Nelson MD Clarity (U) Clear Normal CLEAR [facility] Comment on above: Performed By: #### U MICAO, UAX #### [facility] [address] [place] [address] Railroad Accountant: Navjot Nelson MD Color (U) Yellow Normal YEL [facility] Comment on above: Performed By: #### U MICAO, UAX #### [facility] [address] [place], [place] [phone] Railroad Accountant: Navjot Nelson MD Glucose Ql (U) Negative Normal NEG [facility] Comment on above: Performed By: #### U MICAO, UAX #### [facility] [address] [place] [address] Dr. [place], [place] [id number] Railroad Accountant: Navjot Nelson MD Ketones Ql (U) Negative Normal NEG [facility] Comment on above: Performed By: #### U MICAO, UAX #### [facility] [address] [place] [address] Dr. [place], [place] [phone] Railroad Accountant: Navjot Nelson MD Leukocyte esterase Test strip Ql (U) Negative Normal NEG [facility] Comment on above: Performed By: #### U MICAO, UAX #### [address] [place], [place] [id number] Railroad Accountant: Navjot Nelson MD Nitrite,Ur Negative Normal [facility] Comment on above: Performed By: #### U MICAO, UAX #### [address] [place], [place] [id number] Railroad Accountant: Navjot Nelson MD PH,Ur 7.0 Normal 5.0-9.0 [facility] Comment on above: Performed By: #### U MICAO, UAX #### [facility] [address] [place] [address] Dr. [place], [place] [phone] Railroad Accountant: Navjot Nelson MD Protein Ql (U) Negative Normal NEG [facility] Comment on above: Performed By: #### U MICAO, UAX #### [facility] [address] [place] [address] Dr. [place], [place] [id number] Railroad Accountant: Navjot Nelson MD Spec. Globe,Ur <1.005 Low 1.010-1.020 [facility] Comment on above: Performed By: #### U MICAO, UAX #### [facility] [address] [place] [address] Railroad Accountant: Navjot Nelson MD Urobilinogen,Ur Normal Normal NORM [facility] Comment on above: Performed By: #### U MICAO, UAX #### [facility] [address] [place] [address] Railroad Accountant: Navjot Nelson MD Urinalysis with Reflex to Cu ltureon 05-24-2022 Bilirubin Urine Negative NEGATIVE [facility] Color, UA Yellow Yellow [facility] Glucose, Ur Negative NEGATIVE [facility] Interpretation and review of laboratory results Abnormal [facility] Ketones Ql (U) Negative NEGATIVE [facility] Leukocyte esterase Test strip Ql (U) Negative NEGATIVE [facility] Nitrite, Urine Negative NEGATIVE [facility] pH, UA 7.0 [facility] Protein, UA Negative NEGATIVE [facility] Specific Globe, UA <1.005 Low [facility] Turbidity UA Clear Clear [facility] Urine Hgb Negative NEGATIVE [facility] Urobilinogen, Urine Normal Normal [facility] Urinalysis,Microon 2 ----- Normal [facility] Comment on above: Performed By: #### U MICAO, UAX #### [facility] [address] [place] [address] Railroad Accountant: Navjot Nelson MD Bacteria 1+ Abnormal NONE [facility] Comment on above: Performed By: #### U MICAO, UAX #### [facility] [address] [place] [address] [place] [address] Railroad Accountant: Navjot Nelson MD Epithelial cells LM Ql (Urine sed) 2 TO 5 Normal 0-25 [facility] Comment on above: Performed By: #### U MICAO, UAX #### [facility] [address] [place], [place] [phone] Railroad Accountant: Navjot Nelson MD Urine RBC's 0 TO 2 Normal 0-2 [facility] Comment on above: Performed By: #### U MICAO, UAX #### [facility] [address] [place], [place] [phone] Railroad Accountant: Navjot Nelson MD Urine WBC's 0 TO 2 Normal 0-5 [facility] Comment on above: Performed By: #### U MICAO, UAX #### [facility] [address] [place], [place] 0000383 Railroad Accountant: Navjot Nelson MD Basic Metabolic Panelon Anion gap [Moles/Vol] 13 mmol/L 9 - 17 mmol/L [facility] Calcium [Mass/Vol] 9.4 mg/dL 8.6 - 10. 4 mg/dL [facility] Chloride [Moles/Vol] 100 mmol/L 98 - 10 7 mmol/L [facility] CO2 [Moles/Vol] 24 mmol/L 20 - 31 mmol/L [facility] Creatinine [Mass/Vol] 0.84 mg/dL 0.50 - 0.90 mg/dL [facility] GFR >60 >60 mL/min [facility] GFR Non- >60 >60 mL/min [facility] Glucose [Mass/Vol] 97 mg/dL 70 - 99 mg/dL [facility] Potassium [Moles/Vol] 4.0 mmol/L 3.7 - 5.3 mmol/L [facility] Sodium [Moles/Vol] 137 mmol/L 135 - 144 mmol/L [facility] Urea nitrogen (BldV) [Mass/Vol] 8 mg/dL 6 - 20 mg/dL [facility] Urea nitrogen/Creatinine (Bld) [Mass ratio] 10 [facility] Basic Metabolic Profon 05-03 (cont.) Normal [facility] Comment on above: Result Comment: Aver age GFR for 20-29 years old: 116 mL/min/1.73sq m Chronic Kidney Disease: <60 mL/min/1.73sq m Kidney failure: <15 mL/min/1.73sq m eGFR calculated using average adult body mass. Additional eGFR calculator available at: http://www.[employer]/multiple_crcl_2012.htm Performed By: #### L IP, CDP, CP #### [facility] [address] [place] [address] Dr. [place], [place] [phone] Railroad Accountant: Navjot Nelson MD Anion gap [Moles/Vol] 13 mmol/L Normal 9-17 [facility] Comment on above: Performed By: #### L IP, CDP, CP #### [address] [place], [place] [phone] Railroad Accountant: Navjot Nelson MD BUN/CRE Ratio 10 Normal 9-20 [facility] Comment on above: Performed By: #### L IP, CDP, CP #### [address] [place], [place] [id number] Railroad Accountant: Navjot Nelson MD Calcium [Mass/Vol] 9.4 mg/dL Normal 8.6-10.4 [facility] Comment on above: Performed By: #### L IP, CDP, CP #### [address] [place], [place] [phone] Railroad Accountant: Navjot Nelson MD Chloride [Moles/Vol] 100 mmol/L Normal 98-107 [facility] Comment on above: Performed By: #### L IP, CDP, CP #### [address] [place], [place] 1917283 Railroad Accountant: Navjot Nelson MD CO2 [Moles/Vol] 24 mmol/L Normal 20-31 [facility] Comment on above: Performed By: #### L IP, CDP, CP #### [address] [place] [address] Railroad Accountant: Navjot Nelson MD Creatinine [Mass/Vol] 0.84 mg/dL Normal 0.50-0.90 [facility] Comment on above: Performed By: #### L IP, CDP, CP #### [facility] [address] [place], [place] 9006083 Railroad Accountant: Navjot Nelson MD GFR, Amer >60 Normal >60 [facility] Comment on above: Performed By: #### L IP, CDP, CP #### [facility] [address] [place], [place] [phone] Railroad Accountant: Navjot Nelson MD GFR,non Amer >60 Normal >60 [facility] Comment on above: Performed By: #### L IP, CDP, CP #### [facility] [address] [place], [place] [phone] Railroad Accountant: Navjot Nelson MD Glucose [Mass/Vol] 97 mg/dL Normal 70-99 [facility] Comment on above: Performed By: #### L IP, CDP, CP #### [facility] [address] [place], [place] [phone] Railroad Accountant: Navjot Nelson MD Potassium [Moles/Vol] 4.0 mmol/L Normal 3.7-5.3 [facility] Comment on above: Performed By: #### L IP, CDP, CP #### [facility] [address] [place], [place] [phone] Railroad Accountant: Navjot Nelson MD Sodium [Moles/Vol] 137 mmol/L Normal 135-144 [facility] Comment on above: Performed By: #### L IP, CDP, CP #### [facility] [address] [place], [place] [phone] Railroad Accountant: Navjot Nelson MD Staging: Normal [facility] Comment on above: Result Comment: Stag e 1: Some kidney damage normal GFR Stage 2: Mild kidney damage GFR 60-89 Stage 3: Moderate kidney damage GFR 30-59 Stage 4: Severe kidney damage GFR 15-29 Stage 5: Severe kidney damage GFR <15 ESRD - chronic treatment by dialysis or transplant Performed By: #### L ANNIE CHAPMAN, CP #### [facility] [address] [place] [address] Railroad Accountant: Navjot Nelson MD Urea nitrogen [Mass/Vol] 8 mg/dL Normal 6-20 [facility] Comment on above: Performed By: #### L ANNIE CHAPMAN, CP #### [facility] [address] [place] [address] Railroad Accountant: Navjot Nelson MD CBC with Auto Differentialon 05-03-2022 Absolute Eos # 0.05 [facility] Absolute Immature Granulocyte <0.03 [facility] Absolute Lymph # 1.67 [facility] Absolute Mayes # 0.79 [facility] Basophils (Bld) [#/Vol] 0.06 10*3/uL [facility] Basophils/100 WBC (Bld) 1 % 0 - 2 % [facility] Eosinophils/100 WBC (Bld) 1 % 1 - 4 % [facility] Hematocrit (Bld) [Volume fraction] 43.7 % 36.3 - 47.1 % [facility] Hemoglobin (Bld) [Mass/Vol] 14.8 g/dL 11.9 - 15.1 g/dL [facility] Immature granulocytes/100 WBC (Bld) 0 % 0 [facility] Interpretation and review of laboratory results Abnormal [facility] Lymphocytes/100 WBC (Bld) 23 % Low 24 - 43 % [facility] MCH (RBC) [Entitic mass] 30.4 pg 25.2 - 33.5 pg [facility] MCHC (RBC) [Mass/Vol] 33.9 g/dL 28.4 - 34.8 g/dL [facility] MCV (RBC) [Entitic vol] 89.7 fL 82.6 - 102.9 fL [facility] Monocytes/100 WBC (Bld) 11 % 3 - 12 % [facility] NRBC Automated 0.0 0.0 per 100 WBC [facility] Platelet distribution width (Bld) [Ratio] 12.1 % 11.8 - 14.4 % [facility] Platelet mean volume (Bld) [Entitic vol] 10.7 fL 8.1 - 13.5 fL [facility] Platelets (Bld) [#/Vol] 191 10*3/uL [facility] RBC (Bld) [#/Vol] 4.87 10*6/uL 3.95 - 5.1 1 m/uL [facility] Segmented neutrophils/100 WBC (Bld) 64 % 36 - 65 % [facility] Segs Absolute 4.67 [facility] WBC (Bld) [#/Vol] 7.3 10*3/uL [facility] CBC with Diffon 05-03-2022 Abs. Basophil 0.06 k/uL Normal 0.00-0.20 [facility] Comment on above: Performed By: #### L ANNIE CHAPMAN, CP #### [facility] [address] [place] [address] [place] [phone] Railroad Accountant: Navjot Nelson MD Abs.Imm.Granulocyte <0.03 Normal 0.00-0.30 [facility] Comment on above: Performed By: #### L ANNIE CHAPMAN, CP #### [facility] [address] [place] [address] [place]. [place] [phone] Railroad Accountant: Navjot Nelson MD Abs.Neutrophil (Seg) 4.67 k/uL Normal 1.50-8.10 [facility] Comment on above: Performed By: #### L ANNIE CHAPMAN, CP #### [address] [place] [address] Railroad Accountant: Navjot Nelson MD Basophils/100 WBC (Bld) 1 % Normal 0-2 [facility] Comment on above: Performed By: #### L ANNIE CHAPMAN, CP #### [facility] [address] [place], [place] [phone] Railroad Accountant: Navjot Nelson MD Eosinophils (Bld) [#/Vol] 0.05 10*3/uL Normal 0.00-0.44 [facility] Comment on above: Performed By: #### L IP, CDP, CP #### [address] [place], [facility] Railroad Accountant: Navjot Nelson MD Eosinophils/100 WBC (Bld) 1 % Normal 1-4 [facility] Comment on above: Performed By: #### L IP, CDP, CP #### [address] [place], [facility]83 Railroad Accountant: Navjot Nelson MD Erythrocyte distribution width (RBC) [Ratio] 12.1 % Normal 11.8-14.4 [facility] Comment on above: Performed By: #### L IP, CDP, CP #### [address] [place], [facility]83 Railroad Accountant: Navjot Nelson MD Hematocrit (Bld) [Volume fraction] 43.7 % Normal 36.3-47.1 [facility] Comment on above: Performed By: #### L IP, CDP, CP #### [address] [place], [facility]83 Railroad Accountant: Navjot Nelson MD Hemoglobin (Bld) [Mass/Vol] 14.8 g/dL Normal 11.9-15.1 [facility] Comment on above: Performed By: #### L IP, CDP, CP #### [address] [place] [phone] Railroad Accountant: Navjot Nelson MD Immature granulocytes/100 WBC (Bld) 0 % Normal 0 [facility] Comment on above: Performed By: #### L IP, CDP, CP #### [address] [place] [address] Railroad Accountant: Navjot Nelson MD Lymphocytes (Bld) [#/Vol] 1.67 10*3/uL Normal 1.10-3.70 [facility] Comment on above: Performed By: #### L IP, CDP, CP #### [address] [place] [address] Railroad Accountant: Navjot Nelson MD Lymphocytes/100 WBC (Bld) 23 % Low 24-43 [facility] Comment on above: Performed By: #### L IP, CDP, CP #### [address] [place] [address] Railroad Accountant: Navjot Nelson MD MCH (RBC) [Entitic mass] 30.4 pg Normal 25.2-33.5 [facility] Comment on above: Performed By: #### L IP, CDP, CP #### [address] [place] [address] Railroad Accountant: Navjot Nelson MD MCHC (RBC) [Mass/Vol] 33.9 g/dL Normal 28.4-34.8 [facility] Comment on above: Performed By: #### L IP, CDP, CP #### [address] [place] [id number] Railroad Accountant: Navjot Nelson MD MCV (RBC) [Entitic vol] 89.7 fL Normal 82.6-102.9 [facility] Comment on above: Performed By: #### L IP, CDP, CP #### [address] [place], [facility]83 [employer] Accountant: Navjot Nelson MD Monocytes (Bld) [#/Vol] 0.79 10*3/uL Normal 0.10-1.20 [facility] Comment on above: Performed By: #### L IP, CDP, CP #### [address] [place], [facility]83 [employer] Accountant: Navjot Nelson MD Monocytes/100 WBC (Bld) 11 % Normal 3-12 [facility] Comment on above: Performed By: #### L IP, CDP, CP #### [facility] [address] [place], [place] [id number] Railroad Accountant: Navjot Nelson MD Neutrophil (Seg) 64 % Normal 36-65 [facility] Comment on above: Performed By: #### L IP, CDP, CP #### [facility] [address] [place], [place] [id number] Railroad Accountant: Navjot Nelson MD NRBC Automated 0.0 per 100 WBC Normal 0.0 [facility] Comment on above: Performed By: #### L IP, CDP, CP #### [address] [place], [facility]83 [employer] Accountant: Navjot Nelson MD Platelet mean volume (Bld) [Entitic vol] 10.7 fL Normal 8.1-13.5 [facility] Comment on above: Performed By: #### L IP, CDP, CP #### [address] [place], [place] [id number] Railroad Accountant: Navjot Nelson MD Platelets (Bld) [#/Vol] 191 10*3/uL Normal 138-453 [facility] Comment on above: Performed By: #### L IP, CDP, CP #### [address] [place], [place] [id number] Railroad Accountant: Navjot Nelson MD RBC (Bld) [#/Vol] 4.87 10*6/uL Normal 3.95-5.11 [facility] Comment on above: Performed By: #### L IP, CDP, CP #### [address] [place], [place] [id number] Railroad Accountant: Navjot Nelson MD WBC (Bld) [#/Vol] 7.3 10*3/uL Normal 3.5-11.3 [facility] Comment on above: Performed By: #### L ANNIE CHAPMAN, CP #### [facility] [address] [place] [address] Railroad Accountant: Navjot Nelson MD Flu A/B Ag Detectionon 05-03 Flu A Ag Detection Negative Normal NEG [facility] Comment on above: Result Comment: for Influenza A Antigen Performed By: #### L ARI, ANNIE, CP #### [facility] [address] [place], [place] [id number] Railroad Accountant: Navjot Nelson MD Flu B Ag Detection Negative Normal NEG [facility] Comment on above: Result Comment: for Influenza B Antigen. Performed By: #### L ANNIE CHAPMAN, CP #### [facility] [address] [place] [address] Railroad Accountant: Navjot Nelson MD Laboratory - Chemistry and C hemistry - challengeon 05-03-2022 GFR/1.73 sq M.predicted MDRD (S/P/Bld) [Vol rate/Area] [facility] Comment on above: Average GFR for 20-2 9 years old: 116 mL/min/1.73sq m Chronic Kidney Disease: <60 mL/min/1.73sq m Kidney failure: <15 mL/min/1.73sq m eGFR calculated using average adult body mass. Additional eGFR calculator available at: http://www.KAYAK.Agribots/multiple_crcl_2012.htm Stage 1: Some kidney damage normal GFR Stage 2: Mild kidney damage GFR 60-89 Stage 3: Moderate kidney damage GFR 30-59 Stage 4: Severe kidney damage GFR 15-29 Stage 5: Severe kidney damage GFR <15 ESRD - chronic treatment by dialysis or transplant Microscopic [facility] Bacteria, UA TRACE Abnormal None [facility] Epithelial Cells UA 0 TO 2 [facility] [employer] Interpretation and review of laboratory results Abnormal [facility] RBC, UA 0 TO 2 [facility] WBC, UA 0 TO 2 [facility] Rapid influenza A/B antigens on 05-03-2022 Flu A Antigen Negative NEGATIVE [facility] Comment on above: for Influenza A Anti gen Flu B Antigen Negative NEGATIVE [facility] Comment on above: for Influenza B Anti gen. [facility] [id number] 05-03-2022 SARS-CoV-2 (COVID-19) RNA THALIA+probe Ql (Unsp spec) Not detected Normal [facility] Comment on above: Result Comment: Rapid [...] management decisions. Fact sheet for Healthcare Providers: https://www.fda.gov/media/547419/download Fact sheet for Patients: https://www.fda.gov/media/425164/download Methodology: Isothermal Nucleic Acid Amplification Performed By: #### L ARI, ANNIE, CP #### [address] [place] [address] Railroad Accountant: Navjot Nelson MD SARS-CoV-2 NAAT (Rapid)on SARS-CoV-2 (COVID-19) RNA THALIA+probe Ql (Unsp spec) Not detected Not Detected [facility] Comment on above: Rapid NAAT: The specimen [...] management decisions. Fact sheet for Healthcare Providers: https://www.fda.gov/media/481545/download Fact sheet for Patients: https://www.fda.gov/media/601137/download Methodology: Isothermal Nucleic Acid Amplification Specimen Description .NASOPHARYNGEAL SWAB [facility] Troponinon 05-03-2022 Troponin, High Sens <6 Normal 0-14 [facility] Comment on above: Result Comment: High Sensitivity Troponin values cannot be compared with other Troponin methodologies. Patients with high levels of Biotin oral intake (i.e >5mg/day) may have falsely decreased Troponin levels. Samples collected within 8 hours of biotin intake may require additional information for diagnosis. Performed By: #### L ANNIE CHAPMAN, CP #### [facility] [address] [place] [address] Railroad Accountant: Navjot Nelson MD Troponin, High Sensitivity <6 0 - 14 ng/L [facility] Comment on above: High Sensitivity Troponin values cannot be compared with other Troponin methodologies. Patients with high levels of Biotin oral intake (i.e >5mg/day) may have falsely decreased Troponin levels. Samples collected within 8 hours of biotin intake may require additional information for diagnosis. [facility] UA w/Reflex Cultureon 2021 Bilirubin, SemiQt,Ur Negative Normal NEG [facility] Comment on above: Performed By: #### L ANNIE CHAPMAN, CP #### [facility] [address] [place] [address] Railroad Accountant: Navjot Nelson MD Blood, Urine Negative Normal NEG [facility] Comment on above: Performed By: #### L ANNIE CHAPMAN, CP #### [facility] [address] [place], [place] [id number] Railroad Accountant: Navjot Nelson MD Clarity (U) Clear Normal CLEAR [facility] Comment on above: Performed By: #### L IP, CDP, CP #### [address] [place], [place] [phone] Railroad Accountant: Navjot Nelson MD Color (U) Yellow Normal YEL [facility] Comment on above: Performed By: #### L IP, CDP, CP #### [facility] [address] [place] [address] Dr. [place], [place] [phone] Railroad Accountant: Navjot Nelson MD Glucose Ql (U) Negative Normal NEG [facility] Comment on above: Performed By: #### L IP, CDP, CP #### [address] [place], [place] [phone] Railroad Accountant: Navjot Nelson MD Ketones Ql (U) Negative Normal NEG [facility] Comment on above: Performed By: #### L IP, CDP, CP #### [address] [place], [place] [id number] Railroad Accountant: Navjot Nelson MD Leukocyte esterase Test strip Ql (U) Negative Normal NEG [facility] Comment on above: Performed By: #### L IP, CDP, CP #### [address] [place], [place] [id number] Railroad Accountant: Navjot Nelson MD Nitrite,Ur Negative Normal NEG [facility] Comment on above: Performed By: #### L IP, CDP, CP #### [address] [place], [place] [id number] Railroad Accountant: Navjot Nelson MD PH,Ur 7.0 Normal 5.0-9.0 [facility] Comment on above: Performed By: #### L IP, CDP, CP #### [address] [place] [id number] Railroad Accountant: Navjot Nelson MD Protein Ql (U) Negative Normal NEG [facility] Comment on above: Performed By: #### L IP, CDP, CP #### [facility] [address] [place], [place] [id number] Railroad Accountant: Navjot Nelson MD Spec. Globe,Ur <1.005 Low 1.010-1.020 [facility] Comment on above: Performed By: #### L IP, CDP, CP #### [facility] [address] [place], [place] [id number] Railroad Accountant: Navjot Nelson MD Urobilinogen,Ur Normal Normal NORM [facility] Comment on above: Performed By: #### L IP, CDP, CP #### [facility] [address] [place], [place] [id number] Railroad Accountant: Navjot Nelson MD Urinalysis with Reflex to Cu ltureon 05-03-2022 Bilirubin Urine Negative NEGATIVE [facility] Color, UA Yellow Yellow [facility] Glucose, Ur Negative NEGATIVE [facility] Interpretation and review of laboratory results Abnormal [facility] Ketones Ql (U) Negative NEGATIVE [facility] Leukocyte esterase Test strip Ql (U) Negative NEGATIVE [facility] Nitrite, Urine Negative NEGATIVE [facility] pH, UA 7.0 [facility] Protein, UA Negative NEGATIVE [facility] Specific Globe, UA <1.005 Low [facility] Turbidity UA Clear Clear [facility] Urine Hgb Negative NEGATIVE [facility] Urobilinogen, Urine Normal Normal [facility] Urinalysis,Microon 2 ----- Normal [facility] Comment on above: Performed By: #### L IP, CDP, CP #### [facility] [address] [place], [place] [phone] Railroad Accountant: Navjot Nelson MD Bacteria TRACE Abnormal NONE [facility] Comment on above: Performed By: #### L IP, CDP, CP #### [facility] [address] [place] [address] Railroad Accountant: Navjot Nelson MD Epithelial cells LM Ql (Urine sed) 0 TO 2 Normal 0-25 [facility] Comment on above: Performed By: #### L IP, CDP, CP #### [facility] [address] [place], [place] [id number] Railroad Accountant: Navjot Nelson MD Urine RBC's 0 TO 2 Normal 0-2 [facility] Comment on above: Performed By: #### L IP CDP, CP #### [facility] [address] [place], [place] [id number] Railroad Accountant: Navjot Nelson MD Urine WBC's 0 TO 2 Normal 0-5 [facility] Comment on above: Performed By: #### L IP, CDP, CP #### [facility] [address] [place] [address] Railroad Accountant: Navjot Nelson MD XR CHEST PORTABLEon 05-03-20 [...] Presley Kirk MD 05/03/22 Final result Normal [facility] No acute process. MHPN RIS CONSOLIDATED EXAMINATION: [...] structures grossly intact. IMPRESSION: No acute process. [facility] [employer] Phone: Radiology Study observation (narrative) [employer] Phone: XR CHEST PORTABLEOrdered By: Presley Kirk on 05-03-2022 [facility] [employer] Phone: HCG,Qualitative Serumon 02-26 HCG,Qualitative Serum Negative Normal [facility] Comment on above: Result Comment: PERF ORMED BY: [place] [address] PATHOLOGIST [employer]ER [employer]PER ARSENIO OLEARY M.D. Performed By: #### H CGQUAL #### [address] [id number] 03-23-2022 SARS-CoV-2 (COVID-19) RNA THALIA+probe Ql (Unsp spec) Normal [facility] Comment on above: Performed By: #### C OVID #### [facility] [employer] [address] [place] [address] Railroad Accountant: Murali Candelario MD [facility] [address] [place] [address] Dr. [place] [phone] Railroad Accountant: Navjot Nelson MD SARS-CoV-2 (COVID-19) RNA THALIA+probe Ql (Unsp spec) Not detected Normal [facility] Comment on above: Result Comment: The specimen is NEGATIVE for SARS-CoV-2, the novel coronavirus associated with COVID-19. A negative result does not rule out COVID-19. Trevon SARS-CoV-2 for use on the Trevon [employer] is a real-time RT-PCR test intended [...] this assay. Fact sheet for Healthcare Providers: https://www.fda.gov/media/813674/download Fact sheet for Patients: https://www.fda.gov/media/002421/download METHODOLOGY: RT-PCR Performed By: #### C OVID #### [address] [id number] Railroad Accountant: Murali Candelario MD [address] [place] [address] Railroad Accountant: Navjot Nelson MD [id number] 03-22-2022 SARS-CoV-2 (COVID-19) RNA THALIA+probe Ql (Unsp spec) .NASOPHARYNGEAL SWAB Normal [facility] Comment on above: Performed By: #### C OVID #### [address] [id number] Railroad Accountant: Murali Candelario MD [address] [place] [address] Railroad Accountant: Navjot Nelson MD [id number] 03-09-2022 SARS-CoV-2 (COVID-19) RNA THALIA+probe Ql (Unsp spec) Normal [facility] Comment on above: Performed By: #### L IP, CDP, CP #### [address] [place] [place] [address] Railroad Accountant: Navjot Nelson MD SARS-CoV-2 (COVID-19) RNA THALIA+probe Ql (Unsp spec) Not detected Normal [facility] Comment on above: Result Comment: The specimen is NEGATIVE for SARS-CoV-2, the novel coronavirus associated with COVID-19. A negative result does not rule out COVID-19. Trevon SARS-CoV-2 for use on the [employer] is a real-time RT-PCR test intended [...] this assay. Fact sheet for Healthcare Providers: https://www.fda.gov/media/551478/download Fact sheet for Patients: https://www.fda.gov/media/631002/download METHODOLOGY: RT-PCR Performed By: #### L ANNIE CHAPMAN, CP #### [address] [place] [address] Railroad Accountant: Navjot Nelson MD [id number] 03-08-2022 SARS-CoV-2 (COVID-19) RNA THALIA+probe Ql (Unsp spec) .NASOPHARYNGEAL SWAB Normal [facility] Comment on above: Performed By: #### L ANNIE CHAPMAN, CP #### [facility] [address] [place] [address] Railroad Accountant: Navjot Nelson MD CT ABD/PELV W CONon [...] NELY ARITA Date: 2021-12-04 22:06 Normal [facility] AMYLASEon 12-04-2021 Amylase [Catalytic activity/Vol] 50 U/L Normal 31-110 [facility] Comment on above: Performed By: #### C MP, ROBIN, LIPA #### [facility] [address] [address] [address] Balta Parson CBC AUTO DIFFon 12-04-2021 BASO # 0.1 103/ul Normal 0.0-0.1 [facility] Comment on above: Performed By: #### C BC #### [facility] [address] [place] [address] Dr. Balta Parson Basophils/100 WBC (Bld) 0.8 % Normal 0.2-2.0 [facility] Comment on above: Performed By: #### C BC #### [facility] [address] [place] [address] Dr. Balta Parson EO # 0.4 103/ul Normal 0.0-0.7 [facility] Comment on above: Performed By: #### C BC #### [facility] [address] [place] [address] Dr. Balta Parson Eosinophils/100 WBC (Bld) 3.2 % Normal 0.9-7.0 [facility] Comment on above: Performed By: #### C BC #### [facility] [address] [place] [address] Dr. Balta Parson Erythrocyte distribution width (RBC) [Ratio] 12.8 % Normal 11.0-15.0 [facility] Comment on above: Performed By: #### C BC #### [facility] [address] [place] [address] Dr. Balta Parson Hematocrit (Bld) [Volume fraction] 42.0 % Normal 36.0-48.0 [facility] Comment on above: Performed By: #### C BC #### [facility] [address] [place] [address] Dr. Balta Parson Hemoglobin (Bld) [Mass/Vol] 13.9 g/dL Normal 12.0-16.0 [facility] Comment on above: Performed By: #### C BC #### [facility] [address] [place] [address] Dr. Balta Parson IG # 0.05 10e3/ul Critically high 0.00-0.03 [facility] Comment on above: Performed By: #### C BC #### [facility] [address] [place] [address] Dr. Balta Parson IG % 0.4 % Normal 0.0-0.5 [facility] Comment on above: Performed By: #### C BC #### [facility] [address] [address] [address] Balta Parson LYMPH # 3.9 103/ul Critically high 1.2-3.8 [facility] Comment on above: Performed By: #### C BC #### [facility] [address] [address] [address] Balta Parson Lymphocytes/100 WBC (Bld) 30.4 % Normal 20.5-60.0 [facility] Comment on above: Performed By: #### C BC #### [facility] [address] [place] [address] Dr. Balta Pasron MANUAL DIFF REQ NO Normal [facility] Comment on above: Performed By: #### C BC #### [facility] [address] [place] [address] Dr. Balta Parson MCH (RBC) [Entitic mass] 30.5 pg Normal 26.7-34.0 [facility] Comment on above: Performed By: #### C BC #### [facility] [address] [place] [address] Dr. Balta Parson MCHC (RBC) [Mass/Vol] 33.1 g/dL Normal 29.9-35.2 [facility] Comment on above: Performed By: #### C BC #### [facility] [address] [place] [address] Dr. Balta Parson MCV (RBC) [Entitic vol] 92.3 fL Normal 81.0-99.0 [facility] Comment on above: Performed By: #### C BC #### [facility] [address] [place] [address] Dr. Balta Parson MONO # 0.8 103/ul Normal 0.3-0.8 [facility] Comment on above: Performed By: #### C BC #### [facility] [address] [place] [address] Dr. Balta Parson Monocytes/100 WBC (Bld) 6.6 % Normal 1.7-12.0 [facility] Comment on above: Performed By: #### C BC #### [facility] [address] [place] [address] Dr. Balta Parson NEUT # 7.5 103/ul Critically high 1.4-6.5 [facility] Comment on above: Performed By: #### C BC #### [facility] [address] [place] [address] Dr. Balta Parson Neutrophils/100 WBC (Bld) 58.6 % Normal 43.0-75.0 [facility] Comment on above: Performed By: #### C BC #### [facility] [address] [place] [address] Dr. Balta Parson Platelet mean volume (Bld) [Entitic vol] 10.5 fL Normal 9.5-13.5 [facility] Comment on above: Performed By: #### C BC #### [facility] [address] [place] [address] Dr. Balta Parson PLT 230 103/ul Normal 150-450 [facility] Comment on above: Performed By: #### C BC #### [facility] [address] [place] [address] Dr. Balta Parson RBC 4.55 106/ul Normal 4.20-5.40 [facility] Comment on above: Performed By: #### C BC #### [facility] [address] [place] [address] Dr. Balta Parson WBC 12.8 103/ul Critically high 4.0-11.0 [facility] Comment on above: Performed By: #### C BC #### [facility] [address] [place] [address] Dr. Balta Parson ER URINE PROFILEon 2 Bilirubin Ql (U) Negative Normal NEGATIVE [facility] Comment on above: Performed By: #### E RUR #### [facility] [address] [place] [address] Dr. Balta Parson Clarity (U) CLEAR Normal CLEAR [facility] Comment on above: Performed By: #### E RUR #### [facility] [address] [place] [address] Dr. Balta Parson Color (U) LT. YELLOW Normal YELLOW [facility] Comment on above: Performed By: #### E RUR #### [facility] [address] [address] [address] Balta FLOYD A micrscopic examination will be performed if indicated. Normal [facility] Comment on above: Performed By: #### E RUR #### [facility] [address] [place] [address] Dr. Balta Parson Glucose Ql (U) Negative Normal NEGATIVE [facility] Comment on above: Performed By: #### E RUR #### [facility] [address] [place] [address] Dr. Balta Parson Hemoglobin Ql (U) Negative Normal NEGATIVE [facility] Comment on above: Performed By: #### E RUR #### [facility] [address] [place] [address] Dr. Balta Parson Ketones Ql (U) Negative Normal NEGATIVE [facility] Comment on above: Performed By: #### E RUR #### [facility] [address] [place] [address] Dr. Balta Parson LEUKOCYTES Negative Normal NEGATIVE [facility] Comment on above: Performed By: #### E RUR #### [facility] [address] [place] [address] Dr. Balta Parson Nitrite Ql (U) Negative Normal NEGATIVE [facility] Comment on above: Performed By: #### E RUR #### [facility] [address] [place] [address] Dr. Balta Parson pH (U) 7.0 [pH] Normal 5-9 [facility] Comment on above: Performed By: #### E RUR #### [facility] [address] [place] [address] Dr. Balta Parson SPEC GRAVITY 1.010 Normal 1.005-<=1.[address] [facility] Comment on above: Performed By: #### E RUR #### [facility] [address] [place] [address] Dr. Balta Parson UA PROTEIN Negative Normal NEGATIVE/ TRACE [facility] Comment on above: Performed By: #### E RUR #### [facility] [address] [place] [address] Dr. Balta Parson UR MICRO IND NOT INDICATED Normal [facility] Comment on above: Performed By: #### E RUR #### [facility] [address] [place] [address] Dr. Balta Parson Urobilinogen Qn (U) 0.2 {Indira'U}/dL Normal 0.2 - 1. 0 [facility] Comment on above: Performed By: #### E RUR #### [facility] [address] [place] [address] Dr. Balta Parson LIPASEon 12-04-2021 Lipase [Catalytic activity/Vol] 124.0 U/L Normal 23.0-300.0 [facility] Comment on above: Performed By: #### C MP ROBIN, LIPA #### [facility] [address] [place] [address] Dr. Balta Parson PREG HCG QUALon 12-04-2021 , QUAL Negative Normal NEGATIVE [facility] Comment on above: Performed By: #### P REG #### [facility] [address] [place] [address] Dr. Balta Parson PROF 14(COMP METB)on 022 Albumin [Mass/Vol] 3.9 g/dL Normal 3.5-5.0 [facility] Comment on above: Performed By: #### C MP ROBIN, LIPA #### [facility] [address] [place] [address] Dr. Balta Parson Albumin/Globulin [Mass ratio] 1.0 {ratio} Normal [facility] Comment on above: Performed By: #### C MP, ROBIN, LIPA #### [facility] [address] [place] [address] Dr. Balta Parson ALP [Catalytic activity/Vol] 90 U/L Normal 38-126 [facility] Comment on above: Performed By: #### C MP, ROBIN, LIPA #### [facility] [address] [place] [address] Dr. Balta Parson ALT [Catalytic activity/Vol] 25 U/L Normal 9-52 [facility] Comment on above: Performed By: #### C ROBIN ALFORD LIPA #### [facility] [address] [place] [address] Dr. Balta Parson Anion gap [Moles/Vol] 10.7 mmol/L Normal Th e [facility] Comment on above: Performed By: #### C ROBIN ALFORD LIPA #### [facility] [address] [place] [address] Dr. Balta Parson AST [Catalytic activity/Vol] 12 U/L Critically low 14-36 [facility] Comment on above: Performed By: #### C ROBIN ALFORD LIPA #### [facility] [address] [place] [address] Dr. Balta Parson Bilirubin [Mass/Vol] 0.3 mg/dL Normal 0.2-1.3 [facility] Comment on above: Performed By: #### C ROBIN ALFORD LIPA #### [facility] [address] [place] [address] Dr. Balta Parson Calcium [Mass/Vol] 8.9 mg/dL Normal 8.4-10.2 [facility] Comment on above: Performed By: #### C ROBIN ALFORD LIPA #### [facility] [address] [place] [address] Dr. Balta Parson Chloride [Moles/Vol] 102 mmol/L Normal 98-107 [facility] Comment on above: Performed By: #### C ROBIN ALFORD LIPA #### [facility] [address] [place] [address] Dr. Balta Parson CO2 [Moles/Vol] 28.4 mmol/L Normal 22.0-30.0 [facility] Comment on above: Performed By: #### C ROBIN ALFORD LIPA #### [facility] [address] [place] [address] Dr. Balta Parson Creatinine [Mass/Vol] 0.77 mg/dL Normal 0.52-1.04 [facility] Comment on above: Performed By: #### C MP, ROBIN, LIPA #### [facility] [address] [address] [address] Balta Parson EGFR-AF CZECH >60 Normal >=60 [facility] Comment on above: Performed By: #### C ROBIN ALFORD, LIPA #### [facility] [address] [address] [address] Balta Parson EGFR-NON AF CZECH >60 Normal >=60 [facility] Comment on above: Performed By: #### C ROBIN ALFORD, LIPA #### [facility] [address] [address] [address] Balta Parson Globulin (S) [Mass/Vol] 3.8 g/dL Normal [facility] Comment on above: Performed By: #### C ROBIN ALFORD, LIPA #### [facility] [address] [address] [address] Balta Parson Glucose [Mass/Vol] 93 mg/dL Normal 74-106 [facility] Comment on above: Performed By: #### C ROBIN ALFORD, LIPA #### [facility] [address] [address] [address] Balta Parson Potassium [Moles/Vol] 4.1 mmol/L Normal 3.4-5.0 [facility] Comment on above: Performed By: #### C ROBIN ALFORD, LIPA #### [facility] [address] [address] [address] Balta Parson Protein [Mass/Vol] 7.7 g/dL Normal 6.1-8.2 [facility] Comment on above: Performed By: #### C ROBIN ALFORD, LIPA #### [facility] [address] [address] [address] Balta Parson Sodium [Moles/Vol] 137 mmol/L Normal 137-145 [facility] Comment on above: Performed By: #### C ROBIN ALFORD, LIPA #### [facility] [address] [address] [address] Balta Parson Urea nitrogen [Mass/Vol] 14.0 mg/dL Normal 7.0-17.0 [facility] Comment on above: Performed By: #### C ROBIN ALFORD LIPA #### [facility] [address] [place], [place] [address] Dr. Balta Parson Urea nitrogen/Creatinine [Mass ratio] 18.2 mg/mg Normal [facility] Comment on above: Performed By: #### C ROBIN ALFORD LIPA #### [facility] [address] [id number] Balta Parson Basic Metabolic PanelOrdered By: Naresh Anaya on 08-04-2021 Anion gap [Moles/Vol] 10 mmol/L 9 - 17 mmol/L [employer] Phone: Calcium [Mass/Vol] 9.0 mg/dL 8.6 - 10. 4 mg/dL [employer] Phone: Chloride [Moles/Vol] 106 mmol/L 98 - 10 7 mmol/L [employer] Phone: CO2 [Moles/Vol] 23 mmol/L 20 - 31 mmol/L [employer] Phone: Creatinine [Mass/Vol] 0.67 mg/dL 0.50 - 0.90 mg/dL [employer] Phone: GFR >60 >60 mL/min [employer]Pulse Phone: GFR Non- >60 >60 mL/min [employer] Phone: Glucose [Mass/Vol] 76 mg/dL 70 - 99 mg/dL [employer] Phone: Potassium [Moles/Vol] 3.8 mmol/L 3.7 - 5.3 mmol/L [employer] Phone: Sodium [Moles/Vol] 139 mmol/L 135 - 144 mmol/L [employer] Phone: Urea nitrogen (BldV) [Mass/Vol] 10 mg/dL 6 - 20 mg/dL [employer] Phone: Urea nitrogen/Creatinine (Bld) [Mass ratio] 15 [employer] Work Phone: [employer] Work Phone: CBC Auto DifferentialOrdered By: Naresh Anaya on 08-04-2021 Absolute Eos # 0.16 [employer] [facility] Work Phone: Absolute Immature Granulocyte <0.03 [employer] Work Phone: Absolute Lymph # 2.57 [employer] [facility] Work Phone: Absolute Mayes # 0.63 [employer] [facility] Work Phone: Basophils (Bld) [#/Vol] 0.05 10*3/uL [employer] Work Phone: Basophils/100 WBC (Bld) 1 % 0 - 2 % [employer] Phone: Differential Type NOT REPORTED [employer] Phone: Eosinophils/100 WBC (Bld) 2 % 1 - 4 % [employer] Phone: Hematocrit (Bld) [Volume fraction] 42.4 % 36.3 - 47.1 % [employer] Phone: Hemoglobin.gastrointes tinal spec 1 Ql (Stl) 14.2 g/dL 11.9 - 15.1 g/dL [employer] Phone: Immature granulocytes/100 WBC (Bld) 0 % 0 [employer] Phone: Lymphocytes/100 WBC (Bld) 37 % 24 - 43 % [employer] Phone: MCH (RBC) [Entitic mass] 30.3 pg 25.2 - 33.5 pg [employer] Phone: MCHC (RBC) [Mass/Vol] 33.5 g/dL 28.4 - 34.8 g/dL [employer] Phone: MCV (RBC) [Entitic vol] 90.6 fL 82.6 - 102.9 fL [employer] Work Phone: Monocytes/100 WBC (Bld) 9 % 3 - 12 % [employer] Phone: NRBC Automated 0.0 0.0 per 100 WBC [employer] Phone: Platelet distribution width (Bld) [Ratio] 12.0 % 11.8 - 14.4 % [employer] Phone: Platelet Estimate NOT REPORTED [employer] Phone: Platelet mean volume (Bld) [Entitic vol] 10.6 fL 8.1 - 13.5 fL [employer] Phone: Platelets (Bld) [#/Vol] 195 10*3/uL [employer] Phone: RBC (Bld) [#/Vol] 4.68 10*6/uL 3.95 - 5.1 1 m/uL [employer] Work Phone: RBC (Bld) [#/Vol] NOT REPORTED [employer] Phone: Segmented neutrophils/100 WBC (Bld) 51 % 36 - 65 % [employer] Phone: Segs Absolute 3.51 [employer] Work Phone: WBC (Bld) [#/Vol] 6.9 10*3/uL [employer] Work Phone: WBC (Bld) [#/Vol] NOT REPORTED [employer] Phone: [employer] Phone: D-Dimer, QuantitativeOrdered By: Naresh Anaya on 08-04-2021 D-Dimer, Quant 0.27 [employer] Work Phone: Comment on above: When combined [...] more prevalent in patients with distal DVT. [employer] Phone: HCG Qualitative, SerumOrdere d By: Jose Antonio Quijano on 08-04-2021 hCG Qual Negative NEGATIVE [employer] Phone: Comment on above: Specimens with hCG l evels near the threshold of the test (25 mIU/mL) may give a negative or indeterminate result. In such cases, another test should be performed with a new specimen in 48-72 hours. If early is suspected clinically in this setting, correlation with quantitative serum b-hCG level is suggested. [employer] has confirmed the use of plasma for this test. This has not been cleared or approved by the U.S. Food and Drug Administration. The FDA has determined that such clearance is not necessary. [employer] Phone: Hepatic Function PanelOrdere d By: Jose Antonio Quijano on 08-04-2021 Albumin [Mass/Vol] 4.3 g/dL 3.5 - 5.2 g/dL [employer] Phone: Albumin/Globulin [Mass ratio] 1.4 {ratio} [employer] Phone: ALP (Bld) [Catalytic activity/Vol] 89 U/L 35 - 104 U/L [employer] Phone: ALT [Catalytic activity/Vol] 13 U/L 5 - 33 U/L [employer] Phone: AST [Catalytic activity/Vol] 15 U/L <32 [employer] Phone: Bilirubin [Mass/Vol] 0.41 mg/dL 0.3 - 1 .2 mg/dL [employer] Phone: Bilirubin, Indirect CANNOT BE CALCULATED 0.00 - 1.00 mg/dL [employer] Phone: Bilirubin.indirect [Mass/Vol] mg/dL <0.31 mg/dL [employer] Phone: Free PSA/Total PSA [Mass fraction] 7.4 g/dL 6.4 - 8.3 g/dL [employer] Phone: Globulin NOT REPORTED 1.5 - 3.8 g/dL [employer] Phone: Laboratory - Chemistry and C hemistry - challengeOrdered By: Naresh Anaya on 08-04-2021 GFR/1.73 sq M.predicted MDRD (S/P/Bld) [Vol rate/Area] [employer] Phone: Comment on above: Average GFR for 20-2 9 years old: 116 mL/min/1.73sq m Chronic Kidney Disease: <60 mL/min/1.73sq m Kidney failure: <15 mL/min/1.73sq m eGFR calculated using average adult body mass. Additional eGFR calculator available at: http://www.KAYAK.Agribots/multiple_crcl_2012.htm Stage 1: Some kidney damage normal GFR Stage 2: Mild kidney damage GFR 60-89 Stage 3: Moderate kidney damage GFR 30-59 Stage 4: Severe kidney damage GFR 15-29 Stage 5: Severe kidney damage GFR <15 ESRD - chronic treatment by dialysis or transplant LipaseOrdered By: Marv on 08-04-2021 Lipase [Catalytic activity/Vol] 43 U/L 13 - 60 U/L [employer] Phone: No Panel InformationOrdered By: Jose Antonioava Quijano on 08-04-2021 [employer] Phone: SPECIMEN REJECTIONOrdered By : Jose Antonio Cooliss on 08-04-2021 - NOT REPORTED [employer] Phone: Ordered Test DIME [employer] Phone: Reason for Rejection Unable to perform testing: Specimen quantity not sufficient. [employer] Phone: Specimen source Nom (Unsp spec) .BLOOD [employer] Phone: [employer] Phone: TSH with ReflexOrdered By: Leslie delcid Samm on 08-04-2021 Interpretation and review of laboratory results Abnormal [employer] Phone: TSH Qn 0.09 m[IU]/L Low [employer] Phone: [employer] Phone: TroponinOrdered By: Naresh Clements ches on 08-04-2021 Troponin Interp NOT REPORTED [employer] Work Phone: Troponin T NOT REPORTED <0.03 ng/mL [employer] Work Phone: Troponin, High Sensitivity <6 0 - 14 ng/L [employer] Phone: Comment on above: High Sensitivity Troponin values cannot be compared with other Troponin methodologies. Patients with high levels of Biotin oral intake (i.e >5mg/day) may have falsely decreased Troponin levels. Samples collected within 8 hours of biotin intake may require additional information for diagnosis. [employer] Phone: XR CHEST PORTABLEOrdered By: Naresh Anaya on 08-04-2021 No acute process. [employer] Work Phone: EXAMINATION: ONE XRAY VIEW OF THE CHEST 08/04/2021 11:44 am COMPARISON: January 04, 2016 HISTORY: ORDERING SYSTEM PROVIDED HISTORY: CP TECHNOLOGIST PROVIDED HISTORY: CP FINDINGS: The lungs are without acute focal process. There is no effusion or pneumothorax. The cardiomediastinal silhouette is without acute process. The osseous structures are without acute process. [employer] Phone: Yuan, [facility] Incoming Radiant Results From [employer] - 08/04/2021 11:56 AM EDT EXAMINATION: ONE XRAY VIEW OF THE CHEST 08/04/2021 11:44 am COMPARISON: January 04, 2016 HISTORY: ORDERING SYSTEM PROVIDED HISTORY: CP TECHNOLOGIST PROVIDED HISTORY: CP FINDINGS: The lungs are without acute focal process. There is no effusion or pneumothorax. The cardiomediastinal silhouette is without acute process. The osseous structures are without acute process. IMPRESSION: No acute process. [employer] Phone: [employer] Phone: XR LUMBAR SPINE (2-3 VIEWS)O rdered By: Jose Antonio Quijano on 08-04-2021 Unremarkable examination of the lumbar spine. [employer] Phone: EXAMINATION: THREE XRAY VIEWS OF THE LUMBAR SPINE 08/04/2021 9:23 am COMPARISON: None. HISTORY: ORDERING SYSTEM PROVIDED HISTORY: low back pain TECHNOLOGIST PROVIDED HISTORY: low back pain FINDINGS: Lumbar vertebral bodies are normal in height and alignment. No evidence of fracture. Visualized sacrum is unremarkable. No significant degenerative changes. [employer] Phone: Yuan, [facility] Incoming Radiant Results From [employer] - 08/04/2021 12:32 PM EDT EXAMINATION: THREE XRAY VIEWS OF THE LUMBAR SPINE 08/04/2021 9:23 am COMPARISON: None. HISTORY: ORDERING SYSTEM PROVIDED HISTORY: low back pain TECHNOLOGIST PROVIDED HISTORY: low back pain FINDINGS: Lumbar vertebral bodies are normal in height and alignment. No evidence of fracture. Visualized sacrum is unremarkable. No significant degenerative changes. IMPRESSION: Unremarkable examination of the lumbar spine. [employer] Phone: [employer] Phone: XR SPINE CERVICAL 2 VIEWSon 02-18-2021 [...] lesion. IMPRESSION: No acute osseous abnormality. Normal [facility] IMPRESSION: No acute osseous abnormality. [facility] EXAM: XR SPINE CERVICAL 2 VIEWS [...] intact. There is no destructive osseous lesion. [facility] User, Interfaces - 02/18/2021 3:27 PM [...] lesion. IMPRESSION IMPRESSION: No acute osseous abnormality. [facility] XR SPINE LUMBOSACRAL 5 VIEWS on 02-18-2021 [...] Mild disc space narrowing at L5-S1. Normal [facility] IMPRESSION: No acute osseous abnormality Mild disc space narrowing at L5-S1. [facility] EXAM: XR SPINE LUMBOSACRAL 5 VIEWS [...] grossly intact. Paravertebral soft tissues are unremarkable. [facility] User, Interfaces - 02/18/2021 3:27 PM [...] abnormality Mild disc space narrowing at L5-S1. [facility] , Urineon 1 Beta HCG ( test) Ql (U) Negative NEGATIVE [place], [place] Comment on above: Specimens with hCG l evels near the threshold of the test (25 mIU/mL) may give a negative or indeterminate result. In such cases, another test should be performed with a new specimen in 48-72 hours. If early is suspected clinically in this setting, correlation with quantitative serum b-hCG level is suggested. [employer] has confirmed the use of plasma for this test. This has not been cleared or approved by the U.S. Food and Drug Administration. The FDA has determined that such clearance is not necessary. COVID-19on 11-24-2020 SARS-CoV-2 [place], [place] SARS-CoV-2 Not Detected Not Detected [place], [place] Comment on above: The specimen is [...] this assay. Fact sheet for Healthcare Providers: https://www.fda.gov/media/459214/download Fact sheet for Patients: https://www.fda.gov/media/131478/download METHODOLOGY: RT-PCR SARS-CoV-2, Rapid [place], [place] Source .NASOPHARYNGEAL SWAB [place] US NON OB TRANSVAGINALon Negative pelvic ultrasound. [place], [place] EXAMINATION: PELVIC ULTRASOUND 09/01/2020 TECHNIQUE: Transvaginal [...] free fluid cul-de-sac likely physiologic in nature. [place], [place] Yuan, [facility] Incoming Radiant Results From [employer] - 09/01/2020 1:11 PM EDT EXAMINATION: PELVIC [...] physiologic in nature. IMPRESSION: Negative pelvic ultrasound. [place], [place] CA 125on 04-09-2020 CA 125 17 U/mL <38 [place], [place] CEAon 04-09-2020 CEA 1.0 ng/mL <3.9 [place], [place] Comment on above: The Sonia ECLIA as say is used. Results obtained with different assay methods cannot be used interchangeably. Otheron 03-19-2020 Direct Exam Negative [place], [place] VAGINITIS DNA PROBEon 2019 Direct Exam Positive Abnormal [place], [place] Direct Exam Method of testing is a DNA probe intended for detection and identification of Ovidio species, Gardnerella vaginalis, and Trichomonas vaginalis nucleic acid in vaginal fluid specimens from patients with symptoms of vaginitis/vaginosis. [place] Interpretation and review of laboratory results Abnormal [place] Special Requests NOT REPORTED [place] Specimen Description .VAGINA [place] Vital Signs Date Time Vital Sign Value Performing Clinician Facility 01-20-2023 12:30-0500 Respiratory rate 16 /min Manolo Alexander MD Work Phone: [facility] [employer] 01-20-2023 12:30-0500 SaO2% (BldA) [Mass fraction] 99 % Manolo Alexander MD Work Phone: [facility] [employer] [facility] 01-20-2023 12:23-0500 Body temperature 98.6 [degF] Manolo Alexander MD Work Phone: [employer] 01-20-2023 12:23-0500 Diastolic blood pressure 72 mm[Hg] Manolo Alexander MD Work Phone: [facility] 01-20-2023 12:23-0500 Heart rate 121 /min Manolo Alexander MD Work Phone: [facility] 01-20-2023 12:23-0500 Systolic blood pressure 122 mm[Hg] Manolo Alexander MD Work Phone: [facility] [employer] 06-13-2022 11:45-0400 Diastolic blood pressure 78 mm[Hg] Lizzy Lunag DO Work Phone: [employer] 06-13-2022 11:45-0400 Heart rate 64 /min Lizzycarly Lunag DO Work Phone: [facility] [employer] 06-13-2022 11:45-0400 Respiratory rate 16 /min Lizzycarly Lunag DO Work Phone: [employer] 06-13-2022 11:45-0400 SaO2% (BldA) [Mass fraction] 97 % Lizzy Lunag DO Work Phone: [employer] 06-13-2022 11:45-0400 Systolic blood pressure 120 mm[Hg] Lizzy Lunag DO Work Phone: [facility] [employer] 06-13-2022 10:16-0400 Body temperature 97.3 [degF] Lizzycarly Lunag DO Work Phone: [employer] 06-13-2022 06:37-0400 Body height 175.3 cm Lizzycarly Lunag DO Work Phone: [facility] [employer] 06-13-2022 06:37-0400 Body mass index (BMI) [Ratio] 22.8 kg/m2 Lizzycarly Lunag DO Work Phone: [employer] 06-13-2022 06:37-0400 Body weight 70.03 kg Lizzy Oakley DO Work Phone: [facility] [employer] 05-03-2022 14:19-0400 SaO2% (BldA) [Mass fraction] 97 % Pavan Pickard MD Work Phone: [facility] [employer] 05-03-2022 12:30-0400 Diastolic blood pressure 76 mm[Hg] Pavan Pickard MD Work Phone: [facility] [employer] 05-03-2022 12:30-0400 Heart rate 96 /min Pavan Pickard MD Work Phone: [facility] [employer] 05-03-2022 12:30-0400 Respiratory rate 18 /min Pavan Pickard MD Work Phone: [facility] [employer] 05-03-2022 12:30-0400 Systolic blood pressure 127 mm[Hg] Pavan Pickard MD Work Phone: [facility] [employer] 05-03-2022 11:35-0400 Body mass index (BMI) [Ratio] 22.15 kg/m2 Pavan Pickard MD Work Phone: [facility] [employer] 05-03-2022 11:35-0400 Body temperature 100.51 [degF] Pavan Pickard MD Work Phone: [facility] [employer] 05-03-2022 11:35-0400 Body weight 68.04 kg Pavan Pickard MD Work Phone: [facility] [employer] 02-23-2022 15:30-0400 Body height 172.72 cm Fredy Lerma Other [employer] Other 02-23-2022 15:30-0400 Body mass index (BMI) [Ratio] 23.11 kg/m2 Fredy Lerma Other [employer] Other 02-23-2022 15:30-0400 Body weight 68.95 kg Fredy Lerma Other [employer] Other 08-04-2021 11:15-0400 Body temperature 97.59 [degF] Naresh Anaya MD Work Phone: [employer] Work Phone: 08-04-2021 11:15-0400 Diastolic blood pressure 88 mm[Hg] Naresh Anaya MD Work Phone: [employer] Work Phone: 08-04-2021 11:15-0400 Heart rate 94 /min Naresh Anaya MD Work Phone: [employer] Work Phone: 08-04-2021 11:15-0400 Respiratory rate 16 /min Naresh Anaya MD Work Phone: [employer] Work Phone: 08-04-2021 11:15-0400 SaO2% (BldA) [Mass fraction] 98 % Naresh Anaya MD Work Phone: [employer] Work Phone: 08-04-2021 11:15-0400 Systolic blood pressure 128 mm[Hg] Naresh Anaya MD Work Phone: [employer] Work Phone: 11-30-2020 12:10-0500 BP Diastolic 67 mm[Hg] Lizzy [employer] [place] 11-30-2020 12:10-0500 BP Systolic 128 mm[Hg] [facility]zy [facility] [place] [place] 11-30-2020 12:10-0500 Pulse (Heart Rate) 68 /min [facility] [place] 11-30-2020 12:10-0500 Pulse Oximetry 98 % Lizzy [facility] [place] [place] 11-30-2020 12:10-0500 Respiratory Rate 16 /min [facility] [place] [place] 11-30-2020 11:45-0500 Body Temperature 98.49 [degF] [facility] [place] [place] 11-30-2020 07:02-0500 BMI (Body Mass Index) 21.99 kg/m2 [facility] [place] [place] 11-30-2020 07:02-0500 Body weight 65.59 kg Lizzy Flynn [facility], [place] 11-30-2020 07:02-0500 Height 172.7 cm [place] Encounters Encounter Date Encounter Type Care Provider Facility Start: 01-20-2023 End: 01-20-2023 Emergency department [facility] Start: 01-20-2023 End: 01-20-2023 Emergency department patient visit Manolo Alexander MD Work Phone: [facility] ED Comment on above: Pain, dental (Primar y Dx) Start: 12-27-2022 End: 12-28-2022 [facility] Start: 12-27-2022 End: 12-27-2022 Subsequent hospital visit by physician Pavan Pickard MD Work Phone: [facility] Comment on above: Screen for STD (sexu ally transmitted disease); Dysuria Start: 12-02-2022 End: 12-02-2022 Emergency department patient visit JUSTIN Wilbert CalderaGINGER [facility] Start: 06-13-2022 End: 06-13-2022 [facility] Start: 06-13-2022 End: 06-13-2022 Subsequent hospital visit by physician Lizzy Hernán Lunag Work Phone: [facility] Comment on above: Post-op pain (Primar y Dx) Start: 05-24-2022 End: 05-25-2022 ambulatory LIZZY OAKLEY [facility] Start: 05-24-2022 Encounter for gynecological examination (general) (routine) without abnormal findings [facility] Start: 05-24-2022 End: 05-24-2022 Patient encounter procedure Pavan Pickard MD Work Phone: [facility] Laboratory Start: 05-24-2022 End: 05-24-2022 Subsequent hospital visit by physician Pavan Pickard MD Work Phone: [facility] Laboratory Comment on above: Women's annual routi ne gynecological examination; Pelvic pain in female; Dyspareunia, female; Adenomyosis Start: 05-04-2022 End: 05-04-2022 ambulatory Fredy Lerma Other [employer] Other Start: 05-04-2022 Telephone encounter Fredy Panto[facility] Start: 05-03-2022 Emergency department patient visit [facility] Start: 05-03-2022 End: 05-03-2022 Emergency department patient visit Pavancharla Pickard MD Work Phone: [facility] ED Comment on above: Chest pain, unspecif ied type (Primary Dx); Acute viral syndrome Start: 03-28-2022 End: 03-28-2022 ambulatory Fredy Lerma Other [employer] Other Start: 03-28-2022 Telephone encounter Fredy Pantoja [facility] Start: 03-22-2022 End: 03-23-[address] [facility] Start: 03-22-2022 End: 03-22-2022 Subsequent hospital visit by physician Khurram Covid Screening Schedule [facility] Covid Screening Comment on above: Arrived Start: 03-09-2022 End: 03-09-2022 ambulatory Fredy Lerma Other [employer] Other Start: 03-09-2022 Telephone encounter Fredy Lerma [facility] Start: 03-08-2022 End: 03-09-2022 ambulatory PAVAN PICKARD [facility] Start: 02-23-2022 End: 02-23-2022 ambulatory Fredy Lerma Other [employer] Other Start: 02-23-2022 [facility] visit new patient Fredy Lerma [facility] Start: 12-04-2021 End: 12-05-2021 ambulatory MALLY YULI Facility: Start: 08-04-2021 End: 08-04-2021 Emergency department patient visit Naresh Anaya MD Work Phone: [facility] ED Comment on above: Myalgia (Primary Dx) ; Acute bilateral low back pain with sciatica, sciatica laterality unspecified Start: 05-19-2021 End: 05-19-2021 Subsequent hospital visit by physician Pavan Pickard MD Work Phone: [facility] Laboratory Comment on above: Vaginal discharge Start: 02-18-2021 End: 02-18-2021 Subsequent hospital visit by physician Navjot Swanson Work Phone: [facility] Comment on above: Arrived Start: 12-19-2020 Patient encounter procedure [facility] Start: 11-30-2020 End: 11-30-2020 Subsequent hospital visit by physician Lizzy Oakley Work Phone: [facility] [facility] Comment on above: Post-op pain (Primar y Dx) Start: 11-23-2020 End: 11-27-2020 Subsequent hospital visit by physician Mariah Covid19 Pat Screening Schedule [facility] PRE ADMIT Comment on above: Preoperative testing Start: 09-02-2020 Patient encounter procedure [facility] Start: 09-01-2020 End: 09-03-2020 Subsequent hospital visit by physician Mariah Ultrasound Room 2 At [facility] Ultrasound Comment on above: Pelvic pain [...] 08-04-2021 Hepatic function panel Jose Antonio Bejarano [employer] PA-C Work Phone: Start: 08-04-2021 SPECIMEN REJECTION [...] ion [Identifier] in Cervix by Cyto stain Naresh Anaya MD Work Phone: Start: 03-19-2020 Iadna ovidio specie s direct probe tq Mariela Mercado Work Phone: Plan of Treatment Date Care Activity Detail Author Start: 05-24-2025 Screening for malign ant neoplasm of cervix Pap smear [facility] Start: 06-22-2023 Depression Screen Depression Screen [facility] Start: 04-09-2023 Screening for malign ant neoplasm of cervix [facility] Start: 08-16-2022 Depression Screen Depression Screen [facility] Start: 07-28-2022 Influenza vaccination [facility] Start: 07-26-2022 End: 07-26-2022 Patient encounter procedure 07/26/2022 Office Visit Obstetrics and Gynecology Lizzy Lugo DO [address] [place] [address] [facility] Start: 06-27-2022 Influenza vaccination Flu vaccine (# 1) [facility] Start: 06-22-2022 End: 06-22-2022 Patient encounter procedure 06/22/2022 Office Visit Obstetrics and Gynecology Nancy Nobles PA-C [address] [place] [address] [facility] Start: 06-13-2022 End: 06-13-2022 Admission to same day surgery center 06/13/2022 Surgery IP Unit Lizzy Lugo DO [address], [place] [address] [phone] HYSTERECTOMY VAGINAL LAPAROSCOPIC ROBOTIC ASSISTED- POSS BSO,POSS [facility]COPIC COL[facility]OPEXY [facility] Comment on above: HYSTERECTOMY VAGINAL LAPAROSCOPIC ROBOTIC ASSISTED- POSS BSO,POSS LAPAROSCOPIC COLPOPEXY Start: 06-13-2022 End: 06-13-2022 Laps total hysterect 250 gm/< w/rmvl tube/ovary [facility] Start: 06-13-2022 Subsequent hospital visit by physician 06/13/2022 Hospital Encounter IP Unit Lizzy Lugo, DO [address] [place] [address] [facility] OR Start: 05-25-2022 End: 05-25-2022 Patient encounter procedure 05/25/2022 Office Visit Obstetrics and Gynecology Mariela Mercado, ASSURANCE MANAGER - CNM [address] [place] [address] [phone] [facility] OBSTETRICS & GYNECOLOGY Start: 05-24-2022 End: 05-24-2022 Patient encounter procedure 05/24/2022 Office Visit Obstetrics and Gynecology Lizzy Lugo, DO [address] [place] [address] [facility] OBSTETRICS & GYNECOLOGY [facility] Start: 08-16-2021 End: 08-16-2021 Patient encounter procedure 08/16/2021 Office Visit Obstetrics and Gynecology Lizzy Lugo DO [address] [place] [address] [facility] OBSTETRICS & GYNECOLOGY Start: 07-28-2021 Influenza vaccination [facility] Work Phone: Start: 12-15-2020 End: 12-15-2020 Office Visit 12/15/2020 Office Visit Obstetrics and Gynecology Lizzy Lugo DO [address] [place] [address] [facility] OBSTETRICS & GYNECOLOGY Start: 11-30-2020 End: 11-30-2020 Hospital Encounter [facility] OR Comment on above: LAPAROSCOPY EXPLORAT ORY, DIAGNOSTIC, LYSIS OF ADHESIONS, ENDOMETRIOSIS Start: 09-22-2020 End: 09-22-2020 Office Visit 09/22/2020 Office Visit Obstetrics and Gynecology Lizzy Lugo DO [address] [place] [address] [facility] OBSTETRICS & GYNECOLOGY Start: 07-30-2020 Pneumococcal 0-64 ye ars Vaccine (1 of 1 - PPSV23) Pneumococcal 0-64 years Vaccine (1 of 1 - PPSV23) [place], [place] Comment on above: Postponed from 11/15 (Insurance / Financial) Start: 07-28-2020 Influenza vaccination [place] Start: 07-22-2020 End: 07-22-2020 Office Visit 07/22/2020 Office Visit Obstetrics and Gynecology Mariela Mercado, KOFI - JULES [address] [place] [address] [address] [facility] OBSTETRICS & GYNECOLOGY Start: 05-13-2020 HPV vaccine (1 - 2-d ose series) HPV vaccine (1 - 2-dose series) [place], [place] Comment on above: Postponed from 11/15 (Not Indicated) Start: 04-09-2020 DTaP/Tdap/Td vaccine (1 - Tdap) DTaP/Tdap/Td vaccine (1 - Tdap) [place] Comment on above: Postponed from 11/15 (Not Indicated) Start: 04-09-2020 Varicella vaccine (1 of 2 - 2-dose childhood series) Varicella vaccine (1 of 2 - 2-dose childhood series) [place] Comment on above: Postponed from 11/15 (Not Indicated) Start: 04-02-2020 End: 04-02-2020 Ancillary Procedure [facility] OBSTETRICS [facility] GYNECOLOGY Start: 01-28-2020 Influenza vaccination Flu vaccine (# 1) [place] Comment on above: Postponed from 07/28 (Unavailable) Start: 09-23-2019 HPV vaccine (1 - Fem ilana 3-dose series) HPV vaccine (1 - Female 3-dose series) [place] Comment on above: Postponed from 11/15 (Not Indicated) Start: 09-10-2019 Chlamydia screen Chlamydia screen Me [place] Start: 08-20-2019 DTaP/Tdap/Td vaccine (1 - Tdap) DTaP/Tdap/Td vaccine (1 - Tdap) [place] Comment on above: Postponed from 11/15 (Not Indicated) Start: 08-20-2019 Varicella Vaccine (1 of 2 - 13+ 2-dose series) Varicella Vaccine (1 of 2 - 13+ 2-dose series) [place] Comment on above: Postponed from 11/15 (Not Indicated) Start: 2015 Cervical cancer screen Cervical canc er screen [place], [place] Start: 2015 Screening for malign ant neoplasm of cervix [place] Start: 2013 DTaP/Tdap/Td vaccine (1 - Tdap) DTaP/Tdap/Td vaccine (1 - Tdap) [place] Start: 2013 Third diphtheria, tetanus and acellular pertussis (DTaP) vaccination TDAP (ADULT) [facility] Start: 09-10-2013 Varicella vaccine (2 of 2 - 13+ 2-dose series) Varicella vaccine (2 of 2 - 13+ 2-dose series) [facility] Start: 2012 Tetanus vaccination [facility] Start: 2010 Screening for Chlamy shine trachomatis CHLAMYDIA SCREEN [facility] Start: 2007 HIV screening HIV SCREENING DISCUSSION [facility] Start: 2006 COVID-19 Vaccine (1) COVID-19 Vaccin e (1) [facility] Work Phone: Start: 2005 DTaP/Tdap/Td vaccine (6 - Tdap) DTaP/Tdap/Td vaccine (6 - Tdap) [facility] Start: 2005 HPV vaccine (1 - 2-d ose series) HPV vaccine (1 - 2-dose series) [place] Start: 2005 Vaccination for danni n papillomavirus HPV VACCINE ADOL (1 - 2-dose series) [facility] Start: 2000 Pneumococcal 0-64 ye ars Vaccine (1 - PCV) Pneumococcal 0-64 years Vaccine (1 - PCV) [facility] Start: 2000 Pneumococcal 0-64 ye ars Vaccine (1 of 1 - PPSV23) Pneumococcal 0-64 years Vaccine (1 of 1 - PPSV23) [place] Start: 2000 Pneumococcal 0-64 ye ars Vaccine (1 of 2 - PPSV23) Pneumococcal 0-64 years Vaccine (1 of 2 - PPSV23) [facility] Work Phone: Start: 1999 COVID-19 Vaccine (1) COVID-19 Vaccin e (1) [facility] Start: 1995 Varicella vaccine (1 of 2 - 2-dose childhood series) Varicella vaccine (1 of 2 - 2-dose childhood series) [place] Start: 05-16-1995 COVID-19 Vaccine (#1) COVID-19 Vacci ne (#1) [facility] Start: 1994 GONORRHEA SCREEN GONORRHEA SCREEN [facility] Start: 1994 Hepatitis C antibody , confirmatory test HEPATITIS C VIRUS SCREENING [facility] End: 07-30-2019 C.trachomatis N.gonorrhoeae DNA C.trachomatis N.gonorrhoeae DNA Microbiology Routine Abdominal pain, unspecified abdominal location 1 Occurrences starting 07/30/2019 until 07/30/2019 [place] Comment on above: 1 Occurrences starti ng 07/30/2019 until 07/30/2019 C.trachomatis N.gonorrhoeae DNA [place] End: 03-19-2020 C.trachomatis N.gonorrhoeae DNA C.trachomatis N.gonorrhoeae DNA Microbiology Routine Abdominal pain, unspecified abdominal location 1 Occurrences starting 03/19/2020 until 03/19/2020 [place] Comment on above: 1 Occurrences starti ng 03/19/2020 until 03/19/2020 End: 05-19-2021 C.trachomatis N.gonorrhoeae DNA C.trachomatis N.gonorrhoeae DNA Microbiology Routine Vaginal discharge 1 Occurrences starting 05/19/2021 until 05/19/2021 [employer] Phone: Comment on above: 1 Occurrences starti ng 05/19/2021 until 05/19/2021 End: 12-27-2022 Chlamydia Trachomatis & Neisseria gonorrhoeae (GC) by amplified detection [employer] Phone: Comment on above: 1 Occurrences starti ng 12/27/2022 until 12/27/2022 End: 03-22-2022 COVID-19 [employer] Phone: Comment on above: Once for 1 Occurrenc es starting 03/22/2022 until 03/22/2022 End: 08-04-2021 COVID-19, Rapid COVID-19, Rapid Microbiology Routine One Time for 1 Occurrences starting 08/04/2021 until 08/04/2021 [employer] Phone: Comment on above: One Time for 1 Occur rences starting 08/04/2021 until 08/04/2021 End: 07-30-2019 Culture, Genital Culture, Genital Microbiology Routine Vaginal discharge 1 Occurrences starting 07/30/2019 until 07/30/2019 [employer] [facility] Comment on above: 1 Occurrences starti ng 07/30/2019 until 07/30/2019 Culture, Genital [facility], [place] End: 05-19-2021 Culture, Genital Culture, Genital Microbiology Routine Vaginal discharge 1 Occurrences starting 05/19/2021 until 05/19/2021 [employer] Phone: Comment on above: 1 Occurrences starti ng 05/19/2021 until 05/19/2021 End: 04-09-2020 Cytopathology procedure, preparation of smear, genital source [facility] Lab Routine Screening for cervical cancer 1 Occurrences starting 04/09/2020 until 04/09/2020 [employer] [place] Comment on above: 1 Occurrences starti ng 04/09/2020 until 04/09/2020 End: 05-24-2022 Cytopathology procedure, preparation of smear, genital source PAP SMEAR Lab Routine Women's annual routine gynecological examination 1 Occurrences starting 05/24/2022 until 05/24/2022 [employer] Phone: Comment on above: 1 Occurrences starti ng 05/24/2022 until 05/24/2022 EKG 12 Lead EKG 12 Lead ECG STAT 08/04/2021 12:43 PM EDT [employer] Phone: End: 05-03-2022 EKG 12 Lead [employer] Phone: Comment on above: One Time for 1 Occur rences starting 05/03/2022 until 05/03/2022 End: 06-13-2022 INITIATE PACU OXYGEN THERAPY PROTOCOL Initiate PACU Oxygen Therapy Protocol Respiratory Care Routine Continuous until discontinued starting 06/13/2022 [employer] Comment on above: Continuous until dis continued starting 06/13/2022 Oxygen therapy [Mini mum Data Set] Initiate Oxygen Therapy Protocol Respiratory Care Routine Daily until discontinued starting 11/30/2020 [employer], KEILY Comment on above: Daily until disconti nued starting 11/30/2020 Oxygen therapy [Mini mum Data Set] Initiate Oxygen Therapy Protocol Respiratory Care Routine As Needed until discontinued starting 06/13/2022 [employer] Phone: Comment on above: As Needed until disc ontinued starting 06/13/2022 Phase I & II - meter ed glucose Phase I & II - metered glucose Point of Care Testing Routine As Needed until discontinued starting 11/30/2020 [employer], KEILY Comment on above: As Needed until disc ontinued starting 11/30/2020 Surgical Pathology Surgical Path ology Lab Routine Release Upon Ordering for 1 Occurrences starting 11/30/2020 [employer] Comment on above: Release Upon Orderin g for 1 Occurrences starting 11/30/2020 Surgical Pathology Surgical Path ology Lab Routine Release Upon Ordering for 1 Occurrences starting 06/13/2022 [employer] Phone: Comment on above: Release Upon Orderin g for 1 Occurrences starting 06/13/2022 End: 08-04-2021 Thyroxine (T4) free [Mass/volume] in Serum or Plasma T4, Free Lab Routine Once for 1 Occurrences starting 08/04/2021 until 08/04/2021 [employer] Phone: Comment on above: Once for 1 Occurrenc es starting 08/04/2021 until 08/04/2021 Thyroxine (T4) free [Mass/volume] in Serum or Plasma T4, Free Lab Routine 08/04/2021 12:30 PM EDT [employer] Phone: End: 08-04-2021 Urinalysis Reflex to Culture Urinalysis Reflex to Culture Lab STAT One Time for 1 Occurrences starting 08/04/2021 until 08/04/2021 [employer] Phone: Comment on above: One Time for 1 Occur rences starting 08/04/2021 until 08/04/2021 Payers Date Payer Category Payer Unknown [facility] [id number] 2021-Present [id number] 2014 Unknown [facility] xxxxxxxxxxxx 2014-Present [phone] [address] [place] [address] xxxxxxxxxxxx [id number] 2014 Unknown [id number] 1994 Unknown [id number] 1994 Unknown [id number] 1994 Unknown [id number] 1994 Unknown [id number] 1994 Unknown [id number] 1994 Unknown [id number] 1994 Unknown [id number] 1994 Unknown [id number] 1994 Unknown [id number] 1994 Unknown [id number] 1994 Unknown [id number] 1959 Unknown [id number] Social History Date Type Detail Facility Start: 07-30-2019 End: 06-13-2022 Tobacco smoking status NHIS Current every day smoker [place], [place] History of tobacco use Cigarette Smoker [place], [place] Start: 07-30-2019 End: 12-27-2022 Cigarettes smoked current (pack per day) - Reported [place] Start: 07-30-2019 Alcohol intake No [place], [place] Start: 1994 Sex Assigned At Not on file [place] Start: 04-09-2020 End: 12-27-2022 Alcohol intake Current drinker of alcohol (finding) [place] Start: 03-19-2020 Alcohol Comment social [place] Exposure to SARS-CoV -2 (event) Unable to assess [place], [place] Start: 06-23-2020 End: 06-13-2022 Tobacco use and exposure Never used [place], [place] Start: 04-23-2022 End: 01-20-2023 Exposure to SARS-CoV-2 (event) Not sure [place], [place] Start: 1995 Sex Assigned At Female [facility] Notes 02-23-2022 to 06-13-2022 Cookie Ni [...] Verbalizes understanding. documented in this encounter [facility] Work Phone: 06-13-2022 Hospital Discharg e [...] Amin in [address] Tian -- [place] office [phone] [place] office [phone] documented in this encounter [employer] Phone: 05-03-2022 Hospital Discharg Aries Gonzáles PA-C - 05/03/2022 Follow-up with primary care doctor 2 days for reevaluation. Continue to drink plenty of fluids as tolerated, Tylenol or Motrin as directed for discomfort and fever. Promptly return to emergency department for new, changing, worsening of symptoms or other concerns. The following attachments cannot be sent through Care Everywhere.Viral Infections ([place])Chest Pain: Musculoskeletal ([place])Fever ([place])documented in this encounter [employer] Phone: 02-23-2022 Evaluation note Encounter Date Diagnosis Assessment Notes Jan, Abdominal pain (ICD-10 - R10.9) PATIENT STATES THAT WITH BOWELS IT DOES GET BETTER IT IS NOT CONSISTENT. PROCEED WITH COLONOSCOPY. [employer] Other Evaluation note* Diagnosis Vaginal discharge Leukorrhea, not specified as infective documented in this encounter [employer] Phone: [email or web address] note* Diagnosis Myalgia- Primary Mylagia and myositis, unspecified Acute bilateral low back pain with sciatica, sciatica laterality unspecified documented in this encounter [employer] Phone: evaluation note* Diagnosis Chest pain, unspecified type- Primary Acute viral syndrome documented in this encounter [employer] Phone: evaluation note* Diagnosis Women's annual routine gynecological examination Pelvic pain in female Unspecified symptom associated with female genital organs Dyspareunia, female Dyspareunia Adenomyosis Endometriosis of uterus documented in this encounter [employer] Phone: evaluation noteNo InformationNoR[facility] Other Evaluation note* Diagnosis Post-op pain- Primary Other acute postoperative pain Dysmenorrhea Dyspareunia in female documented in this encounter [employer] Phone: [email or web address] note* Diagnosis Screen for STD (sexually transmitted disease) Screening examination for venereal disease Dysuria documented in this encounter [employer] Phone: [email or web address] note* Diagnosis Pain, dental- Primary Unspecified disorder of the teeth and supporting structures documented in this encounter [employer] Phone: History general Narrative - Reported* Type Description Date Surgical History cervical biopsy Surgical History ABLATATION Hospitalization History child [facility] Other Hospital Discharge instructions* Attachments The following attachments cannot be sent through Care Everywhere. * Back Pain ([place]) * Back: Stretches: Exercises ([place]) [facility] Phone: Hospital Discharge instructions* Attachments The following attachments cannot be sent through Care Everywhere. * Tooth and Gum Pain ([place]) [facility] [employer] Phone: reason for visit Narrative* Auth/Cert Specialty Diagnoses / Procedures Referred By Mic vazquez Referred To Contact Diagnoses Pelvic pain Adenomyosis Dyspareunia in female PELVIC PAIN, ADENOMYOSIS, DYSPAREUNIA Procedures WA LAPAROSCOPY W TOT HYSTERECTUTERUS <=250 GRAM W TUBE/OVARY HYSTERECTOMY VAGINAL LAPAROSCOPIC ROBOTIC ASSISTED- POSS BSO,POSS LAPAROSCOPIC COLPOPEXY Lizzy Lugo, DO [address] [place] [address] [employer] [address] [place] [address] Referral ID Status Reason Start Date Expiration Date Visits Re quested Visits Authorized [id number] 1 1 LARRY ELLIS [employer] Phone: Assessments Diagnosis Vaginal discharge Leukorrhea, not [...] FoundDocuments on File Type Date Recorded 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 Advance Directives and Living Will Power of Group Managing Director Latest Code Status on File Code Status Date Activated Date Inactivated Comments Full Code 12/28/2018 1:05 AM 12/28/2018 12:13 PM Full Code 12/27/2018 10:20 PM 12/28/2018 12:37 AM Full Code 12/27/2018 9:58 PM 12/27/2018 10:20 PM Full Code 11/01/2016 7:25 AM 11/03/2016 12:47 PM Full Code 11/01/2016 6:26 AM 11/01/2016 7:25 AM Documents on File Type Date Recorded 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 ACP-Advance Directive ACP-Power of Group Managing Director Latest Code Status on File Code Status [...] Documents on File Type Date Recorded 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 Tian -- [place] office [phone] [place] office [phone] documented in this encounter History of Present [...] Sherwood RN - 11/30/2020 10:30 AM EST [place] warmer applied at this time. * Beth [...] Procedures US Non OB Transvaginal Mariela Mercado, ASSURANCE MANAGER - CNM [address] [address] [facility] [address] [place] [address] Status Reason Specialty Diagnoses / Procedures Referre d By Contact Referred To Contact Diagnoses Pelvic pain Menorrhagia Dysmenorrhea PELVIC PAIN, MENORRHAGIA, DYSMENORRHEA Procedures WA LAP,FULGURATE/EXCISE LESIONS WA LAP,RMV ADNEXAL STRUCTURE WA HYSTEROSCOPY,W/ENDO BX LAPAROSCOPY EXPLORATORY, DIAGNOSTIC, LYSIS OF ADHESIONS, ENDOMETRIOSIS SALPINGECTOMY LAPAROSCOPIC DILATATION AND CURETTAGE HYSTEROSCOPY CAUTERY ABLATION, Lizzy Sanchez DO [address] [place] [address] [facility] Reason Comments Chest Pain ongoing for [...] section and content) DATE CREATED AUTHOR 12/20/2020 [place] [facility] DATE CREATED AUTHOR AUTHOR'S ORGANIZ ATION 02/19/2021 [facility] DATE CREATED AUTHOR AUTHOR'S ORGANIZ ATION 12/08/2021 [facility] DATE CREATED AUTHOR AUTHOR'S ORGANIZ ATION 04/02/2022 [facility] DATE CREATED AUTHOR AUTHOR'S ORGANIZ ATION 01/21/2023 [facility] [place] [facility] Scheduled Active and Recently Administ [...] 100 mL IVPB (COMPLETED) 2,000 mg, IntraVENous, NUCLEAR MEDICINE MEDICAL DIRECTOR TO O.R., 1 dose, On Mon06/13/22 at [...] Care Teams (unrecognized sec tion and content) 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 Specialty Start Date End Date Pavan De La Torre MD [address] [place] [address] PCP - General 05/19/21 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 Specialty Start Date End Date Pavan De La Torre MD [address] [place], [place] [id number] PCP - General 05/19/21 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 Specialty Start Date End Date Pavan De La Torre MD [address] [place] [address] PCP - General 05/19/21 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 Specialty Start Date End Date Pavan De La Torre MD [address] [place] [address] PCP - General 05/19/21 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 Specialty Start Date End Date Pavan De La Torre MD [address], [place] [id number] PCP - General 05/19/21 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 Specialty Start Date End Date Pavan De La Torre MD [address] [place], [place] [id number] PCP - General 05/19/21 FOR RECORDS PERTAINING [...] BE BASED ON THE PRIMARY CLINICAL RECORDS. [facility] [employer] [facility]. provides no warranty or guarantee of the accuracy or completeness of information in this document.
== END 2024-11-06 08:59 | disposition home or self-care (01) ==
LOC: RAD 08:58
PROVIDERS: Visit Provider Podiatrist Foot & Ankle Surgery
DX: M79.671 Pain in right foot (principal); S92.351D Displaced fracture of fifth metatarsal bone, right foot, subsequent encounter for fracture with routine healing
CPT/HCPCS: 73630